=== PATIENT | female | born 1960 | race Caucasian/White ===

== ENCOUNTER 2020-11-09 06:54 | Outpatient (NON) | payer BC, SELFPAY ==
[2020-11-10 01:18] LABS: SARS-CoV-2 RNA PCR Negative
== END 2020-11-09 06:55 ==
LOC: ANHCOVIDDT 06:55
PROVIDERS: PCP Physician Assistant; Visit Provider Physician Assistant
DX: Z20.828 Contact with and (suspected) exposure to other viral communicable diseases (principal); R51.9 Headache, unspecified
CPT/HCPCS: 87635; C9803; U0003

== ENCOUNTER → 2021-06-11 06:35 | Outpatient (CLI) | payer SELFPAY ==
[2021-06-11 17:52] LABS: SARS-CoV-2 RNA PCR Negative
== END ==
PROVIDERS: PCP Physician Assistant
DX: R06.9 Unspecified abnormalities of breathing (principal); Z20.822 Contact with and (suspected) exposure to COVID-19
CPT/HCPCS: C9803; U0003; U0005

== ENCOUNTER → 2022-03-05 16:29 | Outpatient (CLI) | payer OTHER, SELFPAY ==
--- NOTE | ~2022-03-05 | XR_ITS ---
EXAMINATION: XR chest 2V DATE: 03/05/2022 16:39 INDICATION: Chronic cough. TECHNIQUE: Frontal and lateral views of the chest were obtained. COMPARISON: CT abdomen and pelvis 10/30/2019 FINDINGS: The chest demonstrates clear lungs without pneumonia, pleural effusion, or pneumothorax. Th e heart size is normal. IMPRESSION: 1. No acute cardiopulmonary disease. Reviewed, dictated and finalized at location A.
== END ==
PROVIDERS: PCP Physician Assistant; Visit Provider Family Medicine
DX: R05.3 Chronic cough (principal)
CPT/HCPCS: 71046

== ENCOUNTER → 2022-06-25 13:57 | Outpatient (CLI) | payer OTHER, SELFPAY ==
--- NOTE | ~2022-06-25 | CT_ITS ---
EXAMINATION:CT diagnostic chest w con DATE: 06/25/2022 14:26 INDICATION: Chronic cough. TECHNIQUE: Computed tomography (CT) of the chest was performed with 75 mL Omnipaque 350 intravenous c ontrast. Automated exposure control and iterative reconstruction technique were employed. The dose-le ngth product (DLP) was 506.48 mGy-cm. COMPARISON: CT abdomen and pelvis 10/30/2019 FINDINGS: The lungs demonstrate minimal atelectasis. A calcified left lung nodule is consistent with old granulomatous disease. No pleural effusion. The heart size is normal. There are coronary artery c alcifications. No pericardial effusion. There is an 8 mm nodule in left thyroid lobe, likely not clin ically significant. There is a small sliding hiatal hernia. There are changes of cholecystectomy. The re is mild thoracic spondylosis. IMPRESSION: 1. Small sliding hiatal hernia. Reviewed, dictated and finalized at location A.
[2022-06-25 14:19] LABS: Estimated Glomerular Filt Rate > 60
== END ==
PROVIDERS: PCP Physician Assistant; Visit Provider Physician Assistant
DX: R05.3 Chronic cough (principal); K44.9 Diaphragmatic hernia without obstruction or gangrene
CPT/HCPCS: 71260; Q9967

== ENCOUNTER → 2022-07-30 10:52 | Outpatient (CLI) | payer OTHER, SELFPAY ==
--- NOTE | ~2022-07-30 | XR_ITS ---
EXAMINATION: XR barium swallow DATE: 07/30/2022 11:33 INDICATION: Chronic cough and dysphagia TECHNIQUE: The patient drank thick barium, gas-producing crystals, and thin barium. Fluoroscopy of th e hypopharynx and esophagus was performed. Fluoroscopy exposure time was 2.7 minutes. The DAP for thi s procedure was 18.882 Gycm2. COMPARISON: None. FINDINGS: There is no mass or stricture of the esophagus. Esophageal motility is normal. There is a s mall sliding hiatal hernia. There is a large volume of asymptomatic spontaneous gastroesophageal refl ux. The stomach shows a normal folding pattern. IMPRESSION: 1. Large volume of asymptomatic spontaneous gastroesophageal reflux. 2. Small sliding hiatal hernia. Reviewed, dictated and finalized at location B.
== END ==
PROVIDERS: PCP Physician Assistant; Visit Provider Physician Assistant
DX: R05.3 Chronic cough (principal); K44.9 Diaphragmatic hernia without obstruction or gangrene; K21.9 Gastro-esophageal reflux disease without esophagitis
CPT/HCPCS: 74220

== ENCOUNTER → 2022-08-04 15:39 | Outpatient (CLI) | payer OTHER, SELFPAY ==
--- NOTE | ~2022-08-04 | XR_ITS ---
EXAMINATION: XR cervical spine min 6V DATE: 08/04/2022 16:40 INDICATION: Neck pain. Headache. TECHNIQUE: 7 views of cervical spine including flexion and extension views were obtained. COMPARISON: None. FINDINGS: There is 6 degrees levocurvature of cervicothoracic spine. Vertebral body heights are ricardo l. There is mildly decreased disc height at C3-C4 and moderately decreased disc height at C5-C6 and C 6-C7. There is multilevel uncovertebral joint osteoarthritis, moderate to severe bilaterally at C5-C6 and C6-C7. There is multilevel mild facet joint osteoarthritis. On the right, there is moderate neur al foraminal stenosis at C5-C6 and C6-C7. The cervical spine is hypomobile inferiorly with flexion an d extension. There is mild central canal stenosis at C5-C6 and C6-C7. No prevertebral soft tissue swe lling. IMPRESSION: 1. Moderate cervical spondylosis. Reviewed, dictated and finalized at location A.
== END ==
PROVIDERS: PCP Physician Assistant; Visit Provider Chiropractor
DX: R51.9 Headache, unspecified (principal); M47.892 Other spondylosis, cervical region
CPT/HCPCS: 72052

== ENCOUNTER → 2022-08-07 16:25 | Outpatient (CLI) | payer OTHER, SELFPAY ==
--- NOTE | ~2022-08-07 | XR_ITS ---
EXAMINATION: XR sacrum coccyx min 2V INDICATION: SC1-70 antibody positive, arthralgia TECHNIQUE: Three views of the sacrum and coccyx are obtained. COMPARISON: None available FINDINGS: Bone alignment is normal. There is no fracture. No abnormal sclerosis or erosion are identi fied. There is mild osteoarthritis of the hips. Phleboliths are noted in the pelvis. There is moderat e lumbar spondylosis at L5-S1. IMPRESSION: 1. No acute osseous abnormality. Reviewed, dictated and finalized at location B.
--- NOTE | ~2022-08-07 | XR_ITS ---
EXAMINATION: XR lumbar spine 2-3V DATE: 08/07/2022 17:53 INDICATION: SCL-70 antibody positive, arthralgia TECHNIQUE: Anteroposterior and lateral views of the lumbar spine, and cone-down lateral view of the l umbosacral junction were obtained. COMPARISON: 10/10/2011 FINDINGS: Bone alignment is normal. There is no fracture. The vertebral heights are normal. There is moderate loss of intervertebral disc space height at L5-S1 and mild loss of intervertebral disc space height throughout the remaining lumbar spine. Small degenerative osteophytes project from the anteri or endplates of multiple vertebral bodies. There is moderate facet joint osteoarthritis of the lower lumbar spine. IMPRESSION: 1. Moderate lumbar spondylosis without acute findings. Reviewed, dictated and finalized at location B.
== END ==
DX: R76.8 Other specified abnormal immunological findings in serum (principal); M25.541 Pain in joints of right hand; M25.542 Pain in joints of left hand; M25.571 Pain in right ankle and joints of right foot; M25.572 Pain in left ankle and joints of left foot; M47.816 Spondylosis without myelopathy or radiculopathy, lumbar region
CPT/HCPCS: 72100; 72220

== ENCOUNTER 2022-08-22 11:21 | Emergency (ER) | payer OTHER, SELFPAY ==
--- NOTE | ~2022-08-22 | XR_ITS ---
XR foot LT min 3V 08/22/2022 11:38 Indication: Trauma to the left first and second toes. Procedure: 4 views left foot Comparison: No prior studies for comparison. Findings: No fracture, subluxation or dislocation. No significant soft tissue abnormality. No foreign bodies. Lisfranc joint intact. Impression: 1: No acute fracture. Reviewed, dictated and finalized at location B. Impression: 1: No acute fracture.
--- NOTE | 2022-08-22 11:27 | ED.LOWEXIN ---
HPI - Extremity Injury (Lower) General Stated Complaint: INJURED TOE Time Seen by Provider: 08/22/22 11:30 Source: patient Mode of arrival: ambulatory Limitations: no limitations History of Present Illness HPI Narrative: Ms. Mendez is a 62-year-old female patient presenting to the clinic today with complaints of right great toe and second toe pain after dropping a 2 x 4 on it this morning. She reports pain is towards the end of the toe. No open wounds to the second or great toe. Related Data Home Medications Medication Instructions Recorded Confirmed alprazolam 0.25 mg tablet 0.25 mg PO 08/22/22 hydrochlorothiazide 12.5 mg capsule 12.5 mg PO DAILY 08/22/22 08/22/22 meloxicam 7.5 mg tablet 7.5 mg PO BID 08/22/22 08/22/22 potassium chloride 10 mEq 10 meq PO DAILY 08/22/22 08/22/22 tablet,extended release tizanidine 4 mg tablet 4 mg PO Q8H 08/22/22 08/22/22 Allergies Allergy/AdvReac Type Severity Reaction Status Date / Time amoxicillin Allergy Unknown Rash Verified 08/22/22 11:30 Penicillins Allergy Rash Verified 08/22/22 11:30 Review of Systems Review of Systems: Pertinent positives per HPI. Patient denies any fever, chills, rash, headache, visual changes, dizziness, cough, runny nose, sore throat, shortness of breath, chest pain, palpitations, nausea, vomiting, diarrhea, constipation, abdominal pain, or any urinary issues. [facility] Past Medical History Medical History (Updated 08/22/22 @ 11:50 by Darien Cunningham APRN) Anemia Basal cell carcinoma (BCC) forehead Common bile duct dilatation Elevated liver enzymes GERD (gastroesophageal reflux disease) Jaundice Uterine fibroid Surgical History Surgical History Hx of local excision of skin lesion removal of basal cell carcinoma on forehead Family History Family History Father Cerebrovascular accident Grandparent Family history of arthritis Mother Family history of mental disorder Social History Social History Smoking status: Never smoker Alcohol intake: never Substance use: never Gender identity (if verbalized by the patient): Female Spiritual care concerns: No Agree to blood products: Yes Comments At the time of my signature, I reviewed and agree with the nursing past medical, surgical, social, and family history. There is no relevant family history pertinent to the patient complaint. Exam Narrative: General: Well-developed, well nourished, in no apparent distress Head: Normocephalic, atraumatic. Cardio: Regular rate and rhythm, s1 and s2 normal, no murmur appreciated. Resp: Clear to auscultation bilaterally, no rhonchi, rales, wheezing or rubs. Musculoskeletal: No deformity, mild redness to the distal great toe, tender to palpation over the distal great and second toe, grossly normal range of motion, muscle strength strong and equal, peripheral pulse strong, no edema, no cyanosis, normal gait and station Course Course Emergency Course: Portions of this record may have been created with voice recognition software. Level of Care: Express Care Visit Vital Signs Vital signs: Vital signs reviewed MDM - Extremity Injury (Lower) MDM Narrative Medical decision making narrative: At the time of visit patient is resting comfortably on the exam table. X-ray was completed and was negative for any fracture or malalignment of the right foot. Supportive measures were discussed with the patient she voiced understanding of discharge instructions and agrees to the treatment plan. Differential Diagnosis Differential diagnosis: Likely fracture of toe and other (Toe contusion, soft tissue injury) Imaging Data Radiologist's impression: Close Foot X-Ray (Signed) Heath Dugan - 08/22/22 Launch?[facility] [place] [id number]
[2022-08-22 11:38] VITALS: BP 184/95; PULSE 98; RESP 16; TEMP 36.8; O2SAT 97
== END 2022-08-22 11:54 | disposition home or self-care (01) ==
PROVIDERS: Emergency Provider Nurse Practitioner Family; PCP Physician Assistant
DX: S90.111A Contusion of right great toe without damage to nail, initial encounter (principal); S90.122A Contusion of left lesser toe(s) without damage to nail, initial encounter; W20.8XXA Other cause of strike by thrown, projected or falling object, initial encounter; K21.9 Gastro-esophageal reflux disease without esophagitis; Z85.828 Personal history of other malignant neoplasm of skin
CPT/HCPCS: 73630; 99213; G0463

== ENCOUNTER → 2022-10-20 13:28 | Outpatient (CLI) | payer OTHER, SELFPAY ==
--- NOTE | ~2022-10-20 | MM_ITS ---
EXAMINATION: MM screening lisset BI w indira HISTORY: Screening mammogram TECHNIQUE: Craniocaudal and mediolateral oblique 3-D tomosynthesis images were obtained and synthetic 2-D images were generated. CAD analysis was submitted and interpreted. COMPARISON: No prior mammogram is available for comparison at this institution. BREAST PARENCHYMAL COMPOSITION: There are scattered areas of fibroglandular density. FINDINGS: No suspicious mass, calcification, or architectural distortion are identified in either nan ast to suggest malignancy. IMPRESSION: 1. No mammographic evidence of malignancy. 2. Recommend routine screening mammography in one year. BI-RADS Category 1: Negative Reviewed, dictated and finalized at location A. 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
== END ==
PROVIDERS: PCP Physician Assistant; Visit Provider Obstetrics & Gynecology Gynecology
DX: Z12.31 Encounter for screening mammogram for malignant neoplasm of breast (principal)
CPT/HCPCS: 77063; 77067

== ENCOUNTER → 2022-11-10 12:16 | Outpatient (CLI) | payer OTHER, SELFPAY ==
--- NOTE | ~2022-11-10 | DEXA_ITS ---
Bone Density Report Name: JESUS WILKINS Age: 62 Sex: Female Ethnicity: White Date of : 1960 Indication: postmenopausal; screening for osteoporosis; Referring Provider: DOUG RUIZ Study: Bone densitometry was performed. Exam Date: November 10, 2022 Accession number: [id number] Bone Density: Region BMD T-score Z-score Classification AP Spine (L1-L4) 1.101 0.5 1.9 Normal Femoral Neck (Left) 0.992 1.3 2.6 Normal Total Hip (Left) 1.003 0.5 1.5 Normal Femoral Neck (Right) 0.914 0.6 1.9 Normal Total Hip (Right) 1.016 0.6 1.6 Normal Total Hip Mean 1.010 0.6 1.6 Normal World Health Organization criteria for BMD impression classify patients as: Normal (T-score at or above -1.0), Osteopenia (T-score between -1.0 and -2.5), or Osteoporosis (T-score at or below -2.5). 10-year Fracture Risk: FRAX not reported because: All T-scores for Spine Total, Hip Total, Femoral Neck at or above -1.0 Clinical Information Provided by Patient: Has used the following medications: Vitamin D, MTV Patient maximum height was 64 Menopause Age: 60 No regular weight bearing exercise Does not regularly consume dairy products Onset of menses at age 14 Number of children 2 Impression: The patient has normal bone mass. Discussion: BONE DENSITY IS ABOVE THE MINIMUM DESIRABLE LEVEL AT ALL SKELETAL SITES TESTED. This patient?s bone mineral density is above the minimum desirable level (T-score -1.0 or better) at all sites measured. The patient should follow a healthful lifestyle (good nutrition with adequate calcium and vitamin D, and appropriate weight-bearing exercise). Follow-Up: Consider repeating this study in 5 years or sooner if there is some new clinical indication. Reported by: KARLI on 11/10/2022 1:16:00 PM. Reviewed, dictated and finalized at location AAmos BOONE
== END ==
PROVIDERS: PCP Obstetrics & Gynecology Gynecology; Visit Provider Obstetrics & Gynecology Gynecology
DX: Z78.0 Asymptomatic menopausal state (principal)
CPT/HCPCS: 77080

== ENCOUNTER → 2024-01-21 12:40 | Outpatient (CLI) | payer OTHER, SELFPAY ==
--- NOTE | ~2024-01-21 | US_ITS ---
EXAMINATION: US transvaginal DATE: 01/21/2024 13:09 INDICATION: Postmenopausal bleeding TECHNIQUE: Multiple endovaginal sonographic images of the pelvis were obtained. COMPARISON: None. FINDINGS: The uterus measures 7.4 x 3.0 x 6.0 cm. The endometrial complex measures 6 mm. Intramural f ibroids of the uterus measure up to 2.2 cm. The left ovary is not visualized however no left adnexal abnormality is seen. The right ovary measures 1.9 x 1.1 x 1.2 cm. There is normal vascular flow in th e right ovary. There is no free fluid in the pelvis. IMPRESSION: 1. Uterine fibroids. Reviewed, dictated and finalized at location F. AGE SCREENER IMPRESSION: 1. Uterine fibroids.
== END ==
PROVIDERS: PCP Obstetrics & Gynecology Gynecology; Visit Provider Obstetrics & Gynecology Gynecology
DX: N95.0 Postmenopausal bleeding (principal); D25.9 Leiomyoma of uterus, unspecified
CPT/HCPCS: 76830

== ENCOUNTER 2024-02-02 15:30 | Outpatient (CLI) | payer OTHER, SELFPAY ==
[2024-02-02 16:13] LABS: Anion Gap 5 mmol/L (8-16); Blood Urea Nitrogen 11 mg/dL (7-17); Carbon Dioxide 31 mmol/L (22-30); Chloride 95 mmol/L (98-107); Estimated Glomerular Filt Rate > 60; Glucose 96 mg/dL (65-110); Potassium 3.2 mmol/L (3.4-5.0); Sodium 131 mmol/L (137-145)
== END 2024-02-02 15:31 | disposition home or self-care (01) ==
LOC: ANHSURGERY 15:36
PROVIDERS: Anesthesiology; PCP Physician Assistant; Visit Provider Obstetrics & Gynecology Gynecology
DX: Z79.899 Other long term (current) drug therapy (principal); Z01.818 Encounter for other preprocedural examination
CPT/HCPCS: 36415; 80048

== ENCOUNTER 2024-02-08 01:58 | Day surgery (SDC) | payer OTHER, SELFPAY ==
[2024-02-02 08:45] VITALS: BMI 36.9
--- NOTE | 2024-02-02 08:50 | PC.NURSE ---
Report to the Outpatient Waiting Room, entrance under the green pavilion located off [facility], at time 7:00 on date 02/08/24. Planned Procedure Time: 9:00. Time changes happen often and if your time is changed the preop area will call you the afternoon before. - You and your visitor will be asked to self-screen and do not enter if you have any COVID symptoms. - A mask is optional within the hospital at this time. Patients may have clear liquids (water, carbonated beverages, clear teas, apple juice) until 3 hours prior to surgery (6:00) with a maximum of 20 ounces. - No food from midnight until time of surgery Take the following medications with a SIP of water the morning of surgery: EYE DROPS, ALPRAZOLAM IF NEEDED DO NOT STOP ANY OF YOUR OTHER PRESCRIPTION MEDICATIONS PRIOR TO SURGERY ?EXCEPT THE FOLLOWING Medications to discontinue per physician: VITAMINS Date to take last dose: 02/04/24 Please no make-up, nail faroese, hairspray, perfume, deodorant, or body powder the day of surgery. No jewelry (including any body piercings) or valuables the day of surgery, leave them at home. Please take a shower or bath the night before, or the morning of, surgery with an antibacterial soap. Wear comfortable, loose fitting clothing. - Jewelry must be removed prior to entering the operating room. Rings and piercings that are not removed may be cut off. - The hospital will not accept responsibility for valuables. - Please leave all valuables, including medications, at home the day of surgery. If you are going home after surgery, a licensed pizza delivery driver must drive you home. - NO public transportation without another adult if you receive anesthesia. - We recommend that an adult stay with you for 24 hours following discharge. - We also recommend that you do not drive, make important decision, drink alcoholic beverages, or take any drugs that were not prescribed by your health care provider for at least 24 hours after your discharge time. Follow any additional instructions given to you from your surgeon. If you or anyone in your household have experienced Covid symptoms in the past week, please notify your surgeon or the nurse liaison at the phone number below for possible testing. Telephone instructions given to GARETT LEE and asked if any additional questions and then verbalized understanding. Patient advised to call surgeon office or pre surgery nurse liaison [phone] if any additional questions.
[2024-02-08] MEDS: ACETAMINOPHEN 500 MG TABLET 1000 MG PO (07:09)
[2024-02-08 07:14] VITALS: BP 168/96; PULSE 87; RESP 16; TEMP 36.6; O2SAT 99
--- NOTE | 2024-02-08 07:22 | WPDHPUPDATE1 ---
History and Physical Update Update Date/Time: 02/08/24 07:22 History and Physical has been reviewed, including an updated exam of the patient. There are NO changes in the patient's condition. Risks, benefits, and alternatives have been discussed and questions answered. Patient agrees to proceed with procedure.
--- NOTE | 2024-02-08 07:23 | PM.HPGS ---
History of Present Illness History of Present Illness Consent: Risks, benefits, and alternatives have been discussed and questions answered. Patient agrees to proceed with procedure. Chief complaint: Post Menopausal Bleeding Narrative: Perla Mendez is a 63 year old female with an episode of postmenopausal bleeding. The patient underwent pelvic ultrasound which showed a thickened endometrium at 6mm. It was recommended to undergo D&C hysteroscopy. Risks of infection, bleeding, perforation, and possible pathology were reviewed. Patient voices understanding and agrees to proceed. 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, as well as basal cell Uterine fibroid Surgical History Surgical History (Updated 02/08/24 @ 07:25 by Amanda Farooq MD) History of hysteroscopy with myomectomy Hx of local excision of skin lesion removal of basal cell carcinoma on forehead Family History Family History Father Cerebrovascular accident Hypertension Heart disease Grandparent Family history of arthritis Hypertension Heart disease Cerebrovascular accident Mother Family history of mental disorder Depression Grandparent Heart disease Social History Social History Smoking status: Never smoker Alcohol intake: never Substance use: never Substance use type: does not use Lack of Transportation: No Lack of Food: Never True Current Housing: I Have Housing Concerned About Future Housing: No Difficulty Paying Gas/Electric Bills: No Difficulty Paying for Meds: No Currently Unemployed: No Education: Master's Degree or Higher Difficulty w/ Childcare or Family Care: No Living arrangements: alone Gender identity (if verbalized by the patient): Female Spiritual care concerns: No Agree to blood products: Yes Meds Home Medications and Allergies Home Medications Medication Instructions Recorded Confirmed Type alprazolam 0.25 mg tablet 0.25 mg PO PRN PRN Anxiety 08/22/22 02/02/24 History hydrochlorothiazide 12.5 mg capsule 12.5 mg PO DAILY 08/22/22 02/02/24 History meloxicam 7.5 mg tablet 7.5 mg PO BID PRN Pain 08/22/22 02/02/24 History potassium chloride 10 mEq 10 meq PO DAILY 08/22/22 02/02/24 History tablet,extended release acetaminophen 325 mg capsule 325 mg PO Q6H PRN Pain 07/30/23 02/02/24 History (Tylenol) cholecalciferol (vitamin D3) 50 50 mcg PO DAILY 07/30/23 02/02/24 History mcg (2,000 unit) capsule mometasone 0.1 % topical cream 1 applic topical DAILY #15 grams 07/30/23 02/02/24 Rx fluticasone propionate 50 2 - 3 spray intranasal BID #16 mL 10/26/23 02/02/24 Rx mcg/actuation nasal spray,suspension (Flonase Allergy Relief) latanoprost 0.005 % eye drops 1 drp EACH EYE DAILY 02/02/24 02/02/24 History Allergies Allergy/AdvReac Type Severity Reaction Status Date / Time amoxicillin Allergy Unknown Rash Verified 02/08/24 07:07 Penicillins Allergy Rash Verified 02/08/24 07:07 Vital Signs Vital Signs - 24 hr 02/08/24 07:14 Temperature 98 F Pulse Rate 87 Respiratory Rate 16 Blood Pressure 168/96 H Pulse Oximetry 99 Oxygen Delivery Room Air Exam Const: General: healthy appearing and alert Orientation/consciousness: patient oriented x3 Resp: Effort & Inspection: normal respiratory effort Auscultation: clear to auscultation bilaterally GI: GI Palp: Yes Soft to palpation, No Tenderness to palpation present (GI) and No Palpable mass present : External Female Exam: normal external ap
[2024-02-08] MEDS: LACTATED RINGERS 1,000 ML 30 ML IV CONT (07:53)
[2024-02-08 08:00] LABS: Sodium 137 mmol/L (137-145)
--- NOTE | 2024-02-08 08:01 | WPDANESEPPF ---
Anes - Initial Pre Proc Eval Procedure: Operation Date: 02/08/24 09:00 Proposed Procedures p Hysteroscopy Dilation and Curettage - Amanda Farooq MD Date/Time: 02/08/24 08:01 Surgeon: Amanda Farooq MD Pre Op Diagnosis: Post Menopausal Bleeding Patient Data Age: 63 Gender: F Height: 1.63 m Weight: 97.55 kg Last Vital Signs Temp 36.6 C 02/08/24 07:14 Pulse 87 02/08/24 07:14 Resp 16 02/08/24 07:14 BP 168/96 H 02/08/24 07:14 Pulse Ox 99 02/08/24 07:14 O2 Del Method Room Air 02/08/24 07:14 Allergies Allergy/AdvReac Type Severity Reaction Status Date / Time amoxicillin Allergy Unknown Rash Verified 02/08/24 07:07 Penicillins Allergy Rash Verified 02/08/24 07:07 Home Medications Medication Instructions Recorded Confirmed Type alprazolam 0.25 mg tablet 0.25 mg PO PRN PRN Anxiety 08/22/22 02/02/24 History hydrochlorothiazide 12.5 mg capsule 12.5 mg PO DAILY 08/22/22 02/02/24 History meloxicam 7.5 mg tablet 7.5 mg PO BID PRN Pain 08/22/22 02/02/24 History potassium chloride 10 mEq 10 meq PO DAILY 08/22/22 02/02/24 History tablet,extended release acetaminophen 325 mg capsule 325 mg PO Q6H PRN Pain 07/30/23 02/02/24 History (Tylenol) cholecalciferol (vitamin D3) 50 50 mcg PO DAILY 07/30/23 02/02/24 History mcg (2,000 unit) capsule mometasone 0.1 % topical cream 1 applic topical DAILY #15 grams 07/30/23 02/02/24 Rx fluticasone propionate 50 2 - 3 spray intranasal BID #16 mL 10/26/23 02/02/24 Rx mcg/actuation nasal spray,suspension (Flonase Allergy Relief) latanoprost 0.005 % eye drops 1 drp EACH EYE DAILY 02/02/24 02/02/24 History Laboratory Tests 02/08/24 07:49 Sodium 137 mmol/L (137-145) Patient hx anesthesia problems: none Family hx anesthesia problems: none Results Review: All pre-operative results and documents have been reviewed as part of the pre-operative evaluation. 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, as well as basal cell Uterine fibroid Surgical History Surgical History History of hysteroscopy with myomectomy Hx of local excision of skin lesion removal of basal cell carcinoma on forehead Family History Family History Father Cerebrovascular accident Hypertension Heart disease Grandparent Family history of arthritis Hypertension Heart disease Cerebrovascular accident Mother Family history of mental disorder Depression Grandparent Heart disease Social History Social History Smoking status: Never smoker Alcohol intake: never Substance use: never Substance use type: does not use Lack of Transportation: No Lack of Food: Never True Current Housing: I Have Housing Concerned About Future Housing: No Difficulty Paying Gas/Electric Bills: No Difficulty Paying for Meds: No Currently Unemployed: No Education: Master's Degree or Higher Difficulty w/ Childcare or Family Care: No Living arrangements: alone Gender identity (if verbalized by the patient): Female Spiritual care concerns: No Agree to blood products: Yes Anes - Eval Final PreProcedure Day of Procedure 02/08/24 08:01 Patient weight: normal Heart: regular rate and rhythm Lungs: clear to auscultation Airway: Mallampati scale class II Neurological: alert and oriented Last oral intake: >/= 8 hours ASA classification: III Emergent: no Anesthetic plan: proceed Anesthesia type and monitoring: general GIVS and standard monitoring Results Review: All pre-operative results and documents have been reviewed as pa
[2024-02-08 09:01] VITALS: BP 134/84; PULSE 71; RESP 16
--- NOTE | 2024-02-08 09:22 | P.OP_ITS ---
Procedure Note - Detailed Date of Procedure 02/08/24 Pre-op Diagnosis Post Menopausal Bleeding Post-op Diagnosis Same Procedure Performed D&C hysteroscopy with partial myomectomy Surgeon Amanda Farooq MD Anesthesia MAC Findings uterus sounds to 8cm; there is a large posterior fibroid; the endometrium a ppears atrophic Description of Procedure The patient is taken to the operating room and placed under anesthesia in the dorsal lithotomy position. She was prepped and draped in the usual sterile fashion. [place] speculum was placed in the vagina and the cervix grasped on the anterior lip with a tenaculum. The uterus is sounded to 8cm. The hyster oscope was placed and the endometrium appears grossly atrophic with a large fibroid filling the lower half of the cavity. I was unable to see around the fibroid posteriorly. The top half of the fibroid is removed using the Aveeta resection device. Once I was able to see around the fibroid posteriorly and no masses or lesions were noted, the myomectomy was stopped as the patient is postmenopausal and the fibroid is unlikely to be causing bleeding. The hysteroscope was removed. The sharp curette was used to curette the endometrium until a good uterine cry was noted in all areas. All instruments are removed. Sponge, needle, and instrument counts are correct per the OR staff. The patient was awakened from anesthesia and taken to recovery in stable condition. Estimated Blood Loss 5 Drains No Packing No Pathology Yes ( Endometrial shavings and curettings) Complications No immediate complications Condition Stable Disposition PACU
[2024-02-08] MEDS: oxyCODONE HCL (*CRX) 5 MG TAB IR PO (09:23)
[2024-02-08 09:30] VITALS: BP 150/71; PULSE 68; RESP 16
[2024-02-08 09:55] VITALS: BP 147/87; PULSE 67; RESP 16
== END 2024-02-08 09:59 | disposition home or self-care (01) ==
PROVIDERS: Anesthesiology; PCP Physician Assistant; Visit Provider Obstetrics & Gynecology Gynecology
PROC: 0U5B8ZZ Destruction of Endometrium, Via Natural or Artificial Opening Endoscopic (ICD-10-PCS; CPT 58563; principal; 2024-02-08 09:00)
DX: N95.0 Postmenopausal bleeding (principal); N85.8 Other specified noninflammatory disorders of uterus; D64.9 Anemia, unspecified; K21.9 Gastro-esophageal reflux disease without esophagitis; Z98.890 Other specified postprocedural states; Z85.820 Personal history of malignant melanoma of skin; Z85.828 Personal history of other malignant neoplasm of skin; Z82.49 Family history of ischemic heart disease and other diseases of the circulatory system
CPT/HCPCS: 58561; 36415; 80048; 84295; 88305; A9270; J2704; J3010; J7120

== ENCOUNTER 2024-07-01 12:24 | Outpatient (CLI) | payer OTHER, SELFPAY ==
--- NOTE | ~2024-07-01 | MM_ITS ---
EXAMINATION: MM screening lisset BI w indira HISTORY: Screening TECHNIQUE: Craniocaudal and mediolateral oblique 3-D tomosynthesis images were obtained and synthetic 2-D images were generated. CAD analysis was submitted and interpreted. COMPARISON: 10/20/2022 BREAST PARENCHYMAL COMPOSITION: Not dense: There are scattered areas of fibroglandular density. FINDINGS: There is no evidence of suspicious mass, calcification, or architectural distortion to sugg est malignancy in either breast. There has been no suspicious interval change. IMPRESSION: 1. No mammographic evidence of malignancy. 2. Recommend routine screening mammography in one year. BI-RADS Category 1: Negative Reviewed, dictated and finalized at location B.
== END 2024-07-01 12:25 ==
LOC: MICIMG 12:25
PROVIDERS: PCP Physician Assistant; Visit Provider Nurse Practitioner
DX: Z12.31 Encounter for screening mammogram for malignant neoplasm of breast (principal)
CPT/HCPCS: 77063; 77067

== ENCOUNTER 2024-08-22 12:48 | Outpatient (CLI) | payer OTHER, SELFPAY ==
--- NOTE | ~2024-08-22 | CT_ITS ---
CT of the Abdomen and Pelvis: Indication: Abdominal pain Technique: 2.5 mm axial scans were obtained through the abdomen and pelvis following intravenous adm inistration of 100 cc of Omnipaque 350. Dose reduction technique was used on this scan by utilizing a utomated exposure control and iterative reconstruction technique. The dose-length product (DLP) was 1 118.23 mGy-cm. Findings: Scans through the lung bases are unremarkable. Probable diffuse hepatic steatosis. Cholecystectomy clips are present. The spleen, pancreas, adrenals and kidneys are within normal limits. No evidence of aortic aneurysm. No lymphadenopathy. No bowel obstruction or bowel wall thickening. There is minimal haziness in the central mesentery wit h small shotty lymph nodes. Images through the pelvis were performed. Urinary bladder unremarkable. Probable uterine fibroids. No other adnexal mass seen. No ascites. Impression: Mild central mesenteric panniculitis. Diffuse hepatic steatosis. Uterine fibroids. Reviewed, dictated and finalized at [facility]. Impression: Mild central mesenteric panniculitis. Diffuse hepatic steatosis. Uterine fibroids.
[2024-08-22 14:04] LABS: Estimated Glomerular Filt Rate > 60
== END 2024-08-22 12:49 | disposition home or self-care (01) ==
LOC: ANHIMG 12:50
PROVIDERS: Visit Provider Physician Assistant
DX: K65.4 Sclerosing mesenteritis (principal); K76.0 Fatty (change of) liver, not elsewhere classified; D25.9 Leiomyoma of uterus, unspecified
CPT/HCPCS: 74177; Q9967

== ENCOUNTER 2025-01-13 07:18 | Outpatient (CLI) | payer OTHER, SELFPAY ==
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
--- OUTSIDE RECORDS SUMMARY | 2025-01-13 07:29 | XMS_ITS | Referral Summary ---
Author Organization [facility] Address [address] [place] [address] Care Team Providers Care Lens And Frames Prescription Clerk Name Role Phone Kathy Saeed Primary Care Pr ovider Source Comments [facility],non-[facility] Affiliates and Associated Physician Practices is amultiple site organization consisting of ambulatory clinics and hospital sitesin [place], [place], [place] and [place]. This disclosure is being madepursuant to the Care Everywhere program and may not contain all information available regarding this patient. Last updated 18.[facility] Vinted Allergies Active Allergy Reactions Criticality Noted Date Comments Amoxicillin Rash Medium 03/03/2017 Lisinopril Cough High 01/05/2020 Sulfa Drugs Unknown 01/05/2020 Medications * Be aware that medications may not be up to date on this document. Alwaysverify current medications with the patient. Medication Sig Dispensed Refills Start Date End Date Status Cetirizine HCl (ZYRTEC PO) Active potassium chloride ER (Klor-Con) 10 MEQ tablet Take 1 (one) tablet by mouth once daily 06/05/2022 Active hydroCHLOROthiazide (Microzide) 12.5 MG capsule Take 1 (one) capsule by mouth once daily 06/10/2022 Active dicyclomine (Bentyl) 10 MG capsule Take 1 (one) capsule by mouth once daily as needed Active calcium carbonate - vitamin D (Caltrate + D) 600-800 MG-UNIT tablet Take 1 (one) tablet by mouth once daily Active Biotin 1 MG Take 1 capsule by mouth once daily Active ALPRAZolam (Xanax) 0.25 MG tablet Take 1 (one) tablet by mouth 3 times daily as needed 06/05/2022 Active meloxicam (Mobic) 7.5 MG tablet Take 1 (one) tablet by mouth once daily 90 tablet 3 12/15/2022 Active tiZANidine (Zanaflex) 4 MG tablet Take 1 (one) tablet by mouth every 8 hours as needed 08/07/2022 Active omeprazole (PriLOSEC) 40 MG capsule Take 1 (one) capsule by mouth once daily 08/14/2022 Active meloxicam (Mobic) 7.5 MG tablet Take 1 (one) tablet by mouth 2 times daily Active latanoprost (Xalatan) 0.005 % ophthalmic solution Instill 1 (one) drop into left eye at bedtime 12/15/2022 Active Cholecalciferol 50 MCG (2000 UT) Take 1 (one) tablet by mouth once daily Active B Complex Vitamins CAPS Take 1 tablet by mouth once daily Active Social History Tobacco Use Types Packs/Day Years Used Date Smoking Tobacco: Never Smokeless Tobacco: Never Alcohol Use Standard Drinks/Week Comments Yes 0 (1 standard drink = 0.6 oz pur e alcohol) OCASSIONLY PHQ-2 Answer Date Recorded PHQ2 TOTAL SCORE 0 09/08/2022 Sex and Gender Information Value Date Recorded Sex Assigned at Not on file Gender Identity Not on file Sexual Orientation Not on file Last Filed Vital Signs Vital Sign Reading Time Taken Comments Blood Pressure 150/69 09/08/2022 12:45 PM CDT Pulse 88 03/03/2017 4:16 PM CDT Temperature 36.2 C (97.1 F) 09/08/2022 12:45 PM CDT Respiratory Rate 16 03/03/2017 4:16 PM CDT Oxygen Saturation 97% 03/03/2017 4:16 PM CDT Inhaled Oxygen Concentration - - Weight 98.9 kg (218 lb) 12/15/2022 1:13 PM RAILROAD SIGNAL AND SWITCH OPERATOR Height 162.6 cm (5' 4 ) 12/15/2022 1:13 PM RAILROAD SIGNAL AND SWITCH OPERATOR Body Mass Index 37.42 12/15/2022 1:13 PM RAILROAD SIGNAL AND SWITCH OPERATOR Plan of Treatment Not on file Procedures Procedure Name Priority Date/Time Associated Diagnosis Comments COMPREHENSIVE METABOLIC PANEL Routine 01/01/2023 10:15 AM RAILROAD SIGNAL AND SWITCH OPERATOR Scl-70 antibody positive Arthralgia of both hands from Last 3 Months or Most Recently Relevant to Health Maintenance Results * (ABNORMAL) COMPREHENSIVE METABOLIC PANEL (01/01/2023 10:15 AM RAILROAD SIGNAL AND SWITCH OPERATOR) Glucose 89 70 - 99 mg/dL [facility] INSURANCE BILL BUN 12 8 - 27 mg/dL [facility] INSURANCE BILL Creatinine 0.79 0.57 - 1.00 mg/dL [facility] INSURANCE BILL eGFR by CKD-EPI 86 >59 mL/min/1.7 3 [facility] INSURANCE BILL BUN/Creatinine Ratio 15 12 - 28 [facility] INSURANCE BILL Sodium 135 134 - 144 mmol/L [facility] INSURANCE BILL Potassium 4.0 3.5 - 5.2 mmol/L [facility] INSURANCE BILL Chloride 94(L) 96 - 106 mmol/L [facility] INSURANCE BILL CO2 27 20 - 29 mmol/L [facility] INSURANCE BILL Calcium 9.5 8.7 - 10.3 mg/dL [facility] INSURANCE BILL Protein Total 7.1 6.0 - 8.5 g/dL [facility] INSURANCE BILL Albumin 4.7 3.8 - 4.9 g/dL [facility] INSURANCE BILL Globulin Total 2.4 1.5 - 4.5 g/dL [facility] INSURANCE BILL Albumin/Globulin Ratio 2.0 1.2 - 2.2 [facility] INSURANCE BILL Bilirubin Total 0.6 0.0 - 1.2 mg/dL [facility] INSURANCE BILL Alkaline Phosphatase 90 44 - 121 IU/L [facility] INSURANCE BILL AST 22 0 - 40 IU/L [facility] INSURANCE BILL ALT 21 0 - 32 IU/L [facility] INSURANCE BILL Blood BLOOD SPECIMEN / Unknown 01/01/2023 10:15 AM RAILROAD SIGNAL AND SWITCH OPERATOR 01/01/2023 Narrative Resulting Agency Comment Lab Testing performed at: [facility] [address] [facility] [id number] Heath Pimentel MD LAB - CHEMISTRY [place] [facility] INSURANCE BILL [address] [place] [address] from Last 3 Months or Most Recently Relevant to Health Maintenance Care Teams Lens And Frames Prescription Clerk Relationship Specialty Start Date End Date Kathy Saeed PA [address] [place] [address] [place] [address] PCP - General 03/28/22
--- OUTSIDE RECORDS SUMMARY | 2025-01-13 07:29 | XMS_ITS | Patient Health Summary ---
Author Organization [facility] Address [address] [facility] [place] [address] Care Team Providers Care Clinical Safety Specialist Name Role Phone Kathy Saeed Primary Care Pr ovider Note from [facility] [place] [facility] [place]non-owned Affiliates and Associated Physician Practices is amultiple site organization consisting of ambulatory clinics and hospital sitesin [place], [place], [place] and [place]. This disclosure is being madepursuant to the Care Everywhere program and may not contain all information available regarding this patient. Last updated 18.[facility] Allergies * Amoxicillin(Rash) -Medium Criticality * Lisinopril(Cough) -High Criticality * Sulfa Drugs(Unknown) Medications * Be aware that medications may not be up to date on this document. Alwaysverify current medications with the patient. * Cetirizine HCl (ZYRTEC PO) * potassium chloride ER (Klor-Con) 10 MEQ tablet(Started 06/05/2022) Take 1 (one) tablet by mouth once daily * hydroCHLOROthiazide (Microzide) 12.5 MG capsule(Started 06/10/2022) Take 1 (one) capsule by mouth once daily * dicyclomine (Bentyl) 10 MG capsule Take 1 (one) capsule by mouth once daily as needed * calcium carbonate - vitamin D (Caltrate + D) 600-800 MG-UNIT tablet Take 1 (one) tablet by mouth once daily * Biotin 1 MG Take 1 capsule by mouth once daily * ALPRAZolam (Xanax) 0.25 MG tablet(Started 06/05/2022) Take 1 (one) tablet by mouth 3 times daily as needed * meloxicam (Mobic) 7.5 MG tablet(Started 12/15/2022) Take 1 (one) tablet by mouth once daily 3 refills by 12/15/2023 * tiZANidine (Zanaflex) 4 MG tablet(Started 08/07/2022) Take 1 (one) tablet by mouth every 8 hours as needed * omeprazole (PriLOSEC) 40 MG capsule(Started 08/14/2022) Take 1 (one) capsule by mouth once daily * meloxicam (Mobic) 7.5 MG tablet Take 1 (one) tablet by mouth 2 times daily * latanoprost (Xalatan) 0.005 % ophthalmic solution(Started 12/15/2022) Instill 1 (one) drop into left eye at bedtime * Cholecalciferol 50 MCG (2000 UT) Take 1 (one) tablet by mouth once daily * B Complex Vitamins CAPS Take 1 tablet by mouth once daily Social History Tobacco Use Types Packs/Day Years [...] 98.9 kg (218 lb) 12/15/2022 1:13 PM CERTIFIED JUVENILE PROBATION OFFICER Height 162.6 cm (5' 4 ) 12/15/2022 1:13 PM CERTIFIED JUVENILE PROBATION OFFICER Body Mass Index 37.42 12/15/2022 1:13 PM CERTIFIED JUVENILE PROBATION OFFICER Procedures * URINALYSIS MICROSCOPIC ONLY REFLEXED(Performed 01/01/2023) Performed for Scl-70 antibody positive, Arthralgia of both hands * URINALYSIS W/MICROSCOPIC REFLEX TO CULTURE(Performed 01/01/2023) Performed for Scl-70 antibody positive, Arthralgia of both hands * ERYTHROCYTE SEDIMENTATION RATE(Performed 01/01/2023) Performed for Scl-70 antibody positive, Arthralgia of both hands * C-REACTIVE PROTEIN(Performed 01/01/2023) Performed for Scl-70 antibody positive, Arthralgia of both hands * COMPREHENSIVE METABOLIC PANEL(Performed 01/01/2023) Performed for Scl-70 antibody positive, Arthralgia of both hands * CBC W AUTO DIFFERENTIAL(Performed 01/01/2023) Performed for Scl-70 antibody positive, Arthralgia of both hands * CULTURE URINE COMPREHENSIVE(Performed 01/01/2023) Performed for Scl-70 antibody positive, Arthralgia of both hands * PFT-LAB(Performed 10/30/2022) Performed for Scl-70 antibody positive * ECHO COMPLETE(Performed 10/30/2022) Performed for Scl-70 antibody positive * JIMENEZ (SM)+TUBING OILER ANTIBODY PANEL(Performed 09/11/2022) Performed for Scl-70 antibody positive, Arthralgia of both hands * SCLERODERMA 70 (SCL) ANTIBODY(Performed 09/11/2022) Performed for Scl-70 antibody positive, Arthralgia of both hands * RNA POLYMERASE III ANTIBODY IGG(Performed 09/11/2022) Performed for Scl-70 antibody positive, Arthralgia of both hands * CENTROMERE B ANTIBODIES(Performed 09/11/2022) Performed for Scl-70 antibody positive, Arthralgia of both hands * URINALYSIS W/MICROSCOPIC NO CULTURE(Performed 08/07/2022) Performed for Scl-70 antibody positive, Arthralgia of both hands, Pain in joints of both feet * VITAMIN D 25-HYDROXY(Performed 08/07/2022) Performed for Scl-70 antibody positive, Arthralgia of both hands, Pain in joints of both feet * ERYTHROCYTE SEDIMENTATION RATE(Performed 08/07/2022) Performed for Scl-70 antibody positive, Arthralgia of both hands, Pain in joints of both feet * C-REACTIVE PROTEIN(Performed 08/07/2022) Performed for Scl-70 antibody positive, Arthralgia of both hands, Pain in joints of both feet * LDH BLOOD(Performed 08/07/2022) Performed for Scl-70 antibody positive, Arthralgia of both hands, Pain in joints of both feet * COMPREHENSIVE METABOLIC PANEL(Performed 08/07/2022) Performed for Scl-70 antibody positive, Arthralgia of both hands, Pain in joints of both feet * ALDOLASE(Performed 08/07/2022) Performed for Scl-70 antibody positive, Arthralgia of both hands, Pain in joints of both feet * CK BLOOD(Performed 08/07/2022) Performed for Scl-70 antibody positive, Arthralgia of both hands, Pain in joints of both feet * CBC W AUTO DIFFERENTIAL(Performed 08/07/2022) Performed for Scl-70 antibody positive, Arthralgia of both hands, Pain in joints of both feet * RNA POLYMERASE III ANTIBODY IGG(Performed 08/07/2022) Performed for Scl-70 antibody positive, Arthralgia of both hands, Pain in joints of both feet * CENTROMERE B ANTIBODIES(Performed 08/07/2022) Performed for Scl-70 antibody positive, Arthralgia of both hands, Pain in joints of both feet * GUS PANEL COMPREHENSIVE(Performed 08/07/2022) Performed for Scl-70 antibody positive, Arthralgia of both hands, Pain in joints of both feet * IMAGING/RADIOLOGY/XRAY RESULTS ORDER(Performed 08/07/2022) * XR FOOT RIGHT 3VW OR MORE(Performed 07/31/2022) Performed for Scl-70 antibody positive, Arthralgia of both hands, Pain in joints of both feet * XR FOOT LEFT 3VW OR MORE(Performed 07/31/2022) Performed for Scl-70 antibody positive, Arthralgia of both hands, Pain in joints of both feet * XR HAND RIGHT 3VW OR MORE(Performed 07/31/2022) Performed for Scl-70 antibody positive, Arthralgia of both hands, Pain in joints of both feet * XR HAND LEFT 3VW OR MORE(Performed 07/31/2022) Performed for Scl-70 antibody positive, Arthralgia of both hands, Pain in joints of both feet * XR LUMBAR SPINE 1VW(Performed 07/31/2022) Performed for Scl-70 antibody positive, Arthralgia of both hands, Pain in joints of both feet Results * URINALYSIS MICROSCOPIC ONLY REFLEXED (01/01/2023 10:15 AM CERTIFIED JUVENILE PROBATION OFFICER) WBC UA 0-5 0 - 5 /hpf [facility] INSURANCE BILL RBC UA None seen 0 - 2 /hpf [facility] INSURANCE BILL Epithelial Cells (non renal) 0-10 0 - 10 /hpf [facility] INSURANCE BILL Epithelial Cells (renal) NOT AVAILABLE [facility] INSURANCE BILL Comment:Result cannot be obt ained for this observation. Casts ua None seen None seen /lpf [facility] INSURANCE BILL Casts UA NOT AVAILABLE [facility] INSURANCE BILL Comment:Result cannot be obt ained for this observation. Crystals UA NOT AVAILABLE [facility]ANCE B[facility] Comment:Result cannot be obt ained for this observation. Crystals UA NOT AVAILABLE [facility] B[facility] Comment:Result cannot be obt ained for this observation. Mucus UA NOT AVAILABLE [facility] INSURANCE BILL Comment:Result cannot be obt ained for this observation. Bacteria UA None seen None seen/Few [facility] INSURANCE BILL Yeast UA NOT AVAILABLE [facility] INSURANCE BILL Comment:Result cannot be obt ained for this observation. Trichomonas UA NOT AVAILABLE [facility] B[facility] Comment:Result cannot be obt ained for this observation. Comment Urine NOT AVAILABLE [facility]ANCE B[facility] Comment:Result cannot be obt ained for this observation. 01/01/2023 10:1 5 AM CERTIFIED JUVENILE PROBATION OFFICER 01/01/2023 Narrative Resulting Agency Comment [facility]: [facility] [address] [facility] [id number] Heath Pimentel MD LAB - URINALYSIS ORD ERABLES [facility] INSURANCE BILL [address] [place] [address] * (ABNORMAL) URINALYSIS W/MICROSCOPIC REFLEX TO CULTURE (01/01/2023 10:15 AM CERTIFIED JUVENILE PROBATION OFFICER) Specific [place] UA <=1.005(A) 1.005 - 1.030 [facility] INSURANCE BILL pH UA 7.5 5.0 - 7.5 [facility] INSURANCE BILL Color UA Yellow Yellow [facility] INSURANCE BILL Appearance Clear Clear [facility] INSURANCE BILL Leukocyte UA Trace(A) Negative [facility] INSURANCE BILL Protein UA Negative Negative/Tr jona [facility] INSURANCE BILL Glucose UA Negative Negative [facility] INSURANCE BILL Ketone UA Negative Negative [facility] INSURANCE BILL Occult Blood Urine Negative Negative [facility] INSURANCE BILL Bilirubin UA Negative Negative [facility] INSURANCE BILL Urobilinogen 0.2 0.2 - 1.0 mg/dL [facility] INSURANCE BILL Nitrite UA Negative Negative [facility] INSURANCE BILL Microscopic Examination Urine See below: [facility] INSURANCE BILL Comment:Microscopic was gema cated and was performed. Microscopic Examination Urine NOT AVAILABLE [facility] INSURANCE BILL Comment:Result cannot be obt ained for this observation. Urinalysis Reflex [facility] INSURANCE BILL Comment:This specimen has re flexed to a Urine Culture. Urine URINE SPECIMEN OBTAINED BY CLEAN CATCH PROCEDURE / Unknown 01/01/2023 10:15 AM CERTIFIED JUVENILE PROBATION OFFICER 01/01/2023 Narrative Resulting Agency Comment Lab Testing performed at: [facility] [address] [facility] [phone] Heath Pimentel MD LAB - URINALYSIS ORD ERABLES Performing Organization Address [facility] Co de Phone Number [facility] INSURANCE BILL [address] [place] [address] * CULTURE URINE COMPREHENSIVE (01/01/2023 10:15 AM CERTIFIED JUVENILE PROBATION OFFICER) Pathologist [facility] Urine Culture Comprehensive Final report [facility] INSURANCE BILL Result 1 [facility] INSURANCE BILL Comment: Mixed urogenital leobardo 1,000 Colonies/mL 01/01/2023 10:1 5 AM CERTIFIED JUVENILE PROBATION OFFICER 01/01/2023 Narrative Resulting Agency Comment Lab Testing performed at: [facility] [address] [place] [phone] Heath Pimentel MD LAB - MICROBIOLOGY O RDERABLES [facility] INSURANCE BILL [address] [place] [address] * (ABNORMAL) C-REACTIVE PROTEIN (01/01/2023 10:15 AM CERTIFIED JUVENILE PROBATION OFFICER) Only the most recent of2 resultswithin the time period is included. Pathologist [facility] C-Reactive Protein 12(H) 0 - 10 mg/L [facility] INSURANCE BILL Blood BLOOD SPECIMEN / Unknown 01/01/2023 10:15 AM CERTIFIED JUVENILE PROBATION OFFICER 01/01/2023 Narrative Resulting Agency Comment Lab Testing performed at: [employer] [place] [address] [facility] [phone] Heath Pimentel MD LAB - CHEMISTRY MIKE WEIR [facility] INSURANCE BILL [address] [place] [address] * ERYTHROCYTE SEDIMENTATION RATE (01/01/2023 10:15 AM CERTIFIED JUVENILE PROBATION OFFICER) Only the most recent of2 resultswithin the time period is included. Erythrocyte Sedimentation Rate Westergren 21 0 - 40 mm/hr [facility] INSURANCE BILL Blood BLOOD SPECIMEN / Unknown 01/01/2023 10:15 AM CERTIFIED JUVENILE PROBATION OFFICER 01/01/2023 Narrative Resulting Agency Comment Lab Testing performed at: [facility] [place] [address] [facility] [phone] Heath Pimentel MD LAB - HEMATOLOGY DEANDRA FUENTES Performing Organization Address City/[facility]/ZIP Co de Phone Number [facility] INSURANCE BILL [address] [place] [address] * CBC WITH DIFFERENTIAL (01/01/2023 10:15 AM CERTIFIED JUVENILE PROBATION OFFICER) Only the most recent of2 resultswithin the time period is included. WBC 7.5 3.4 - 10.8 x10E3/uL [facility] INSURANCE BILL RBC 5.02 3.77 - 5.28 x10E6/uL [facility] INSURANCE BILL Hemoglobin 14.0 11.1 - 15.9 g/dL [facility] INSURANCE BILL Hematocrit 41.9 34.0 - 46.6 % [facility] INSURANCE BILL MCV 84 79 - 97 fL [facility] INSURANCE BILL MCH 27.9 26.6 - 33.0 pg [facility] INSURANCE BILL MCHC 33.4 31.5 - 35.7 g/dL [facility] INSURANCE BILL RDW 13.7 11.7 - 15.4 % [facility] INSURANCE BILL Platelet Count 301 150 - 450 x10E3/uL [facility] INSURANCE BILL Granulocytes % 57 Not Estab. % [facility] INSURANCE BILL Lymphocytes % 34 Not Estab. % [facility]URANCE BILL Monocytes % 7 Not Estab. % [facility] INSURANCE BILL Eosinophils % 1 Not Estab. % [facility] INSURANCE BILL Basophils % 1 Not Estab. % [facility] INSURANCE BILL Immature Cells NOT AVAILABLE [facility] INS[facility]ANCE BILL Comment:Result cannot be obt ained for this observation. Granulocytes Absolute 4.3 1.4 - 7.0 x10E3/uL [facility] INSURANCE BILL Lymphocytes Absolute 2.5 0.7 - 3.1 x10E3/uL [facility] INSURANCE BILL Monocytes Absolute 0.5 0.1 - 0.9 x10E3/uL [facility] INSURANCE BILL Eosinophils Absolute 0.1 0.0 - 0.4 x10E3/uL [facility] INSURANCE BILL Basophils Absolute 0.1 0.0 - 0.2 x10E3/uL [facility] INSURANCE BILL Immature Granulocytes 0 Not Estab. % [facility] INSURANCE BILL Immature Granulocytes Absolute 0.0 0.0 - 0.1 x10E3/uL [facility] INSURANCE BILL nRBC NOT AVAILABLE [facility] INSURANCE BILL Comment:Result cannot be obt ained for this observation. Comment Hematology NOT AVAILABLE [facility] INSURANCE BILL Comment:Result cannot be obt ained for this observation. Blood BLOOD SPECIMEN / Unknown 01/01/2023 10:15 AM CERTIFIED JUVENILE PROBATION OFFICER 01/01/2023 Narrative Resulting Agency Comment [facility]: [facility] [address] [facility] [phone] Heath Pimentel MD LAB - HEMATOLOGY ORD ERABLES [facility] INSURANCE BILL [address] [place] [address] * (ABNORMAL) COMPREHENSIVE METABOLIC PANEL (01/01/2023 10:15 AM CERTIFIED JUVENILE PROBATION OFFICER) Only the most recent of2 resultswithin the time period is included. Glucose 89 70 - 99 mg/dL [facility] [...] BLOOD SPECIMEN / Unknown 01/01/2023 10:15 AM CERTIFIED JUVENILE PROBATION OFFICER 01/01/2023 Narrative Resulting Agency Comment Lab Testing performed at: [facility] [place] [id number] [facility] [phone] Heath Pimentel MD LAB - CHEMISTRY MIKE WEIR [facility] INSURANCE BILL [address] [place] [address] * Complete PFT [facility] PFT Lab (10/30/2022 11:41 AM CERTIFIED JUVENILE PROBATION OFFICER) Impressions Dionisio Rios MD - 10/30/2022 11:41 AM CERTIFIED JUVENILE PROBATION OFFICER [facility] DEPARTMENT OF PULMONARY, CRITICAL CARE, AND SLEEP MEDICINE PULMONARY FUNCTION TEST Please see technologist's comments mentioned in the report. INTERPRETATION: SPIROMETRY: FVC: normal FEV1: normal FEV1/FVC ratio is normal. BRONCHODILATOR RESPONSE: There is no significant response to bronchodilator therapy however does not mean the patient wont benefit from bronchodilator therapy FLOW-VOLUME LOOPS: Normal flow-volume loops LUNG VOLUMES: Lung volumes by body plethysmography demonstrated mildly increased residual volume DLCO: Unadjusted for Hb and COHb is normal DLCO: Corrected for Hb and COHb is: not able to perform AIRWAY RESISTANCE: The airway resistance is normal and the specific conductance is normal ARTERIAL BLOOD GAS ANALYSIS: Not performed IMPRESSION: 1. Normal spirometry 2. Mild air trapping 3. No significant bronchodilator response, however this does not preclude the use of bronchodilators 4. Normal uncorrected diffusion capacity 5. There is no previous study available for comparison Dino Villarreal D.O. Pulmonary Disease & Critical Care Fellow [facility] Pager: [phone] I have personally reviewed the fellow's interpretation of the test and made any necessary changes when needed. Dionisio Rios MD Special Effects Technician of Internal Medicine Division of Pulmonary, Critical Care and Sleep Medicine [facility] Pager: [phone] Narrative Dionisio Rios MD - 10/30/2022 11:41 AM CERTIFIED JUVENILE PROBATION OFFICER Dino Villarreal DO 10/30/2022 2:32 PM Heath Pimentel MD RESPIRATORY THERAPY ORDERABLES * ECHO COMPLETE (10/30/2022 10:18 AM CERTIFIED JUVENILE PROBATION OFFICER) Anatomical Region Laterality Modality Chest Echo 10/30/2022 9:52 AM CERTIFIED JUVENILE PROBATION OFFICER Narrative Procedure Note Rehana Feliciano MD - 10/31/2022 Heath Pimentel MD ECHOCARDIOGRAPHY RAD IANT * JIMENEZ (SM)+TUBING OILER ANTIBODY PANEL (09/11/2022 10:08 AM CDT) SM Antibody <1.0 NEG <1.0 NEG AI [facility] SM/TUBING OILER Antibody <1.0 NEG <1.0 NEG AI [facility] Comment: Test Performed at: [facility] [employer] [address] [address] [place] [address] CLAUDE RAGLAND DO,MPH Blood BLOOD SPECIMEN / Unknown 09/11/2022 10:08 AM CDT 09/11/2022 10:09 AM CDT Heath Pimentel MD LAB - SEROLOGY ORDER KWADWO [facility] [address] [place] [address] * CENTROMERE B ANTIBODIES (09/11/2022 10:08 AM CDT) Only the most recent of2 resultswithin the time period is included. Centromere B Antibody <1.0 NEG <1.0 NEG AI [facility] Comment: Test Performed at: [employer] [place] [address] [place] [address] CLAUDE RAGLAND DO,MPH Blood BLOOD SPECIMEN / Unknown 09/11/2022 10:08 AM CDT 09/11/2022 10:09 AM CDT Heath Pimentel MD LAB - SEROLOGY ORDER KWADWO Performing Organization Address [facility] Co de Phone Number [facility] [address] [place] [address] * RNA POLYMERASE III ANTIBODY IGG (09/11/2022 10:08 AM CDT) Only the most recent of2 resultswithin the time period is included. RNA Polymerase 3 Antibody <20 <20 Units [facility] Comment: REPORT COMMENT: FASTING:NO Test Performed at: [facility] [employer]/[facility] [address] [place] [address] KALIN CARRION MD,PHD,JENNIFFER Blood BLOOD SPECIMEN / Unknown 09/11/2022 10:08 AM CDT 09/11/2022 10:09 AM CDT Heath Pimentel MD LAB - SEROLOGY ORDER KWADWO Performing Organization Address [facility] Co de Phone Number [facility] [address] [place] [address] * (ABNORMAL) SCLERODERMA 70 (SCL) ANTIBODY (09/11/2022 10:08 AM CDT) SCL-70 Antibody 3.3 POS(A) <1.0 NEG AI [facility] Comment: Test Performed at: [employer] [place] [address] [employer] [place], [place] [address] CLAUDE RAGLAND DO,MPH Blood BLOOD SPECIMEN / Unknown 09/11/2022 10:08 AM CDT 09/11/2022 10:09 AM CDT Heath Pimentel MD LAB - CHEMISTRY MIKE WEIR Performing Organization Address [facility] Co de Phone Number [facility] [address] [place] [address] * (ABNORMAL) URINALYSIS W/MICROSCOPIC NO CULTURE (08/07/2022 6:59 AM CDT) Color UA YELLOW YELLOW [facility] Appearance CLEAR CLEAR [facility] Specific [place] UA 1.005 1.001 - 1.035 [facility] pH UA 8.0 5.0 - 8.0 [facility] Glucose UA NEGATIVE NEGATIVE [facility] Bilirubin UA NEGATIVE NEGATIVE [facility] Ketone UA NEGATIVE NEGATIVE [facility] Blood UA NEGATIVE NEGATIVE [facility] Protein UA NEGATIVE NEGATIVE [facility] Nitrite UA NEGATIVE NEGATIVE [facility] Leukocyte UA 1+(A) NEGATIVE [facility] WBC UA NONE SEEN < OR = 5 /HPF [facility] RBC UA NONE SEEN < OR = 2 /HPF [facility] Epithelial Cell UA 0-5 < OR = 5 /HPF [facility] Transitional Epithelial Cells [facility] Renal Epithelial Cells [facility] Bacteria UA NONE SEEN NONE SEEN /HPF [facility] Calcium Oxalate Crystals [facility] Triple Phosphate Crystals [facility] Uric Acid Crystals [facility] Amorphous UA [facility] Crystals UA [facility] Hyaline Casts NONE SEEN NONE SEEN /LPF [facility] Comment: Test Performed at: [employer] [facility] [place] [address] CLAUDE RAGLAND DO,MPH Granular Casts [facility] Casts UA [facility] Yeast [facility] Comments [facility] Note [facility] Comment: Test Performed at: [place] [address] CLAUDE RAGLAND DO,MPH Urine URINE SPECIMEN OBTAINED BY CLEAN CATCH PROCEDURE / Unknown 08/07/2022 6:59 AM CDT 08/07/2022 7:03 AM CDT Heath Pimentel MD LAB - URINALYSIS ORD ERABLES [facility] [address] [place] [address] * (ABNORMAL) GUS PANEL COMPREHENSIVE (08/07/2022 6:59 AM CDT) GUS Screen NEGATIVE NEGATIVE [facility] Comment: GUS IFA is a first line screen for detecting the presence of up to approximately 150 autoantibodies in various autoimmune diseases. A negative UGS IFA result suggests an GUS-associated autoimmune disease is not present at this time, but is not definitive. If there is high clinical suspicion for Sjogren's syndrome, testing for anti-SS-A/Ro antibody should be considered. Anti-Anna-1 antibody should be considered for clinically suspected inflammatory myopathies. AC-0: Negative International Consensus on GUS Patterns (https://doi.org/10.1515/gujp-8288-0438) For additional information, please refer to http://Azubu.REPUBLIC RESOURCES/faq/THC830 (This link is being provided for informational/ educational purposes only.) REPORT COMMENT: FASTING:YES Test Performed at: [employer] [address] [facility] [place] [address] CLAUDE RAGLAND DO,MPH dsDNA Antibody 1 IU/mL [facility] Comment: IU/mL Interpretation < or = 4 Negative 5-9 Indeterminate > or = 10 Positive SCL-70 Antibody 3.2 POS(A) <1.0 NEG AI [facility] SM Antibody <1.0 NEG <1.0 NEG AI [facility] SM/TUBING OILER Antibody <1.0 NEG <1.0 NEG AI [facility] Sjogren's Antibodies (SSA) <1.0 NEG <1.0 NEG AI [facility] Sjogren's Antibodies (SSB) <1.0 NEG <1.0 NEG AI [facility] Comment: Test Performed at: [employer] [facility] [place] [address] CLAUDE RAGLAND DO,MPH Blood BLOOD SPECIMEN / Unknown 08/07/2022 6:59 AM CDT 08/07/2022 7:03 AM CDT Heath Pimentel MD LAB - SEROLOGY ORDER KWADWO [facility] [address] [place] [address] * VITAMIN D 25-HYDROXY (08/07/2022 6:59 AM CDT) Vitamin D, 25 Hydroxy 46 30 - 100 ng/mL [facility] Comment: Vitamin D Status 25-OH Vitamin D: Deficiency: <20 ng/mL Insufficiency: 20 - 29 ng/mL Optimal: > or = 30 ng/mL For 25-OH Vitamin D testing on patients on D2-supplementation and patients for whom quantitation of D2 and D3 fractions is required, the QuestAssureD(TM) 25-OH VIT D, (D2,D3), LC/MS/MS is recommended: order code 30319 (patients >2yrs). See Note 1 Note 1 For additional information, please refer to http://education.REPUBLIC RESOURCES/faq/JPD799 (This link is being provided for informational/ educational purposes only.) Test Performed at: [place] [address] CLAUDE RAGLAND DO,MPH Blood BLOOD SPECIMEN / Unknown 08/07/2022 6:59 AM CDT 08/07/2022 7:03 AM CDT Heath Pimentel MD LAB - CHEMISTRY MIKE WEIR Performing Organization Address [facility] [place] [address] * ALDOLASE (08/07/2022 6:59 AM CDT) [facility] Aldolase 4.6 < OR = 8.1 U/L [facility] Comment: REPORT COMMENT: FASTING:YES Test Performed at: [place] [address] CLAUDE RAGLAND DO,MPH Blood BLOOD SPECIMEN / Unknown 08/07/2022 6:59 AM CDT 08/07/2022 7:03 AM CDT Heath Pimentel MD LAB - CHEMISTRY MIKE WEIR Performing Organization Address [facility] Co de Phone Number [facility] [phone] [place] [address] * LDH BLOOD (08/07/2022 6:59 AM CDT) Pathologist [facility] LD-Total 163 120 - 250 U/L [facility] Comment: Test Performed at: [place] [address] CLAUDE RAGLAND DO,MPH Blood BLOOD SPECIMEN / Unknown 08/07/2022 6:59 AM CDT 08/07/2022 7:03 AM CDT Heath Pimentel MD LAB - CHEMISTRY MIKE WEIR Performing Organization Address [facility] Co de Phone Number [facility] [phone] [place] [address] * CK BLOOD (08/07/2022 6:59 AM CDT) CK 56 29 - 143 U/L [facility] Comment: Test Performed at: [employer] [facility] [address] [place] [address] CLAUDE RAGLAND DO,MPH Blood BLOOD SPECIMEN / Unknown 08/07/2022 6:59 AM CDT 08/07/2022 7:03 AM CDT Heath Pimentel MD LAB - CHEMISTRY MIKE WEIR [facility] Organization Address City/State/ZIP Co de Phone Number [facility] [address] [place] [address] * IMAGING RADIOLOGY XRAY RESULTS ORDER (08/07/2022) Anatomical Region Laterality Modality Other 08/07/2022 Narrative 08/07/2022 Ordered by an unspecified provider. Scanned Document IMAGING * XR LUMBAR SPINE 1VW (07/31/2022 12:40 PM CDT) Anatomical Region Laterality Modality Spine Radiographic Esha ging 07/31/2022 2:10 PM CDT Impressions 07/31/2022 2:42 PM CDT IMPRESSION: No acute fracture or malalignment identified. Mild lumbar spondylosis with disc space narrowing at L5-S1. Report dictated by Eliecer Lawson MD, MD (radiology tech). I, Addison Acevedo MD have personally reviewed and interpreted this examination/study. > Interpreting Provider: Addison Acevedo MD on 07/31/2022 2:42 PM Narrative 07/31/2022 2:42 PM CDT PROCEDURE: XR LUMBAR SPINE 1VW, DATE/TIME OF EXAM: 07/31/2022 12:42 PM, LOCATION [facility] INDICATION: R76.8: Scl-70 antibody positive M25.541: Arthralgia of both hands M25.542: Arthralgia of both hands M25.571: Pain in joints of both feet M25.572: Pain in joints of both feet ADDITIONAL CLINICAL INFORMATION: Ordering Provider Reason For Exam: Please evaluate for signs of inflammatory arthropathy. Technologist Note: pt. Had barium study 07/30. Contrast still present. Only sending lateral and changed order to 1 vw. COMPARISON: None. FINDINGS: The vertebral bodies are normally aligned. There is no fracture or compression deformity. There is intervertebral disc space narrowing present at L5-S1. There are marginal vertebral body osteophytes present at the superior endplates of L3 and L4. There is mild facet joint arthropathy at all lumbar spine levels. Bone density and texture are normal. Enteric contrast is visualized within the abdomen and pelvis. Procedure Note Addison Acevedo MD - 07/31/2022 PROCEDURE: XR LUMBAR SPINE 1VW, DATE/TIME OF EXAM: 07/31/2022 12:42 PM, LOCATION [facility] INDICATION: R76.8: Scl-70 antibody positive M25.541: Arthralgia of both hands M25.542: Arthralgia of both hands M25.571: Pain in joints of both feet M25.572: Pain in joints of both feet ADDITIONAL CLINICAL INFORMATION: Ordering Provider Reason For Exam: Please evaluate for signs of inflammatory arthropathy. Technologist Note: pt. Had barium study 07/30. Contrast still present. Only sending lateral and changed order to 1 vw. COMPARISON: None. FINDINGS: The vertebral bodies are normally aligned. There is no fracture or compression deformity. There is intervertebral disc space narrowingpresent at L5-S1. There are marginal vertebral body osteophytes present at the superior endplates of L3 and L4. There is mild facet joint arthropathyat all lumbar spine levels. Bone density and texture are normal. Enteric contrast is visualized within the abdomen and pelvis. IMPRESSION: No acute fracture or malalignment identified. Mild lumbar spondylosiswith disc space narrowing at L5-S1. Report dictated by Eliecer Lawson MD, MD (radiology tech). I, Addison Acevedo MD have personally reviewed and interpreted this examination/study. 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 2.Suggestion of small erosions of the right scaphoid distal pole. 3.No substantial degenerative changes in the bilateral feet. > Interpreting Provider: FREEDOM POTTER MD on 07/31/2022 1:18 PM Narrative 07/31/2022 1:18 PM CDT EXAMINATION: XR HAND RIGHT 3VW OR MORE, XR FOOT LEFT 3VW OR MORE, XR HAND LEFT 3VW OR MORE, XR FOOT RIGHT 3VW OR MORE HISTORY: R76.8: Scl-70 antibody positive M25.541: Arthralgia of both hands M25.542: Arthralgia of both hands M25.571: Pain in joints of both feet M25.572: Pain in joints of both feet COMPARISON: No prior study is available for comparison. FINDINGS: Right hand: No acute fracture or dislocation is identified. Mild asymmetric joint space narrowing is noted at the DIPs, most significant at the second distal interphalangeal joint with small osteophyte formation. Similar, to lesser degree, joint space narrowing is seen at the MIPs. Small erosions are noted at the distal lateral pole of the scaphoid. The soft tissues are normal Left hand: No acute fracture or dislocation is identified. There is severe asymmetric joint space narrowing at the second digit distal phalanx with osteophyte formation. Joint space narrowing at the remaining DIPs to a lesser extent is noted. No osseous production is noted. No substantial erosions are identified. The soft tissues are normal. Right foot: No acute fracture or dislocation is identified. No substantial degenerative changes are noted. No erosions are noted. No osseous production is seen. The soft tissues are normal Left foot: No acute fracture or dislocation is identified. No substantial degenerative changes are noted. No erosions are noted. No osseous production is seen. The soft tissues are normal Procedure Note Freedom Potter MD - 07/31/2022 EXAMINATION: XR HAND RIGHT 3VW OR MORE, XR FOOT LEFT 3VW OR MORE, XRHAND LEFT 3VW OR MORE, XR FOOT RIGHT 3VW OR MORE HISTORY: R76.8: Scl-70 antibody positive M25.541: Arthralgia of both hands M25.542: Arthralgia of both hands M25.571: Pain in joints of both feet M25.572: Pain in joints of both feet COMPARISON: No prior study is available for comparison. FINDINGS: Right hand: No acute fracture or dislocation is identified. Mild asymmetric jointspace narrowing is noted at the DIPs, most significant at the second distal interphalangeal joint with small osteophyte formation. Similar, tolesser degree, joint space narrowing is seen at the MIPs. Small erosions arenoted at the distal lateral pole of the scaphoid. The soft tissues are normal Left hand: No acute fracture or dislocation is identified. There is severeasymmetric joint space narrowing at the second digit distal phalanx with osteophyte formation. Joint space narrowing at the remaining DIPs to a lesserextent is noted. No osseous production is noted. No substantial erosions are identified. The soft tissues are normal. Right foot: No acute fracture or dislocation is identified. No substantialdegenerative changes are noted. No erosions are noted. No osseous production is seen. The soft tissues are normal Left foot: No acute fracture or dislocation is identified. No substantialdegenerative changes are noted. No erosions are noted. No osseous production is seen. 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 2.Suggestion of small erosions of the right scaphoid distal pole. 3.No substantial degenerative changes in the bilateral feet. 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 2.Suggestion of small erosions of the right scaphoid distal pole. 3.No substantial degenerative changes in the bilateral feet. > Interpreting Provider: FREEDOM POTTER MD on 07/31/2022 1:18 PM Narrative 07/31/2022 1:18 PM CDT EXAMINATION: XR HAND RIGHT 3VW OR MORE, XR FOOT LEFT 3VW OR MORE, XR HAND LEFT 3VW OR MORE, XR FOOT RIGHT 3VW OR MORE HISTORY: R76.8: Scl-70 antibody positive M25.541: Arthralgia of both hands M25.542: Arthralgia of both hands M25.571: Pain in joints of both feet M25.572: Pain in joints of both feet COMPARISON: No prior study is available for comparison. FINDINGS: Right hand: No acute fracture or dislocation is identified. Mild asymmetric joint space narrowing is noted at the DIPs, most significant at the second distal interphalangeal joint with small osteophyte formation. Similar, to lesser degree, joint space narrowing is seen at the MIPs. Small erosions are noted at the distal lateral pole of the scaphoid. The soft tissues are normal Left hand: No acute fracture or dislocation is identified. There is severe asymmetric joint space narrowing at the second digit distal phalanx with osteophyte formation. Joint space narrowing at the remaining DIPs to a lesser extent is noted. No osseous production is noted. No substantial erosions are identified. The soft tissues are normal. Right foot: No acute fracture or dislocation is identified. No substantial degenerative changes are noted. No erosions are noted. No osseous production is seen. The soft tissues are normal Left foot: No acute fracture or dislocation is identified. No substantial degenerative changes are noted. No erosions are noted. No osseous production is seen. The soft tissues are normal Procedure Note Freedom Potter MD - 07/31/2022 EXAMINATION: XR HAND RIGHT 3VW OR MORE, XR FOOT LEFT 3VW OR MORE, XRHAND LEFT 3VW OR MORE, XR FOOT RIGHT 3VW OR MORE HISTORY: R76.8: Scl-70 antibody positive M25.541: Arthralgia of both hands M25.542: Arthralgia of both hands M25.571: Pain in joints of both feet M25.572: Pain in joints of both feet COMPARISON: No prior study is available for comparison. FINDINGS: Right hand: No acute fracture or dislocation is identified. Mild asymmetric jointspace narrowing is noted at the DIPs, most significant at the second distal interphalangeal joint with small osteophyte formation. Similar, tolesser degree, joint space narrowing is seen at the MIPs. Small erosions arenoted at the distal lateral pole of the scaphoid. The soft tissues are normal Left hand: No acute fracture or dislocation is identified. There is severeasymmetric joint space narrowing at the second digit distal phalanx with osteophyte formation. Joint space narrowing at the remaining DIPs to a lesserextent is noted. No osseous production is noted. No substantial erosions are identified. The soft tissues are normal. Right foot: No acute fracture or dislocation is identified. No substantialdegenerative changes are noted. No erosions are noted. No osseous production is seen. The soft tissues are normal Left foot: No acute fracture or dislocation is identified. No substantialdegenerative changes are noted. No erosions are noted. No osseous production is seen. 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 2.Suggestion of small erosions of the right scaphoid distal pole. 3.No substantial degenerative changes in the bilateral feet. 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 2.Suggestion of small erosions of the right scaphoid distal pole. 3.No substantial degenerative changes in the bilateral feet. > Interpreting Provider: FREEDOM POTTER MD on 07/31/2022 1:18 PM Narrative 07/31/2022 1:18 PM CDT EXAMINATION: XR HAND RIGHT 3VW OR MORE, XR FOOT LEFT 3VW OR MORE, XR HAND LEFT 3VW OR MORE, XR FOOT RIGHT 3VW OR MORE HISTORY: R76.8: Scl-70 antibody positive M25.541: Arthralgia of both hands M25.542: Arthralgia of both hands M25.571: Pain in joints of both feet M25.572: Pain in joints of both feet COMPARISON: No prior study is available for comparison. FINDINGS: Right hand: No acute fracture or dislocation is identified. Mild asymmetric joint space narrowing is noted at the DIPs, most significant at the second distal interphalangeal joint with small osteophyte formation. Similar, to lesser degree, joint space narrowing is seen at the MIPs. Small erosions are noted at the distal lateral pole of the scaphoid. The soft tissues are normal Left hand: No acute fracture or dislocation is identified. There is severe asymmetric joint space narrowing at the second digit distal phalanx with osteophyte formation. Joint space narrowing at the remaining DIPs to a lesser extent is noted. No osseous production is noted. No substantial erosions are identified. The soft tissues are normal. Right foot: No acute fracture or dislocation is identified. No substantial degenerative changes are noted. No erosions are noted. No osseous production is seen. The soft tissues are normal Left foot: No acute fracture or dislocation is identified. No substantial degenerative changes are noted. No erosions are noted. No osseous production is seen. The soft tissues are normal Procedure Note Freedom Potter MD - 07/31/2022 EXAMINATION: XR HAND RIGHT 3VW OR MORE, XR FOOT LEFT 3VW OR MORE, XRHAND LEFT 3VW OR MORE, XR FOOT RIGHT 3VW OR MORE HISTORY: R76.8: Scl-70 antibody positive M25.541: Arthralgia of both hands M25.542: Arthralgia of both hands M25.571: Pain in joints of both feet M25.572: Pain in joints of both feet COMPARISON: No prior study is available for comparison. FINDINGS: Right hand: No acute fracture or dislocation is identified. Mild asymmetric jointspace narrowing is noted at the DIPs, most significant at the second distal interphalangeal joint with small osteophyte formation. Similar, tolesser degree, joint space narrowing is seen at the MIPs. Small erosions arenoted at the distal lateral pole of the scaphoid. The soft tissues are normal Left hand: No acute fracture or dislocation is identified. There is severeasymmetric joint space narrowing at the second digit distal phalanx with osteophyte formation. Joint space narrowing at the remaining DIPs to a lesserextent is noted. No osseous production is noted. No substantial erosions are identified. The soft tissues are normal. Right foot: No acute fracture or dislocation is identified. No substantialdegenerative changes are noted. No erosions are noted. No osseous production is seen. The soft tissues are normal Left foot: No acute fracture or dislocation is identified. No substantialdegenerative changes are noted. No erosions are noted. No osseous production is seen. 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 2.Suggestion of small erosions of the right scaphoid distal pole. 3.No substantial degenerative changes in the bilateral feet. 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 2.Suggestion of small erosions of the right scaphoid distal pole. 3.No substantial degenerative changes in the bilateral feet. > Interpreting Provider: FREEDOM POTTER MD on 07/31/2022 1:18 PM Narrative 07/31/2022 1:18 PM CDT EXAMINATION: XR HAND RIGHT 3VW OR MORE, XR FOOT LEFT 3VW OR MORE, XR HAND LEFT 3VW OR MORE, XR FOOT RIGHT 3VW OR MORE HISTORY: R76.8: Scl-70 antibody positive M25.541: Arthralgia of both hands M25.542: Arthralgia of both hands M25.571: Pain in joints of both feet M25.572: Pain in joints of both feet COMPARISON: No prior study is available for comparison. FINDINGS: Right hand: No acute fracture or dislocation is identified. Mild asymmetric joint space narrowing is noted at the DIPs, most significant at the second distal interphalangeal joint with small osteophyte formation. Similar, to lesser degree, joint space narrowing is seen at the MIPs. Small erosions are noted at the distal lateral pole of the scaphoid. The soft tissues are normal Left hand: No acute fracture or dislocation is identified. There is severe asymmetric joint space narrowing at the second digit distal phalanx with osteophyte formation. Joint space narrowing at the remaining DIPs to a lesser extent is noted. No osseous production is noted. No substantial erosions are identified. The soft tissues are normal. Right foot: No acute fracture or dislocation is identified. No substantial degenerative changes are noted. No erosions are noted. No osseous production is seen. The soft tissues are normal Left foot: No acute fracture or dislocation is identified. No substantial degenerative changes are noted. No erosions are noted. No osseous production is seen. The soft tissues are normal Procedure Note Freedom Potter MD - 07/31/2022 EXAMINATION: XR HAND RIGHT 3VW OR MORE, XR FOOT LEFT 3VW OR MORE, XRHAND LEFT 3VW OR MORE, XR FOOT RIGHT 3VW OR MORE HISTORY: R76.8: Scl-70 antibody positive M25.541: Arthralgia of both hands M25.542: Arthralgia of both hands M25.571: Pain in joints of both feet M25.572: Pain in joints of both feet COMPARISON: No prior study is available for comparison. FINDINGS: Right hand: No acute fracture or dislocation is identified. Mild asymmetric jointspace narrowing is noted at the DIPs, most significant at the second distal interphalangeal joint with small osteophyte formation. Similar, tolesser degree, joint space narrowing is seen at the MIPs. Small erosions arenoted at the distal lateral pole of the scaphoid. The soft tissues are normal Left hand: No acute fracture or dislocation is identified. There is severeasymmetric joint space narrowing at the second digit distal phalanx with osteophyte formation. Joint space narrowing at the remaining DIPs to a lesserextent is noted. No osseous production is noted. No substantial erosions are identified. The soft tissues are normal. Right foot: No acute fracture or dislocation is identified. No substantialdegenerative changes are noted. No erosions are noted. No osseous production is seen. The soft tissues are normal Left foot: No acute fracture or dislocation is identified. No substantialdegenerative changes are noted. No erosions are noted. No osseous production is seen. 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 2.Suggestion of small erosions of the right scaphoid distal pole. 3.No substantial degenerative changes in the bilateral feet. > Interpreting Provider: FREEDOM POTTER MD on 07/31/2022 1:18 PM Heath Pimentel MD DIAGNOSTIC IMAGING [facility] Care Teams Clinical Safety Specialist Relationship Specialty Start Date End Date Kathy Saeed PA [address] [place] [id number] PCP - General 03/28/22
--- OUTSIDE RECORDS SUMMARY | 2025-01-13 07:29 | XMS_ITS | Clinical Summary ---
Author Organization [facility] Address [address] [place] [address] Care Team Providers Care Field Crop Farmworker Name Role Phone Kathy Saeed Primary Care Pr ovider Source Comments [facility],non-owned Affiliates and Associated Physician Practices is amultiple site organization consisting of ambulatory clinics and hospital sitesin [place], [place], [place] and [place]. This disclosure is being madepursuant to the Care Everywhere program and may not contain all information available regarding this patient. Last updated 18.[facility] [employer] Allergies Active Allergy Reactions Criticality Noted Date [...] at bedtime 12/15/2022 Active Cholecalciferol 50 MCG (1999 [place]) Take 1 (one) tablet by mouth [...] 98.9 kg (218 lb) 12/15/2022 1:13 PM SOCIAL INSURANCE SPECIALIST Height 162.6 cm (5' 4 ) 12/15/2022 1:13 PM SOCIAL INSURANCE SPECIALIST Body Mass Index 37.42 12/15/2022 1:13 PM SOCIAL INSURANCE SPECIALIST Plan of Treatment Health Maintenance Due Date Last Done Comments COLOGUARD (AGES 45-75) - COL ON CA SCREENING 1962 COLON MONITORING 1962 COLONOSCOPY - COLON CA SCREENING 1962 CT COLONOGRAPHY - COLON CA SCREENING 1962 Colorectal Cancer Screening 1962 FIT - COLON CA SCREENING 1962 FLEX SIG - COLON CA SCREENING 1962 LIPID TESTING 1962 MAMMOGRAM 1962 PAP SMEAR 1962 HIV SCREENING 1977 HEPATITIS C SCREENING 04/11/1980 DTAP/TDAP/TD VACCINES (1 - Tdap) 1981 PNEUMOCOCCAL VACCINE 50+ (1 of 1 - PCV) 2012 ZOSTER VACCINE (1 of 2) 2012 COVID-19 VACCINE (4 - 2023-2 5 season) 2024 09/18/2021, 01/25/2021, 01/04/2021 INFLUENZA VACCINE (#1) 2024 2, 11/23/2016, 08/18/2016 DEPRESSION SCREENING 11/23/2024 07/31/2022 SCREENING FOR DIABETES 01/01/2026 3, 08/07/2022 Respiratory Syncytial Virus (RSV) Vaccine Pt: or over 60 yrs (1 - 1-dose 75+ series) 2037 HEPATITIS B VACCINE Aged Out No longe r eligible based on patient's age to complete this topic HIB VACCINE Aged Out No longer eligi ble based on patient's age to complete this topic HPV VACCINE Aged Out No longer eligi ble based on patient's age to complete this topic MENINGOCOCCAL (Group B) VACCINE Aged Out No longer eligible b ased on patient's age to complete this topic MENINGOCOCCAL VACCINE Aged Out No bridget pineda eligible based on patient's age to complete this topic PNEUMOCOCCAL VACCINE Aged Out No long er eligible based on patient's age to complete this topic Procedures Procedure Name Priority Date/Time Associated Diagnosis Comments COMPREHENSIVE METABOLIC PANEL Routine 01/01/2023 10:15 AM SOCIAL INSURANCE SPECIALIST Scl-70 antibody positive Arthralgia of both hands from Last 3 Months or Most Recently Relevant to Health Maintenance Results * (ABNORMAL) COMPREHENSIVE METABOLIC PANEL (01/01/2023 10:15 AM SOCIAL INSURANCE SPECIALIST) Glucose 89 70 - 99 mg/dL [facility] [...] BLOOD SPECIMEN / Unknown 01/01/2023 10:15 AM SOCIAL INSURANCE SPECIALIST 01/01/2023 Narrative Resulting Agency Comment Lab Testing performed at: [facility] [place] [address] [facility] [id number] Heath Pimentel MD LAB - CHEMISTRY MIKE [place]IR [facility] INSURANCE BILL [address] [place] [address] from Last 3 Months or Most Recently Relevant to Health Maintenance Care Teams Field Crop Farmworker Relationship Specialty Start Date End Date Kathy Saeed PA [address] [place] [address] PCP - General 03/28/22
--- OUTSIDE RECORDS SUMMARY | 2025-01-13 07:29 | XMS_ITS | Encounter Summary ---
Author Organization [facility] [facility] Address [address] [place] [address] Phone Care Team Providers Care General Maintenance Technician Name Role Phone David Nicholson MD Primary Care Provid er Encounter Details Date Type Department Care Team (Latest Contact Info) Description 08/22/2024 Orders Only [facility] Scanning, Provider Social History Tobacco Use Types Packs/Day Years [...] on file Legal Sex Female 1:36 AM SEXER Gender Identity Not on file Sexual Orientation Not on file documented as of this encounter Plan of Treatment Upcoming Encounters Date Type Department Care Team (Latest Contact Info) Description 03/09/2025 7:30 AM CDT Hospital Encounter [facility] Operating Room [address] [facility] [place] [address] Martha Akins MD [address] DEPT OPHTHALMOLOGY, [facility] [address] [place] [address] 03/09/2025 7:30 AM CDT - 03/09/2025 8:20 AM CDT Surgery [facility] Operating Room [address] [facility] [place] [address] Martha Akins MD [address] DEPT OPHTHALMOLOGY, [facility] [address] [place] [address] EXTRACTION CATARACT - PHACOEMULSIFICATION AND LENS IMPLANT Scheduled Procedures Name Priority Associated Diagnoses Date/Ti me EXTRACTION CATARACT - PHACOEMULSIFICATION AND LENS IMPLANT 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 03/09/2025 7:30 AM CDT GONIOTOMY 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 03/09/2025 7:30 AM CDT documented as of this encounter Procedures Procedure Name Priority Date/Time Associated Diagnosis Comments SCAN - RADIOLOGY/IMAGING 08/22/2024 documented in this encounter Results * SCAN - RADIOLOGY/IMAGING (08/22/2024) Anatomical Region Laterality Modality Other us Provider Scanning Final Result documented in this encounter Visit Diagnoses Not on filedocumented in this encounter Care Teams General Maintenance Technician Relationship Specialty Start Date End Date David Nicholson MD [address] [place] [address] PCP - General Internal Medicine 07/19/24 documented as of this encounter
--- OUTSIDE RECORDS SUMMARY | 2025-01-13 07:29 | XMS_ITS | Referral Summary ---
Author Organization [facility] Address [address] [place] [address] Care Team Providers Care Yard Hostler Name Role Phone David Nicholson MD Primary Care Provid er Encounters Date Type Department Care Team Description 12/14/[address] [facility] Ophthalmology [address] [facility] [address] Sherri Villareal COA from Last 3 Months Allergies Active Allergy Reactions Criticality Noted Date [...] pt Assessment & Plan (12/15/2022 10:05 PM EMAIL DEVELOPER): Hx of Tmax low to mid-20s per [...] pt Assessment & Plan (10/13/2022 3:10 PM EMAIL DEVELOPER): Educated and reassured patient of findings Borderline, [...] Anatomical narrow angle glaucoma, bilateral 10/13/2022 10/13/2022 Immunizations Immunization Administration Dates Next Due Influenza, Quadrivalent, Jennyfer l Culture-based MDCK, Preservative Free, Antibiotic Free, Intramuscular 07/30/2023,08/23/2021 Influenza, Quadrivalent, Spl it, Preservative Free, Intramuscular 08/24/2022,08/03/2020,08/17/2016 Influenza, Trivalent, Cell C ulture-based MDCK, Preservative Free, Antibiotic Free, Intramuscular 10/03/2024 Influenza, Unspecified 08/23/2023 Tdap 06/30/2024 Social History Tobacco Use Types Packs/Day Years [...] on file Legal Sex Female 1:36 AM EMAIL DEVELOPER Gender Identity Not on file Sexual Orientation Not on file Last Filed Vital Signs Vital Sign Reading Time Taken Comments Blood Pressure 160/98 10/03/2024 11:49 AM EMAIL DEVELOPER Pulse 89 10/03/2024 11:12 AM EMAIL DEVELOPER Temperature 36.6 C (97.8 F) 10/03/2024 11:12 AM EMAIL DEVELOPER Respiratory Rate 16 01/23/2023 8:55 AM EMAIL DEVELOPER Oxygen Saturation 97% 10/03/2024 11:12 AM EMAIL DEVELOPER Inhaled Oxygen Concentration - - Weight 92.3 kg (203 lb 6.4 oz) 10/03/2024 11:12 AM EMAIL DEVELOPER Height 162.6 cm (5' 4 ) 10/03/2024 11:12 AM EMAIL DEVELOPER Body Mass Index 34.91 10/03/2024 11:12 AM EMAIL DEVELOPER Plan of Treatment Upcoming Encounters Date Type Department Care Team (Latest Contact Info) Description 03/09/2025 7:30 AM CDT Hospital Encounter [facility] Operating Room [address] [place] [facility] [place] [address] Martha Akins MD [address] [facility] DEPT OPHTHALMOLOGY, [address] [address] (work) 03/09/2025 7:30 AM CDT - 03/09/2025 8:20 AM CDT Surgery [facility] Operating Room [address] [place] [facility] [place] [address] Martha Akins MD [address] DEPT OPHTHALMOLOGY, [facility] [address] [place] [address] EXTRACTION CATARACT - PHACOEMULSIFICATION AND LENS IMPLANT Scheduled Procedures Name Priority Associated Diagnoses Date/Ti me EXTRACTION CATARACT - PHACOEMULSIFICATION AND LENS IMPLANT 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 03/09/2025 7:30 AM CDT GONIOTOMY 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 03/09/2025 7:30 AM CDT Procedures Procedure Name Priority Date/Time Associated Diagnosis Comments MAMMOGRAPHY Routine 06/09/2017 from Last 3 Months or Most Recently Relevant to Health Maintenance Results * MAMMOGRAPHY (06/09/2017) Mammogram Unknown Historical Provider HEALTH MAINTENANCE Final Result from Last 3 Months or Most Recently Relevant to Health Maintenance Insurance [employer]os OPEN ACCESS [employer] OPEN ACCESS [employer] OPEN ACCESS Care Teams Yard Hostler Relationship Specialty Start Date End Date David Nicholson MD [address] [address] PCP - General Internal Medicine 07/19/24
--- OUTSIDE RECORDS SUMMARY | 2025-01-13 07:29 | XMS_ITS | Encounter Summary ---
Author Organization [facility] [employer] [facility] Address [address] [place] [address] Phone Care Team Providers Care Ruffling Machine Operator Name Role Phone David Nicholson MD Primary Care Provid er Encounter Details Date Type Department Care Team (Late st Contact Info) Description 12/14/2024 Telephone [facility] Ophthalmology [address] [facility] [place] [address] Sherri Villareal COA Social History Tobacco Use Types Packs/Day Years [...] on file Legal Sex Female 1:[address]TER Gender Identity Not on file Sexual Orientation Not on file documented as of this encounter Miscellaneous Notes * Telephone Encounter - Sherri Villareal COA - 12/14/2024 11:36 AM CST Phoned patient to schedule surgery: My Chart messages Location: [place] SX plan: CE/IOL/KDB OS Discussed surgery date: 03/09 Ascan:[] yes [] no Target plan: ??? Cataract Event Planning: IOL Ordered: Second eye (order added) Blood thinners (yes) or (no) special instruction: Discuss Target and document, myopic or [place] Postop appointment [x] 12/14 Prep for case[x] 12/14 Letter mailed[x] 12/14 My Chart Prior auth[] [employer] Drops sent[] Will send 02/09 Line up (arrival time) 05:30 AM SX Time: 07:[address] T OF WAY CUTTER * Telephone Encounter - Sherri Villareal COA - 12/14/2024 11:36 AM CST Cataract extraction (CE)/intraocular lens (IOL)/KDB left eye (OS) Pt to decide on refractive target no cylinder (cyl) for toric Please document discussion T OF WAY CUTTER documented in this encounter Plan of Treatment Upcoming Encounters Date Type Department Care Team (Latest Contact Info) Description 03/09/2025 7:30 AM CDT Hospital Encounter [facility] Operating Room [address] [place] [address] Martha Akins MD [address] [facility] DEPT OPHTHALMOLOGY, [address] [address] 03/09/2025 7:30 AM CDT - 03/09/2025 8:20 AM CDT Surgery [facility] [place] Operating Room [address] [place] [address] Martha Akins MD [address] [facility], [address] [id number] EXTRACTION CATARACT - PHACOEMULSIFICATION AND LENS IMPLANT Scheduled Procedures Name Priority Associated Diagnoses Date/Ti me EXTRACTION CATARACT - PHACOEMULSIFICATION AND LENS IMPLANT 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 03/09/2025 7:30 AM CDT GONIOTOMY 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 03/09/2025 7:30 AM CDT documented as of this encounter Visit Diagnoses Not on filedocumented in this encounter Care Teams Ruffling Machine Operator Relationship Specialty Start Date End Date David Nicholson MD [address] [address] PCP - General Internal Medicine 07/19/24 documented as of this encounter
--- OUTSIDE RECORDS SUMMARY | 2025-01-13 07:30 | XMS_ITS | Encounter Summary ---
Author Organization [employer] [facility] Address [address] [place] [address] Care Team Providers Care Schedule Announcer Name Role Phone Tho Escobar MD Primary Care Provider +1- [phone] Encounter Details Date Type Department Care Team (Latest Contact Info) Description 03/21/2002 Outpatient Historical [facility] Tavarez, Tori Valerio MD NO ADDRESS ON FILE SCREENING MAMM-MAILG NEOPL-OTHER (Primary Dx) Social History Tobacco Use Types Packs/Day Years Used Date Smoking Tobacco: Never Assessed Comments Unknown Sex and Gender Information Value Date Recorded Sex Assigned at Not on file Legal Sex Female 2:43 AM COLON AND RECTAL SURGEON Gender Identity Not on file Sexual Orientation Not on file documented as of this encounter Plan of Treatment Not on file documented as of this encounter Visit Diagnoses Diagnosis Other screening mammogram- Primary documented in this encounter Care Teams Schedule Announcer Relationship Specialty Start Date End Date Tho Escobar MD [address] [place] [address] PCP - General 10/02/15 documented as of this encounter
--- OUTSIDE RECORDS SUMMARY | 2025-01-13 07:30 | XMS_ITS | Encounter Summary ---
Author Organization [facility] [employer] [facility] Address [address] [place] [address] Care Team Providers Care Insulation Mechanic Name Role Phone Tho Escobar MD Primary Care Provider +1- [phone] Encounter Details Date Type Department Care Team (Latest Contact Info) Description 03/27/[address] [facility] Tavarez, Tori Valerio MD NO ADDRESS ON FILE SCREENING MAMM-MAILG NEOPL-OTHER (Primary Dx) Social History Tobacco Use Types Packs/Day Years Used Date Smoking Tobacco: Never Assessed Comments Unknown Sex and Gender Information Value Date Recorded Sex Assigned at Not on file Legal Sex Female 2:43 AM NURSE COMPANION Gender Identity Not on file Sexual Orientation Not on file documented as of this encounter Plan of Treatment Not on file documented as of this encounter Visit Diagnoses Diagnosis Other screening mammogram- Primary documented in this encounter Care Teams Insulation Mechanic Relationship Specialty Start Date End Date Tho Escobar MD [address] [place] [address] PCP - General 10/02/15 documented as of this encounter
--- OUTSIDE RECORDS SUMMARY | 2025-01-13 07:30 | XMS_ITS | Encounter Summary ---
Author Organization [employer] Address [address] [place] [address] Care Team Providers Care Licensed Therapist Name Role Phone Tho Escobar MD Primary Care Provider +1- [phone] Encounter Details Date Type Department Care Team (Late st Contact Info) Description 12/16/2004 Outpatient Historical [facility] Benita Velasco MD NO ADDRESS ON FILE CERVICITIS (Primary Dx) Social History Tobacco Use Types Packs/Day Years Used Date Smoking Tobacco: Never Assessed Comments Unknown Sex and Gender Information Value Date Recorded Sex Assigned at Not on file Legal Sex Female 2:43 AM LEAD MINER Gender Identity Not on file Sexual Orientation Not on file documented as of this encounter Plan of Treatment Not on file documented as of this encounter Visit Diagnoses Diagnosis Cervicitis and endocervicitis- Primary documented in this encounter Care Teams Licensed Therapist Relationship Specialty Start Date End Date Tho Escobar MD [address] [place] [address] PCP - General 10/02/15 documented as of this encounter
--- OUTSIDE RECORDS SUMMARY | 2025-01-13 07:30 | XMS_ITS | Encounter Summary ---
Author Organization [employer] [facility] Address [address] [place] [address] Care Team Providers Care Geriatric Nurse Assistant Name Role Phone Tho Escobar MD Primary Care Provider +1- [phone] Encounter Details Date Type Department Care Team (Latest Contact Info) Description 06/27/2005 Outpatient Historical [facility] Tavarez, Tori Valerio MD NO ADDRESS ON FILE SCREENING MAMM-MAILG NEOPL-OTHER (Primary Dx) Social History Tobacco Use Types Packs/Day Years Used Date Smoking Tobacco: Never Assessed Comments Unknown Sex and Gender Information Value Date Recorded Sex Assigned at Not on file Legal Sex Female 2:43 AM GLORY HOLE TENDER Gender Identity Not on file Sexual Orientation Not on file documented as of this encounter Plan of Treatment Not on file documented as of this encounter Visit Diagnoses Diagnosis Other screening mammogram- Primary documented in this encounter Care Teams Geriatric Nurse Assistant Relationship Specialty Start Date End Date Tho Escobar MD [address] [place] [address] PCP - General 10/02/15 documented as of this encounter
--- OUTSIDE RECORDS SUMMARY | 2025-01-13 07:30 | XMS_ITS | Encounter Summary ---
Author Organization [facility] Address [address] [place] [address] Care Team Providers Care Arabic Professor Name Role Phone Tho Escobar MD Primary Care Provider +1- [phone] Encounter Details Date Type Department Care Team (Late st Contact Info) Description 03/16/2001 Outpatient Historical [facility] Denny Zafar MD [address] [facility] [address] [place] [address] Other screening mammogram (Primary Dx) Social History Tobacco Use Types Packs/Day Years Used Date Smoking Tobacco: Never Assessed Comments Unknown Sex and Gender Information Value Date Recorded Sex Assigned at Not on file Legal Sex Female 2:43 AM RETAIL MARKETING COORDINATOR Gender Identity Not on file Sexual Orientation Not on file documented as of this encounter Plan of Treatment Not on file documented as of this encounter Visit Diagnoses Diagnosis Other screening mammogram- Primary documented in this encounter Care Teams Arabic Professor Relationship Specialty Start Date End Date Tho Escobar MD [address] [place] [address] PCP - General 10/02/15 documented as of this encounter
--- OUTSIDE RECORDS SUMMARY | 2025-01-13 07:30 | XMS_ITS | Encounter Summary ---
Author Organization [employer] Address [address] [place] [address] Care Team Providers Care Aircraft Electrician Name Role Phone Tho Escobar MD Primary Care Provider +1- [phone] Encounter Details Date Type Department Care Team (Latest Contact Info) Description 05/04/2003 Outpatient Historical [facility] Tori Tavarez MD NO ADDRESS ON FILE UTERINE ENDOMETRIOSIS (Primary Dx) Social History Tobacco Use Types Packs/Day Years Used Date Smoking Tobacco: Never Assessed Comments Unknown Sex and Gender Information Value Date Recorded Sex Assigned at Not on file Legal Sex Female 2:43 AM RN SHIFT MGR Gender Identity Not on file Sexual Orientation Not on file documented as of this encounter Plan of Treatment Not on file documented as of this encounter Visit Diagnoses Diagnosis Endometriosis of uterus- Primary documented in this encounter Care Teams Aircraft Electrician Relationship Specialty Start Date End Date Tho Escobar MD [address] [place] [address] PCP - General 10/02/15 documented as of this encounter
--- OUTSIDE RECORDS SUMMARY | 2025-01-13 07:30 | XMS_ITS | Encounter Summary ---
Author Organization [facility] Address [address] [place] [address] Care Team Providers Care Outside Event Sales Specialist Name Role Phone Tho Escobar MD Primary Care Provider +1- [phone] Encounter Details Date Type Department Care Team (Late st Contact Info) Description 02/04/[address] [facility] Sidney Sims MD [address] [place] [address] Other Screening Mammogram (Primary Dx) Social History Tobacco Use Types Packs/Day Years Used Date Smoking Tobacco: Never Assessed Comments Unknown Sex and Gender Information Value Date Recorded Sex Assigned at Not on file Legal Sex Female 2:43 AM INCLUSION INTERNSHIP Gender Identity Not on file Sexual Orientation Not on file documented as of this encounter Plan of Treatment Not on file documented as of this encounter Visit Diagnoses Diagnosis Other screening mammogram- Primary documented in this encounter Care Teams Outside Event Sales Specialist Relationship Specialty Start Date End Date Tho Escobar MD [address] [place], [place] [id number] PCP - General 10/02/15 documented as of this encounter
--- OUTSIDE RECORDS SUMMARY | 2025-01-13 07:30 | XMS_ITS | Data Portability ---
Author Organization GREGORY - [facility], PAmosCAmos, [facility] Address [address] [place] [address] Assessment No assessment recorded. Plan of Treatment Reminders Order Date Submit Date Provider Last Modified By Organization Details Last Modified Time Details Appointments None recorded. Lab HbA1c (hemoglobin A1c), blood 2021 [facility], [address], [address], [place], [address], 22:43:35 insulin, fasting, serum 2021 [facility], [address], [address], [place], [address], 07:57:09 lipid panel, serum 2021 [employer] [facility], [address], [place] [place], [place], [address], 22:43:32 CRP, high sensitivity , serum or plasma 2021 [facility], [address], [place], [address], 22:43:36 vitamin B12 + folate, serum or blood 2021 [employer] [facility], [address], [address], [place], [address], 22:43:34 CMP, serum or plasma 2021 [facility], [address], [address], [place], [address], 22:43:33 CBC w/ auto diff 2021 [facility], [address], [place], [place], [address], 22:43:33 vitamin D3, 25-hydroxy, serum 2021 [facility], [address], [address] [place], [place], [address], 07:57:08 magnesium, RBC 2021 [facility], [address], [address], [place], [address], 22:43:36 iron + total iron-bindin g capacity (TIBC), serum 2021 [facility], [address], [address], [place], [address], 22:43:33 TSH + free T4, serum 2021 [facility], [address], [place], [place], [address], 22:43:32 zinc, serum or plasma 2021 [facility], [address], [address] [place], [place], [address], 22:43:36 food allergen panel, serum - IGG Food Allergy Panel 2021 [facility], [address], [place], [place], [address], 22:43:35 Referral None recorded. Procedures None recorded. Surgeries None recorded. Imaging XR, chest, 2 view 2021 [facility], [address], [address] [address], [place], [address], 09:50:49 Medication Orders hydrochloro thiazide 12.5 mg capsule 2021 [facility][id number], [address], [place], [id number], 18:52:11 hydrochloro thiazide 12.5 mg capsule 2021 [facility] #65689, [address], [place], [id number], 12:45:03 compounded medication 2021 [facility], [address] [place], [address], 13:41:05 alprazolam 0.25 mg tablet 2021 [facility] #13962, [address], [place], [id number], 12:45:33 compounded medication 2020 [facility]62574, [address], [place], [id number], 11:08:57 [facility]ica (Silicea) 2019 020 [facility], [address] [place] [address], [place], [address], 0 12:40:21 compounded medication 2019 020 [facility], [address] [place] [address], [address], 0 12:40:26 [facility]iotic 2019 020 [facility], [facility] [place], [address], 0 12:40:24 Patient TargetsNo targets recorded. Patient Instructions Encounter Date Encounter Id Patient Instructions Last Modified By Organization Details Last Modified Time 02/08/2020 [id number] Increase fish oil to 2 twice daily Buckeye 200c 1M 2 doses, then 12c 3 pellets twice daily If not improving with this, then we will switch to Natrum Mur Topical compress - Nancy or plaintain for the eyes to calm inflammation Before bed - Milk Thistle - 250mg - 400mg one at night Lemon water before bed cwillbrand Not available 02/08/2020 13:07:00 04/04/2021 [id number] pinkeye: care instructions cwessling Not available 04/04/2021 11:47:31 01/30/2022 [id number] When You Want to Lose Weight: Care Instructions cwessling Not available 01/30/2022 12:44:57 Urogynecologists : Jesus Oliveros. Rheumatologists: Megan Mcrae provide record recent blood work To send records, you can 1. scan and email to [email or web address] 2. fax to [phone] 3. mail to: [facility] [address], [place] [address] 4. hand carry and bring by. 5. upload to portal message. cwessling Not available 01/30/2022 12:41:16 03/04/2022 [id number] When You Want to Lose Weight: Care Instructions cwessling Not available 03/04/2022 18:52:04 chronic cough: care instructions cwessling Not available 03/04/2022 18:52:04 Reason for Referral None Reported. Results Created Date Observation Date Name Description Value Unit Range Abnormal Flag Note LastModifiedBy Organization Detail LastModifiedTime 03/06/20 22 03/10/2022 LIPID PANEL (REFL ) cholesterol, total 237 mg/dL <200 high Not Available [address] [address] [place], [address], 03/10/2022 22:43:32 03/06/20 22 03/10/2022 LIPID PANEL (REFL ) HDL cholesterol 68 mg/dL > or = 50 normal Not Available [facility] [address] [address] [place], [address], 03/10/2022 22:43:32 03/06/20 22 03/10/2022 LIPID PANEL (REFL ) triglyceride s 85 mg/dL <150 normal Not Available [facility] [address], [address], 03/10/2022 22:43:32 03/06/20 22 03/10/2022 LIPID PANEL (REFL ) LDL-choleste rol 150 mg/dL _(ez c) high Refer ence range : <100 Reagan able range <100 mg/dL for prima ry preve ntion ; <70 mg/dL for patie nts with CHD or diabe tic patie nts with > or = 2 CHD risk facto rs. LDL-C is now calcu lated using the Geni n-Hop kins calcu kobi n, which is a valid ated novel nikkieo d jerad shaferte r accur acy than the Fried chelsey equat ion in the estim ation of LDL-C . Geni cuellar SS et al. JAYCE. 2013; 310(1 9): 2061- 2068 (http ://ed ucati on.Qu Kailyn Coltos. com/f aq/FA Q164) Not Available [facility] [address] [place], [address], 03/10/2022 22:43:32 03/06/20 22 03/10/2022 LIPID PANEL (REFL ) chol/HDLC ratio 3.5 (calc ) <5.0 normal Not Available [facility] [address] [place], [address], 03/10/2022 22:43:32 03/06/20 22 03/10/2022 LIPID PANEL (REFL ) non HDL cholesterol 169 mg/dL _(ez c) <130 high For patie nts with diabe casandra plus 1 major ASCVD risk facto r, treat ing to a non-H DL-C goal of <100 mg/dL (LDL- C of <70 mg/dL ) is consi breanne prasada peyamilex saldaña optio n. Not Available [address], [address], 03/10/2022 22:43:32 03/06/20 22 03/10/2022 TSH+F REE T4 TSH 1.45 mIU/L 0.40-4 .50 normal Not Available [address], [address], 03/10/2022 22:43:32 03/06/20 22 03/10/2022 TSH+F REE T4 T4, free 1.1 NG/dL 0.8-1. 8 normal Not Available [address], [address], 03/10/2022 22:43:32 03/06/20 22 03/10/2022 IRON AND TOTAL IRON SHEMAR NG CAPAC ITY iron, total 81 mcg/d L 45-160 normal Not Available [address], [address], 03/10/2022 22:43:33 03/06/20 22 03/10/2022 IRON AND TOTAL IRON SHEMAR NG CAPAC ITY iron binding capacity 334 mcg/d L_(ca lc) 250-45 0 normal Not Available [address], [address], 03/10/2022 22:43:33 03/06/20 22 03/10/2022 IRON AND TOTAL IRON SHEMAR NG CAPAC ITY % saturation 24 %_(ca lc) 16-45 normal Not Available [address] [place], [address], 03/10/2022 22:43:33 03/06/20 22 03/10/2022 COMP METAB OLIC PANEL W/ADJ CALCI UM, PLASM A glucose 89 mg/dL 65-99 normal Fasti ng refer ence inter rocky Not Available [address], [address], 03/10/2022 22:43:33 03/06/20 22 03/10/2022 COMP METAB OLIC PANEL W/ADJ CALCI UM, PLASM A urea nitrogen (BUN) 12 mg/dL 7-25 normal Not Available [address], [address], 03/10/2022 22:43:33 03/06/20 22 03/10/2022 COMP METAB OLIC PANEL W/ADJ CALCI UM, PLASM A creatinine 0.72 mg/dL 0.50-1 .05 normal For patie nts >49 years of age, the refer ence limit for Creat inine is appro ximat raghavendra 13% highe r for peopl e ident ified as Afric an-Am virgilio n. Not Available [address], [address], 03/10/2022 22:43:33 03/06/20 22 03/10/2022 COMP METAB OLIC PANEL W/ADJ CALCI UM, PLASM A eGFR non-afr. monegasque 92 mL/mi n/1.7 3m2 > or = 60 normal Not Available [facility] [address] [address] [place], [address], 03/10/2022 22:43:33 03/06/20 22 03/10/2022 COMP METAB OLIC PANEL W/ADJ CALCI UM, PLASM A eGFR 106 mL/mi n/1.7 3m2 > or = 60 normal Not Available [facility] [address], [address], 03/10/2022 22:43:33 03/06/20 22 03/10/2022 COMP METAB OLIC PANEL W/ADJ CALCI UM, PLASM A BUN/creatini ne ratio NOT APPLIC ABLE (calc ) 6-22 Not Available [address], [address], 03/10/2022 22:43:33 03/06/20 22 03/10/2022 COMP METAB OLIC PANEL W/ADJ CALCI UM, PLASM A sodium 136 mmol/ L 135-14 6 normal Not Available [address], [address], 03/10/2022 22:43:33 03/06/20 22 03/10/2022 COMP METAB OLIC PANEL W/ADJ CALCI UM, PLASM A potassium 3.1 mmol/ L 3.4-4. 8 low Not Available [address], [address], 03/10/2022 22:43:33 03/06/20 22 03/10/2022 COMP METAB OLIC PANEL W/ADJ CALCI UM, PLASM A chloride 97 mmol/ L 98-110 low Not Available [address], [address], 03/10/2022 22:43:33 03/06/20 22 03/10/2022 COMP METAB OLIC PANEL W/ADJ CALCI UM, PLASM A carbon dioxide 28 mmol/ L 20-32 normal Not Available [address], [address], 03/10/2022 22:43:33 03/06/20 22 03/10/2022 COMP METAB OLIC PANEL W/ADJ CALCI UM, PLASM A calcium 9.2 mg/dL 8.6-10 .4 normal Not Available [address], [address], 03/10/2022 22:43:33 03/06/20 22 03/10/2022 COMP METAB OLIC PANEL W/ADJ CALCI UM, PLASM A calcium (adjusted for albumin) 9.4 mg/dL _(ez c) 8.6-10 .2 normal Not Available [address], [address], 03/10/2022 22:43:33 03/06/20 22 03/10/2022 COMP METAB OLIC PANEL W/ADJ CALCI UM, PLASM A protein, total 7.0 g/dL 6.4-8. 4 normal Not Available [address], [address], 03/10/2022 22:43:33 03/06/20 22 03/10/2022 COMP METAB OLIC PANEL W/ADJ CALCI UM, PLASM A albumin 4.1 g/dL 3.6-5. 1 normal Not Available [address], [address], 03/10/2022 22:43:33 03/06/20 22 03/10/2022 COMP METAB OLIC PANEL W/ADJ CALCI UM, PLASM A globulin 2.9 g/dL_ (calc ) 2.2-4. 0 normal Not Available [address], [address], 03/10/2022 22:43:33 03/06/20 22 03/10/2022 COMP METAB OLIC PANEL W/ADJ CALCI UM, PLASM A albumin/glob ulin ratio 1.4 (calc ) 0.9-2. 3 normal Not Available [address], [address], 03/10/2022 22:43:33 03/06/20 22 03/10/2022 COMP METAB OLIC PANEL W/ADJ CALCI UM, PLASM A bilirubin, total 0.7 mg/dL 0.2-1. 2 normal Not Available [address], [address], 03/10/2022 22:43:33 03/06/20 22 03/10/2022 COMP METAB OLIC PANEL W/ADJ CALCI UM, PLASM A alkaline phosphatase 73 U/L 37-153 normal Not Available [facility] [address], [address], 03/10/2022 22:43:33 03/06/20 22 03/10/2022 COMP METAB OLIC PANEL W/ADJ CALCI UM, PLASM A AST 19 U/L 10-35 normal Not Available [address], [address], 03/10/2022 22:43:33 03/06/20 22 03/10/2022 COMP METAB OLIC PANEL W/ADJ CALCI UM, PLASM A ALT 17 U/L 6-29 normal Not Available [address], [address], 03/10/2022 22:43:33 03/06/20 22 03/10/2022 CBC (INCL UDES DIFF/ PLT) white blood cell count 6.3 thous and/u L 3.8-10 .8 normal Not Available [address], [address], 03/10/2022 22:43:33 03/06/20 22 03/10/2022 CBC (INCL UDES DIFF/ PLT) red blood cell count 5.10 jorge on/uL 3.80-5 .10 normal Not Available [address], [address], 03/10/2022 22:43:33 03/06/20 22 03/10/2022 CBC (INCL UDES DIFF/ PLT) hemoglobin 14.1 g/dL 11.7-1 5.5 normal Not Available [address], [address], 03/10/2022 22:43:33 03/06/20 22 03/10/2022 CBC (INCL UDES DIFF/ PLT) hematocrit 43.0 % 35.0-4 5.0 normal Not Available [address], [address], 03/10/2022 22:43:33 03/06/20 22 03/10/2022 CBC (INCL UDES DIFF/ PLT) MCV 84.3 fL 80.0-1 00.0 normal Not Available [address], [address], 03/10/2022 22:43:33 03/06/20 22 03/10/2022 CBC (INCL UDES DIFF/ PLT) MCH 27.6 pg 27.0-3 3.0 normal Not Available [address], [address], 03/10/2022 22:43:33 03/06/20 22 03/10/2022 CBC (INCL UDES DIFF/ PLT) MCHC 32.8 g/dL 32.0-3 6.0 normal Not Available [address], [address], 03/10/2022 22:43:33 03/06/20 22 03/10/2022 CBC (INCL UDES DIFF/ PLT) RDW 13.4 % 11.0-1 5.0 normal Not Available [address], [address], 03/10/2022 22:43:33 03/06/20 22 03/10/2022 CBC (INCL UDES DIFF/ PLT) platelet count 290 thous and/u L 140-40 0 normal Not Available [address], [address], 03/10/2022 22:43:33 03/06/20 22 03/10/2022 CBC (INCL UDES DIFF/ PLT) MPV 9.8 fL 7.5-12 .5 normal Not Available [address] [place], [address], 03/10/2022 22:43:33 03/06/20 22 03/10/2022 CBC (INCL UDES DIFF/ PLT) absolute neutrophils 3610 cells /uL 1500-7 800 normal Not Available [address], [address], 03/10/2022 22:43:33 03/06/20 22 03/10/2022 CBC (INCL UDES DIFF/ PLT) absolute lymphocytes 2148 cells /uL 850-39 00 normal Not Available [facility] [address], [address], 03/10/2022 22:43:33 03/06/20 22 03/10/2022 CBC (INCL UDES DIFF/ PLT) absolute monocytes 391 cells /uL 200-95 0 normal Not Available [address], [address], 03/10/2022 22:43:33 03/06/20 22 03/10/2022 CBC (INCL UDES DIFF/ PLT) absolute eosinophils 113 cells /uL 15-500 normal Not Available [address], [address], 03/10/2022 22:43:33 03/06/20 22 03/10/2022 CBC (INCL UDES DIFF/ PLT) absolute basophils 38 cells /uL 0-200 normal Not Available [address], [address], 03/10/2022 22:43:33 03/06/20 22 03/10/2022 CBC (INCL UDES DIFF/ PLT) neutrophils 57.3 % normal Not Available [address], [address], 03/10/2022 22:43:33 03/06/20 22 03/10/2022 CBC (INCL UDES DIFF/ PLT) lymphocytes 34.1 % normal Not Available [facility] [id number] [place], [address], 03/10/2022 22:43:33 03/06/20 22 03/10/2022 CBC (INCL UDES DIFF/ PLT) monocytes 6.2 % normal Not Available [facility] [address] [address] [place], [address], 03/10/2022 22:43:33 03/06/20 22 03/10/2022 CBC (INCL UDES DIFF/ PLT) eosinophils 1.8 % normal Not Available [facility] [address] [address] [place], [address], 03/10/2022 22:43:33 03/06/20 22 03/10/2022 CBC (INCL UDES DIFF/ PLT) basophils 0.6 % normal Not Available [facility] [address], [address], 03/10/2022 22:43:33 03/06/20 22 03/10/2022 INSUL IN insulin 14.2 uIU/m L normal Refer ence Range < or = 19.6 Risk: Optim al < or = 19.6 Moder ate NA High >19.6 Adult cardi ovasc ular event risk categ ory cut point s (opti mal, moder ate, high) are based on [facility] popul ation data from 11/11 11. This insul in assay shows stron g cross -reac tivit y for some insul in analo gs (lisp ro, aspar t, and glarg ine) and much lower cross -reac tivit y with other s (dete kirsty, gluli sine) . Not Available [facility] [address] [address] [place], [address], 03/10/2022 22:43:34 03/06/20 22 03/10/2022 VITAM IN B12/F OLATE , SERUM PANEL vitamin B12 314 pg/mL 200-11 00 normal Pleas e Note: Altho ugh the refer ence range for vitam in B12 is 200-1 100 pg/mL , it has been repor marialuisa that betwe en 5 and 10% of patie nts with value s betwe en 200 and 400 pg/mL may exper ience neuro psych iatri c and hemat ologi c abnor malit ies due to occul t B12 defic iency ; less than 1% of patie nts with value s above 400 pg/mL will have sympt oms. Not Available [address], [address], 03/10/2022 22:43:34 03/06/20 22 03/10/2022 VITAM IN B12/F OLATE , SERUM PANEL folate, serum 8.5 NG/mL normal Refer ence Range Low: <3.4 Borde rline : 3.4-5 .4 Freya l: >5.4 Not Available [address], [address], 03/10/2022 22:43:34 03/06/20 22 03/10/2022 FOOD SPECI FIC IGG ALLER GY (ADUL T) PANEL wheat (F4) IgG <2.0 mcg/m L <2.0 Not Available [address], [address], 03/10/2022 22:43:34 03/06/20 22 03/10/2022 FOOD SPECI FIC IGG ALLER GY (ADUL T) PANEL tomato (F25) IgG <2.0 mcg/m L <2.0 Not Available [address], [address], 03/10/2022 22:43:34 03/06/20 22 03/10/2022 FOOD SPECI FIC IGG ALLER GY (ADUL T) PANEL egg white (F1) IgG <2.0 mcg/m L <2.0 Not Available [address], [address], 03/10/2022 22:43:34 03/06/20 22 03/10/2022 FOOD SPECI FIC IGG ALLER GY (ADUL T) PANEL casein (F78) IgG 3.4 mcg/m L <2.0 high Not Available [address], [address], 03/10/2022 22:43:34 03/06/20 22 03/10/2022 FOOD SPECI FIC IGG ALLER GY (ADUL T) PANEL maize/corn (F8) IgG <2.0 mcg/m L <2.0 Not Available [address] [address] [place], [address], 03/10/2022 22:43:34 03/06/20 22 03/10/2022 FOOD SPECI FIC IGG ALLER GY (ADUL T) PANEL yeast (F45) IgG 2.1 mcg/m L <2.0 high Not Available [address], [address], 03/10/2022 22:43:34 03/06/20 22 03/10/2022 FOOD SPECI FIC IGG ALLER GY (ADUL T) PANEL peanut (F13) IgG <2.0 mcg/m L <2.0 Not Available [address] [address] [place], [address], 03/10/2022 22:43:34 03/06/20 22 03/10/2022 FOOD SPECI FIC IGG ALLER GY (ADUL T) PANEL soybean (F14) IgG <2.0 mcg/m L <2.0 Not Available [address] [address] [place], [address], 03/10/2022 22:43:34 03/06/20 22 03/10/2022 FOOD SPECI FIC IGG ALLER GY (ADUL T) PANEL codfish (F3) IgG <2.0 mcg/m L <2.0 Not Available [address] [address] [place], [address], 03/10/2022 22:43:34 03/06/20 22 03/10/2022 FOOD SPECI FIC IGG ALLER GY (ADUL T) PANEL cacao (chocolate) (F93) IgG 2.3 mcg/m L <2.0 high Not Available [facility] [address] [place], [address], 03/10/2022 22:43:34 03/06/20 22 03/10/2022 FOOD SPECI FIC IGG ALLER GY (ADUL T) PANEL coffee (F221) IgG <2.0 mcg/m L <2.0 This test was perfo rmed using a kit that has not been clear ed or appro casie by the FDA. The devendra tical perfo rmanc e krsitian cteri stics of this test have been deter mined by [facility]. This test, and any food speci fic aller gen IgG resul t, shoul d not be used for the diagn osis of aller gic or atopi c disea se state s (exce pt for sensi tivit y to milk in neona casandra and glute n sensi tivit y). The use of food speci fic aller gen IgG resul ts shoul d be restr icted to the asses sment of respo nse to thera peuti c inter venti ons. Not Available [facility] [address] [place], [address], 03/10/2022 22:43:34 03/06/20 22 03/10/2022 VITAM IN D,25- OH,TO RAMAN,I A vitamin D,25-oh,tota l,ia 18 NG/mL 30-100 low Vitam in D Statu s 25-OH Vitam in D: Defic iency : <20 ng/mL Insuf ficie ncy: 20 - 29 ng/mL Optim al: > or = 30 ng/mL For 25-OH Vitam in D testi ng on patie nts on D2-wyatt pplem entat ion and patie nts for whom quant itati on of D2 and D3 fract ions is requi red, the [facility] e[facility](TM ) 25-OH VIT D, (D2,D 3), LC/MS /MS is recom jalil d: order code 53003 (pilar ents >2yrs ). See Note 1 Note 1 For addit ional infor frances bashir e refer to http: //[facility] juaquin steve ics.c om/fa q/FAQ 199 (This link is being provi ded for infor leo mcneill/ educa roxane l purpo ses only. ) Not Available [facility] [address] [place], [address], 03/10/2022 22:43:35 03/06/20 22 03/10/2022 HEMOG LOBIN A1C hemoglobin A1C 5.5 %_of_ total _HGB <5.7 normal For the purpo se of scree noa for the prese nce of diabe casandra: <5.7% Consi stent with the absen ce of diabe casandra 5.7-6 .4% Consi stent with incre ased risk for diabe casandra (pred iabet es) > or =6.5% Consi stent with diabe casandra This assay resul t is consi stent with a decre ased risk of diabe casandra. Curre ntly, no conse nsus exist svetlana fischer use of hemog lobin A1c for diagn osis of diabe casandra in child charlene. Accor ding to Ameri can Diabe casandra Assoc iatio n (ADA) guide lines , hemog lobin A1c <7.0% repre sents optim al contr ol in non-p regna nt diabe tic patie nts. Diffe rent metri cs may apply to speci fic patie nt popul ation s. Stand ards of Medic al Care in Diabe casandra(A DA). Not Available [facility] [address], [place], [address], 03/10/2022 22:43:35 03/06/20 22 03/10/2022 MAGNE SIUM, RBC magnesium, RBC 6.1 mg/dL 4.0-6. 4 This test was devel oped and its devendra tical perfo rmanc e kristian cteri stics have been deter mined by [facility]. It has not been clear ed or appro casie by the FDA. This assay has been valid ated pursu ant to the CLIA regul ation s and is used for clini ez purpo ses. Not Available [facility] [address] [place], [address], 03/10/2022 22:43:36 03/06/20 22 03/10/2022 ZINC zinc 69 mcg/d L 60-130 normal This test was devel oped and its devendra tical perfo rmanc e kristian cteri stics have been deter mined by [facility]. It has not been clear ed or appro casie by the FDA. This assay has been valid ated pursu ant to the CLIA regul ation s and is used for clini ez purpo ses. Not Available [facility] [address] [place], [address], 03/10/2022 22:43:36 03/06/20 22 03/10/2022 CARDI O IQ(R) HS CRP hs CRP >10.0 mg/L <1.0 high The AHA/C DC Guide lines recom mend hs-CR P range s for ident ifyin g Relat orsalinda Cardi ovasc ular Risk in patie nts ages >17 years : <1.0 mg/L Lower Relat rosalinda Cardi ovasc ular Risk; 1.0-3 .0 mg/L [place] Relat rosalinda Cardi ovasc ular Risk; 3.1-1 0.0 mg/L Highe r Relat rosalinda Cardi ovasc ular Risk. For patie nts with highe r cardi ovasc ular risk, consi sampson retes ting in 1-2 weeks to exclu de a benig n trans ient eleva tion secon elvis to infec tion or infla mmati on from the basel ine CRP value . Persi stent eleva tions of >10.0 mg/L upon retes ting may be assoc iated with infec tion and infla mmati on. The AHA/C DC recom menda tions are based on Sarbjit on TA et al. Circu latio n. 2003; 107:4 99-51 1. For ages >17 Years : hs-CR P mg/L Risk Accor ding to AHA/C DC Guide lines <1.0 Lower relat rosalinda cardi ovasc ular risk. 1.0-3 .0 [place] relat rosalinda cardi ovasc ular risk. 3.1-1 0.0 Highe r relat rosalinda cardi ovasc ular risk. Consi sampson retes ting in 1 to 2 weeks to exclu de a benig n trans ient eleva tion in the basel ine CRP value secon elvis to infec tion or infla mmati on. >10.0 Persi stent eleva tion, upon retes ting, may be assoc iated with infec tion and infla mmati on. Not Available [facility] [address], [place], [address], 03/10/2022 22:43:36 12/21/19 20 12/20/2019 MAMMO , scree noa, bilat eral No observ ation record ed. [facility] [address] [place], [address], 12/21/2019 20:20:08 09/19/20 21 09/18/2021 MAMMO , scree noa, bilat eral No observ ation record ed. [facility] [address] [place], [address], 10/02/2021 13:12:51 03/06/20 22 03/05/2022 XR, chest , 2 view No observ ation record ed. [facility] [address], [place], [address], 03/08/2022 11:48:48 Result Notes None recorded. Problems Name Problem SNOMED Code Status Onset Date Resolution Date Notes Provider Name and Address Organization Details Recorded Time Fibrocystic disease of breast 06343187 Active Not Available [facility] 06:42:19 Uterine leiomyoma 43578055 Active Not Available [facility] 2 06:42:19 Insect bite - wound 887140732 Active Not Available [facility] 2 06:42:19 Osteoarthriti s of knee 385562320 Active Not Available [facility] 2 06:42:19 Herpes zoster 5494058 Active Not Available [facility] 2 06:42:19 Superficial thrombophlebi tis 7200620 Active Not Available [facility] 2 06:42:19 Hypertensive disorder 16335569 Active Not Available [facility] 2 06:42:19 Basal cell carcinoma of skin 602155120 Active Not Available [facility] 2 06:42:19 Perimenopausa l disorder 673245374 Active Not Available [facility] 2 06:42:19 Telogen effluvium 06721392 Active Not Available [facility] 2 06:42:19 Hyperlipidemi a 30759810 Active Not Available [facility] 2 06:42:19 Anxiety 81061712 Active Not Available [facility] 2 06:42:19 Tinnitus 52485213 Active Not Available [facility] 2 06:42:19 Acute gastritis 93355992 Active Not Available [facility] 2 06:42:19 Abdominal pain 96691271 Active Not Available [facility] 2 06:42:19 Insomnia 613008500 Active Not Available [facility] 2 06:42:19 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 Not Available [facility] 2 06:42:19 Stress 22115546 Active Not Available [facility] 2 06:42:19 Labile essential hypertension 485024403 Active 2018 Not Available [facility] 2 06:42:19 Osteoarthriti s of finger joint 228648065 Active 2018 Not Available [facility] 2 06:42:19 Cholelithiasi s without obstruction 39426291 Active 2018 Not Available [facility] 2 06:42:19 Uterine prolapse 81318386 Active 04/12/ 2022 Not Available [facility] 2 06:42:19 Hyponatremia 57922168 Active 2021 Not Available [facility] 2 06:42:19 Problem Notes None recorded. Procedures Surgical History Date Name Laterality Status Provider Name and Address Organization Details Recorded Time 11/04/20 19 Cholecystectomy completed Tho Escobar MD [address] [place], [address], [facility] 01/30/2022 12:23:38 Imaging Results Imaging Date Name Status LastModified by Organiz ation Details LastModified Time 12/20/2019 MAMMO, screening, bilateral completed [facility] [address] [place], [address], 12/21/2019 20:20:08 09/18/2021 MAMMO, screening, bilateral completed [facility] (Imaging[facility] [address] [place], [address], 10/02/2021 13:12:51 03/05/2022 XR, chest, 2 view completed [facility] [address] [address], [place], [address], 03/08/2022 11:48:48 Procedure Notes None recorded. Medical Equipment None Reported. Allergies Allergen ID Allergen Name Allergen Category Reaction Reaction Severity Criticality Documentation Date Start Date Code Code System Note Provider Name and Address Organization Details Recorded Time 31728 lisinopri l medicatio n cough severe Not available 11/17/2014 61417 RxNorm Tho Escobar MD [address] [place], [address], [facility] 4 10:33:02 1843 Substance with sulfonami de structure and antibacte rial mechanism of action (substanc e) medicatio n Not available Not available Not available 01/05/2014 71912 8003 SNOMED Viviana Guzman david, [facility] Gerald [facility] 4 16:15:15 Medications Name Sig Start Date Stop Date Status Note LastModified by Organization Details LastModified Time Masood 1-2 qhs 06/12 completed Not Available Not Available Not Available OrthoBiot ic 1 qd 02/07 completed Not Available Not Available Not Available Belladonn a 200 1m 2d; 30x 3 tid prn 2014 active Not Available Not Available Not Avai lable compounde d medicatio n apply bid to fingers 2021 active Not Available Not Available Not Avai lable Silica (Silicea) 12x 3 bid 02/07 completed Not Available Not Available Not Available Silica (Silicea) 12x 3 bid 06/23 completed Not Available Not Available Not Available compounde d medicatio n 10 drops qd 02/07 completed Not Available Not Available Not Available Magnesium Citrate 300 mg 1 bid 06/12 completed Not Available Not Available Not Available Calcarea Carbonica 200 1m 2d; 12x 3 bid 2015 active Not Available Not Available Not Avai lable compounde d medicatio n 10 drops everyday 2021 active Not Available Not Available Not Avai lable Sepia 30x q4hrs as needed for nausea 2013 active Not Available Not Available Not Avai lable Lycopodiu m 30x tid 12/20 completed Not Available Not Available Not Available Probiotic 225 1 qd 06/30 completed Not Available Not Available Not Available Calcarea Carbonica 200 1m 2d; 12x 3 bid 2014 active Not Available Not Available Not Avai lable Calcarea Carbonica 1m 10m 2d; 12c 2 bid 2015 active Not Available Not Available Not Avai lable Silica (Silicea) 200 1m 2d; 12x 3 bid 2017 active Not Available Not Available Not Avai lable Calcarea Carbonica 1m 10m 2d; 12c 2 bid 09/23 completed Not Available Not Available Not Available Calcarea Carbonica 200 1m 2d; 12x 3 bid 03/10 completed Not Available Not Available Not Available compounde d medicatio n 1 q pm 09/23 completed called into Anushka patrick 6 Not Available Not Available Not Available Lycopodiu m 200 1m 2d; 30x tid 2014 active Not Available Not Available Not Avai lable compounde d medicatio n 10 drops BID 12/20 completed Not Available Not Available Not Available Stannum 0.4% peasized portion on sore knee at bedtime 2013 active Not Available Not Available Not Avai lable compounde d medicatio n 1 ML DAILY 09/23 completed Not Available Not Available Not Available compounde d medicatio n 3 tid 01/30 completed Not Available Not Available Not Available Silica (Silicea) 200 2d; 12x 3 bid 2018 active Not Available Not Available Not Avai lable OrthoBiot ic 1 qd 12/20 completed Not Available Not Available Not Available Calcarea Carbonica 200 1m 2d; 9c 2 bid 2015 active Not Available Not Available Not Avai lable Silica (Silicea) 200 1m 2d; 12x 3 bid 03/03 completed Not Available Not Available Not Available Natrum Muriaticu m 200 2d; 12x 3 bd 06/12 completed Not Available Not Available Not Available Natrum Muriaticu m 200 1m 2d; 12x 3 bid 09/23 completed Not Available Not Available Not Available Calcarea Carbonica 200 1m 2d 2013 active Not Available Not Available Not Avai lable azelastin e 0.05 % eye drops 02/07 completed Not Available Not Available Not Available doxycycli ne hyclate 100 mg capsule 06/23 completed Not Available Not Available Not Available azithromy jyoti 250 mg tablet TAKE 2 TABLETS (500 MG) BY ORAL ROUTE ONCE DAILY FOR 1 DAY THEN 1 TABLET (250 MG) BY ORAL ROUTE ONCE DAILY FOR 4 DAYS 04/04 completed Not Available Not Available Not Available hydrocodo ne 5 mg-acetam inophen 325 mg tablet 06/12 completed Not Available Not Available Not Available fluoroura cil 5 % topical cream 06/12 completed Not Available Not Available Not Available potassium chloride ER 10 mEq tablet,ex tended release TAKE 1 TABLET BY MOUTH EVERY DAY active Not Available Not Available No t Available metronida zole 500 mg tablet 06/30 completed Not Available Not Available Not Available betametha sone valerate 0.1 % lotion 01/13 completed Not Available Not Available Not Available ciproflox acin 500 mg tablet 03/10 completed Not Available Not Available Not Available Bisac-Jennifer c 10 mg rectal supposito ry UNW AND I 1 SUP REC UTD 03/10 completed Not Available Not Available Not Available peg-elect rolyte solution 420 gram oral solution 03/10 completed Not Available Not Available Not Available doxycycli ne monohydra te 100 mg tablet 12/20 completed Not Available Not Available Not Available tramadol 50 mg tablet 06/12 completed Not Available Not Available Not Available ketorolac 10 mg tablet 12/20 completed Not Available Not Available Not Available oxycodone -acetamin ophen 5 mg-325 mg tablet 12/20 completed Not Available Not Available Not Available alprazola m 0.25 mg tablet TAKE 1 TABLET BY MOUTH EVERY DAY NEEDED active Not Available Not Available No t Available prednisol one acetate 1 % eye drops,charlene pension INSTILL 1 DROP INTO OU QID FOR 4 DAYS THEN TAPER UTD 04/04 completed Not Available Not Available Not Available benzonata te 100 mg capsule 06/23 completed Not Available Not Available Not Available neomycin- polymyxin -dexameth 3.5 mg/mL-10, 000 unit/mL-0 .1% eye drops 12/20 completed Not Available Not Available Not Available brimonidi ne 0.2 % eye drops INSTILL 1 DROP IN BOTH EYES AT BEDTIME 04/04 completed Not Available Not Available Not Available hydrochlo rothiazid e 12.5 mg capsule TAKE 1 CAPSULE BY MOUTH EVERY DAY active Not Available Not Available No t Available diclofena c sodium 75 mg tablet,de layed release 06/30 completed Not Available Not Available Not Available Valtrex 500 mg tablet Take 2 tablets 3 times a day by oral route for 7 days. 09/07 completed Not Available Not Available Not Available hydrochlo rothiazid e 25 mg tablet TAKE 1 TABLET DAILY 01/13 completed Not Available Not Available Not Available hydrocort isone butyrate 0.1 % topical solution active Not Available Not Available Not Available methylpre dnisolone 4 mg tablets in a dose pack 01/13 completed Not Available Not Available Not Available timolol maleate 0.5 % eye drops INSTILL 1 DROP IN BOTH EYES AT BEDTIME 04/04 completed Not Available Not Available Not Available hydrocort isone 2.5 % topical ointment APPLY AA OF TRUNK AND EXTREMET IES FOR BITES BID 04/04 completed Not Available Not Available Not Available cefdinir 300 mg capsule 01/13 completed Not Available Not Available Not Available dicyclomi ne 10 mg capsule TK 1 C PO Q DAY PRN 12/20 completed Not Available Not Available Not Available Lotemax 0.5 % eye drops,charlene pension active Not Available Not Available Not Available clindamyc in phosphate 1 % topical solution SARA EXT TO THE SCALP QD 01/30 completed Not Available Not Available Not Available tobramyci n 0.3 %-dexamet hasone 0.1 % eye drops,charlene pension 12/20 completed Not Available Not Available Not Available epinastin e 0.05 % eye drops 03/10 completed Not Available Not Available Not Available Methocel E 4 M granules active Not Available Not Available Not Available PCCA Lipoderm Base cream active Not Available Not Available Not Available progester one micronize d (bulk) 100 % powder TAKE 1 CAPSULE BY MOUTH AT BEDTIME 06/12 completed Not Available Not Available Not Available estradiol micronize d (bulk) 100 % powder NEW RX [id number] CREATED 05/29/20 15 AT 10:33. APPLY 1 ML AT BEDTIME 06/12 completed Not Available Not Available Not Available Combigan 0.2 %-0.5 % eye drops APPLY ONE DROP INTO BOTH EYES EVERY NIGHT AT BEDTIME 01/30 completed Not Available Not Available Not Available Bepreve 1.5 % eye drops 1 DROP INTO BOTH EYES TWICE A DAY 03/10 completed Not Available Not Available Not Available Fluvirin [id number] (PF) 45 mcg (15 mcg x3)/0.5 mL intramusc ular syringe TO BE ADMINIST ERED BY PHARMACI ST FOR IMMUNIZA TION active Not Available Not Available No t Available Afluria [id number] (PF) 45 mcg (15 mcg x 3)/0.5 mL intramusc ular syringe TO BE ADMINIST ERED BY PHARMACI ST FOR IMMUNIZA TION active Not Available Not Available No t Available Fluarix Quad [id number] (PF) 60 mcg (15 mcg x 4)/0.5 mL IM syringe TO BE ADMINIST ERED BY PHARMACI ST FOR IMMUNIZA TION 09/23 completed Not Available Not Available Not Available Vitals Date Recorded Body height Body mass index (BMI) Body weight Heart rate Systolic blood pressure Diastolic blood pressure Provider Name and Address Organization Details Last Updated DateTime 0 162.56 cm 25.2 kg/m2 23470.0 8 g 69 /min 174 mm[Hg] 93 mm[Hg] Maria Del Rosario [facility] 0 17:43:24 Date Recorded Systolic blood pressure Diastolic blood pressure Provider Name and Address Organization Details Last Updated DateTime 12/20/2019 140 mm[Hg] 80 mm[Hg] Tho Escobar MD [address] [place], [address], [facility] 12/20/2019 18:30:46 Date Recorded Body height Body mass index (BMI) Body weight Heart rate Systolic blood pressure Diastolic blood pressure Provider Name and Address Organization Details Last Updated DateTime 0 162.56 cm 26.1 kg/m2 97114.0 4 g 76 /min 153 mm[Hg] 89 mm[Hg] Maria Del Rosario [facility] 0 12:41:45 Date Recorded Body temperature Body height Body mass index (BMI) Body weight Heart rate Systolic blood pressure Diastolic blood pressure Provider Name and Address Organization Details Last Updated DateTime 1 97.5 [degF] 162.56 cm 27.4 kg/m2 10625.3 4 g 62 /min 138 mm[Hg] 85 mm[Hg] Maria Del Rosario [facility] 1 10:25:46 Date Recorded Body height Body temperature Heart rate Systolic blood pressure Diastolic blood pressure Provider Name and Address Organization Details Last Updated DateTime 01/30/2022 162.56 cm 97.7 [degF] 76 /min 161 mm[Hg] 94 mm[Hg] Maria Del Rosario Pugh [facility] 2 11:10:21 Date Recorded Body mass index (BMI) Body weight Systolic blood pressure Diastolic blood pressure Provider Name and Address Organization Details Last Updated DateTime 01/30/2022 33.5 kg/m2 31937.51 g 120 mm[Hg] 70 mm[Hg] Tho Escobar MD [address] [place], [address], [facility] 01/30/2022 12:38:49 Date Recorded Body height Body mass index (BMI) Body weight Systolic blood pressure Diastolic blood pressure Provider Name and Address Organization Details Last Updated DateTime 03/04/2022 162.56 cm 34.8 kg/m2 21928.25 g 145 mm[Hg] 83 mm[Hg] Chandrika Guajardo [facility] 2 17:18:48 Social History Question Answer Notes LastModified by Organizat ion Details LastModified Time Tobacco Smoking Status Never Smoker Not Available [facility] 09/25/2020 03:29:38 What Is Your Level Of Alcohol Consumption? Occasional [id number] Information not available 09/25/2020 Sex: Unknown Functional Status None recorded. Mental Status None recorded. Family History Relationship Description Onset Age of this Age Resolved Age Notes LastModified by Organization Details LastModified Time Mother Bipolar II disorder [email or web address] Not available 2015 13:57:55 Father Coronary arterioscler osis [email or web address] Not available 2015 13:57:55 Father Cerebrovascu lar accident [email or web address] Not available 11/2015 13:57:55 Medical History Condition Response Coronary Artery Disease N Gout N Kidney Stones N Blood Diseases N Hyperthyroidism N Hypothyroidism N COPD N Depression N Developmental or Behavioral Disorders N Anxiety Disorder N Muscle, Joint, or Bone Problems N Vision or Eye Problems N Arthritis N Head Injury/Concussion N Congenital Anomalies N Cancer Y Stroke N ADHD N Bladder or Kidney Problems N Hospital Admission other than N High Cholesterol N Liver Disease N Fibromyalgia N Headaches N Kidney Disease N Ear or Hearing Problems N Thyroid Problems N Skin Problems N Anemia N Constipation N Mental Illness N Diabetes N Bedwetting N Heart Problems/Murmur N Seizures/Epilepsy N Tuberculosis N Diverticulitis N Asthma N Allergies N Reflux/GERD N Heart Disease N Pulmonary Embolism N Hypertension Y Chicken Pox N Autism Spectrum Disorder (ASD) N Osteoporosis N Gynecological HistoryNo gynecological history recorded. Obstetrics History GPAL:G 0 P 0 0 0 0 Immunizations Vaccine Type Date Status Note Provider Nam e and Address Organization Details Recorded Time COVID-19, mRNA, LNP-S, PF, 30 mcg/0.3 mL dose 01/04/2021 completed Not Available [facility] 2 06:42:19 COVID-19, mRNA, LNP-S, PF, 30 mcg/0.3 mL dose 01/25/2021 completed Not Available [facility] 2 06:42:19 COVID-19, mRNA, LNP-S, PF, 30 mcg/0.3 mL dose 09/18/2021 completed Not Available [facility] 2 06:42:19 Influenza, split virus, quadrivalent, PF 08/18/2016 completed Not Available [facility] 2 06:42:19 Past Encounters Encounter ID Performer Location Encounter Start Date Encounter Closed Date Diagnosis/Indication Diagnosis SNOMED-CT Code Diagnosis ICD10 Code Diagnosis Note [id number] Ana Stovall[address]ty Main [facility] [address] [place] [address] 01/05/2014 15:24:11 01/05/2014 17:21:48 Superficial thrombophlebitis 1356140 Hypertensive disorder 94124335 Basal cell carcinoma of skin 084938346 Adverse re action to drug 05386524 [id number] Viviana Guzman Main Office [address] [place] [address] 04/19/2014 13:09:06 04/19/2014 14:40:37 Superficial thrombophlebitis 0064040 Hypertensive disorder 30200736 Basal cell carcinoma of skin 142289547 Adverse re action to drug 69616159 Fibrocysti c disease of breast 48719237 Uterine leiomyoma 81007511 [id number] Main Office [address] [place] [address] 06/14/2014 09:31:50 06/14/2014 10:38:45 Hypertensive disorder 98270382 Superficia l thrombophlebitis 0295153 Uterine leiomyoma 67537124 Fibrocysti c disease of breast 25851868 Insect bite - wound 985684033 History of anemia - iron deficient 510319363 [id number] Viviana Guzman Main Office [address] [place] [address] 08/09/2014 10:07:32 08/09/2014 12:10:04 Osteoarthritis of knee 835885712 Hypertensive disorder 01786408 Superficia l thrombophlebitis 8710020 Uterine leiomyoma 30160237 Fibrocysti c disease of breast 29235649 Insect bite - wound 490284043 History of anemia - iron deficient 197858404 [id number] Viviana Guzman Main Office [address] [place] [address] 10/20/2014 09:20:02 10/20/2014 11:00:00 Osteoarthritis of knee 796158670 Hypertensive disorder 87707011 Superficia l thrombophlebitis 2932748 Uterine leiomyoma 75428954 Fibrocysti c disease of breast 77605391 History of anemia - iron deficient 618408986 Perimenopa usal disorder 389113194 Telogen effluvium 32506662 [id number] [employer] Main Office [address] [place] [address] 11/17/2014 09:26:13 11/17/2014 10:39:04 Osteoarthritis of knee 179933998 Hypertensive disorder 72944876 Superficia l thrombophlebitis 3552760 Uterine leiomyoma 07189057 Fibrocysti c disease of breast 80092819 History of anemia - iron deficient 383045256 Perimenopa usal disorder 832072627 Telogen effluvium 00619357 Hyperlipidemia 32690533 Anxiety 88669242 [id number] Main Office [address] [place] [address] 02/08/2015 09:55:57 02/08/2015 11:00:55 Tinnitus 07140267 Hyperlipidemia 73362969 Hypertensive disorder 43918764 Basal cell carcinoma of skin 455235078 [id number] Main Office [address] [place] [address] 06/27/2015 12:15:23 06/27/2015 13:58:08 Hyperlipidemia 96808180 Hypertensive disorder 31391910 Basal cell carcinoma of skin 470764697 Acute gastritis 51743994 [id number] Main Office [address] [place] [address] 08/14/2015 12:16:31 08/14/2015 14:09:06 Hyperlipidemia 82578975 Hypertensive disorder 80203950 Basal cell carcinoma of skin 619352176 Abdominal pain 65950850 Anxiety 60380704 [id number] Smiley Pickett Main Office [address] [place] [address] 12/24/2015 13:27:06 12/24/2015 14:37:49 Hyperlipidemia 95988264 E78.5 Hypertensive disorder 38 516385 I10 Basal cell carcinoma of skin 845913475 C44.91 Anxiety 39483722 F41.9 Insomnia 620132104 G47.0 0 [id number] Smileytristan Pickett Main Office [address] [place] [address] 01/23/2016 17:35:49 01/23/2016 19:59:00 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 Hyperlipidemia 70294704 E78.5 Hypertensive disorder 38 300950 I10 Insomnia 713402906 G47.0 0 Anxiety 12361157 F41.9 Stress 06117076 Z73.3 [id number] Tho Escobar MD Main Office [address] [place] [address] 05/02/2016 12:35:17 05/02/2016 14:25:45 Perimenopausal disorder 142182195 N95.9 Fibrocysti c disease of breast 35986202 N60.19 Basal cell carcinoma of skin 993233120 C44.91 Lentigo ma ligna melanoma 286388518 C43.9 Hypertensive disorder 38 764766 I10 Stasis dermatitis 300642 05 I83.10 Uterine leiomyoma 032214 05 D25.9 Iron defic iency anemia 97200202 D50.9 [id number] Tho Escobar MD Main Office [address] [place] [address] 10/24/2016 12:13:26 10/24/2016 13:53:35 Weight gain 4762179 R63.5 Hypertensive disorder 38 857437 I10 Recurrent basal cell carcinoma 403363722 C44.91 History of Malignant melanoma 005796846 Z85.820 Intolerant of cold 06975 000 R68.89 [id number] Tho Escobar MD Main Office [address] [place] [address] 11/28/2016 14:30:12 11/28/2016 15:50:46 Hypertensive disorder 74615997 I10 Recurrent basal cell carcinoma 407837231 C44.91 History of Malignant melanoma 446314342 Z85.820 Intolerant of cold 47412 000 R68.89 Perimenopa usal disorder 778022746 N95.9 [id number] Tho Escobar MD Main Office [address] [place] [address] 06/12/2017 13:17:17 06/12/2017 15:19:44 Hypertensive disorder 39060024 I10 Recurrent basal cell carcinoma 156792280 C44.91 History of Malignant melanoma 945667336 Z85.820 Intolerant of cold 79691 000 R68.89 Perimenopa usal disorder 193235039 N95.9 [id number] Tho Escobar MD Main Office [address] [place] [address] 09/23/2017 14:59:32 09/23/2017 16:54:26 Acid reflux 385939817 K21.9 Allergic rhinitis 202137 04 J30.9 Diarrhea 39328635 R19.7 [id number] Tho Escobar MD Main Office [address] [place] [address] 03/10/2018 12:58:58 03/10/2018 14:25:44 Right upper quadrant pain 712727174 R10.11 Diarrhea 43539119 R19.7 Basal cell carcinoma of skin 527995946 C44.91 Hypertensive disorder 38 933575 I10 [id number] Tho Escobar MD Main Office [address] [place] [address] 06/30/2018 18:43:42 06/30/2018 20:06:54 Otalgia 41974924 H92.02 Headache 50913823 R51 Tinnitus 72669827 H93.13 [id number] Tho Escobar MD Main Office [address] [place] [address] 01/13/2019 09:48:58 01/13/2019 10:44:37 Headache 19186589 R51 Tinnitus 76807755 H93.13 Osteoarthr itis of finger joint 928259781 M19.049 Menopause present 456836 006 N95.1 Hypertensive disorder 38 256846 I10 [id number] Tho Escobar MD Main Office [address] [place] [address] 03/03/2019 11:54:31 03/03/2019 13:34:31 Cholelithiasis without obstruction 43672972 K80.20 Osteoarthr itis of finger joint 356627493 M19.049 Labile ess ential hypertension 876039782 I10 [id number] Tho Escobar MD Main Office [address] [place] [address] 06/23/2019 16:27:38 06/23/2019 17:39:23 Cholelithiasis without obstruction 39436220 K80.20 [id number] Tho Escobar MD Main Office [address] [place] [address] 09/14/2019 09:33:52 09/14/2019 10:29:15 Anxiety 11521205 F41.9 Osteoarthr itis of finger joint 285511938 M19.049 Ganglion c yst of right hand 3693036609 90883 M67.441 Cholelithi asis without obstruction 06830777 K80.20 [id number] Tho Escobar MD Main Office [address] [place] [address] 12/20/2019 16:59:52 12/20/2019 18:35:51 Cholelithiasis without obstruction 78560807 K80.20 Bacterial overgrowth syndrome 63782473 A04.9 Ganglion of wrist 066469 009 M67.439 [id number] Tho Escobar MD Main Office [address] [place] [address] 02/08/2020 12:39:08 02/08/2020 13:14:05 Conjunctivitis 0361692 H10.9 Headache 23092975 R51 [id number] Tho Escobar MD Main Office [address] [place] [address] 04/04/2021 10:14:15 04/04/2021 11:51:20 Conjunctivitis 1954907 H10.9 Glaucoma 36497515 H40.9 Posterior vitreous detachment of left eye 3745401554 41560 H43.812 [id number] Tho Escobar MD Main Office [address] [place] [address] 01/30/2022 11:02:54 01/30/2022 12:46:55 Hypertensive disorder 49889928 I10 Obesity 735620356 E66.9 Insomnia 302850714 G47.0 0 Anxiety 78517148 F41.9 Uterine prolapse 3039223 5 N81.4 Osteoarthr itis of finger joint 994260732 M19.049 [id number] Tho Escobar MD Main Office [address] [place] [address] 03/04/2022 17:07:39 03/04/2022 18:58:25 Hypertensive disorder 07221268 I10 Obesity 566774849 E66.9 Insomnia 357825801 G47.0 0 Anxiety 12625865 F41.9 Uterine prolapse 9201137 5 N81.4 Osteoarthr itis of finger joint 361225826 M19.049 Fatigue 07915851 R53.83 Chronic cough 49788095 R 05.3 Health Concerns Section Related Observation LastModified by Organization Detai ls LastModified Time None Recorded Concern Status LastModified by Organization Details LastModified Time None Recorded Advance Directives Directive None Recorded Payers Encounter Date Sequence Insurance Name Policy Number Policy Muhammad Covered Member ID Muhammad Member ID Guarantor Name 12/20/2019 1 [place] [id number] Perla Mendez [id number] Perla Mendez 02/08/2020 1 [place] [id number] Perla Mendez [id number] Perla Mendez 04/04/2021 1 [facility] (PPO) [id number] Perla Mendez [id number] Perla Mendez 01/30/2022 1 [facility] ([facility] [id number] Perla Mendez [id number] Perla Mendez 03/04/2022 1 [facility] ([place]O) [id number] Perla Mendez [id number] Perla Mendez Notes Date Note Type Note Provider Name and Address Organization Details Recorded Time 12/20/2019 text/html Cholecystectomy 11-04-2019 - [facility] and felt well taken care of.Had pancreatitis and obstructive Jaundice but passed the stone without ERCP.Was hospitalized a week. Tho Escobar MD [address] [place], [id number], [facility] 12/20/2019 18:33:55 02/08/2020 text/html Eyes - problems for a couple of months. Tried Silicea last time. Didn't seem to help at all. Blood shot. No discharge, no pain. No itchy. Eyelids are a little swollen. Vision is normal.Had eyes checked in November. Eyes had improved. Adjusted the prescription.Last year dealing with gallbladder problems. Wasn't eating hardly any fat. Then had pancreatis from a stone.October - had gallbladder removed. Had gallstones. Has lost 60lbs in the past 1 1/2 years. Added fat back into diet.Just added in fish oil.Just added in eye drops twice daily last week.Waking with headaches. Frontal. Will go away.Eyes are a little better as the day goes on. Red eyes gets worse as the day goes on. Tho Escobar MD [address] [place], [id number], [facility] 02/08/2020 17:23:59 04/04/2021 text/html Follow up.Eye inflammation since 09/2019 red blood shot not itch burn pain. Has photophobia and constant tearing. Blinkig lots.L vitreous detachment 01/2020 no treatment and scotoma and floaters are only now resolving. Now L eye narrow visual field. New diagnosis of glaucoma prescribed Combigan one drop at night and pressure is down from 21 to 14. Hard to find correct prescription for L eye.Saw other dr for 2nd opinion who did not necessarily agree with the diagnosis.Drs. 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 Tho Escobar MD [address] [place], [address], [facility] 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 BP 145/80 at home.Heart rate feels higher.Not resumed HCTZ which worked well in past. Sleep hard falls asleep well 900-930 pm but wakes 200-230 am thinking she has slept her fill - brain going in circles - random thoughts. Xanax 0.25 helps uses infrequently - # 90 prescribed 08/2019 still has #12 would like RF. Cholecystectomy 2019 cystocele rectocele was scheduled for surgery 10/2021 but her doctor abruptly left practice. 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 01/30/2022 12:45:38 03/04/2022 text/html Started HCTZ 12. 5 - BPs 145/88 with highest spikes up to 160/109 Some things not feeling right.Cough since early november - like piece of lint in back of throat then must cough vigorously for a long time to stop the cough the cough is dry. Weird little tickle. It does not wake her at night but can be worse at night when she first lies down.Bone deep tired.Sleeps really hard at night 9-10 hours - previously would only sleep for ca. 7-8 hours. Still not necessarily refreshed on waking.Heart feels like it is racing. Occurs randomly. Resting HR up from 71 to 83 avg.Appears that legs have swollen.Pillow case smells of ROE in morning.Was not diagnosed with covid but wonders if it might be long haul.Mood is good. feels therapy has been helping with her complex grief.Weight up to 203 - mostly related to fast food, portion sizes, and less physical activity. 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 BP 145/80 at home.Heart rate feels higher.Not resumed HCTZ which worked well in past. Sleep hard falls asleep well 900-930 pm but wakes 200-230 am thinking she has slept her fill - brain going in circles - random thoughts. Xanax 0.25 helps uses infrequently - # 90 prescribed 08/2019 still has #12 would like RF. Cholecystectomy 2019 cystocele rectocele was scheduled for surgery 10/2021 but her doctor abruptly left practice. 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 03/04/2022 22:22:54 OBGyn Episode No OBEpisode recorded.
--- OUTSIDE RECORDS SUMMARY | 2025-01-13 07:30 | XMS_ITS | Data Portability ---
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 Generic HPI TemplateReported bypatient.Location:R knee Quality:ache Severity:improvement Duration:comes and goes Onset/Timin months Context:arthritis Aggravating factors:activity/stairs Alleviating factors:tylenol, ice, rest Kathy Bangura, BRAYAN [address], [facility] [address], [place], [address], [facility] 11/19/2023 12:54:22 OBGyn Episode No OBEpisode recorded.
--- OUTSIDE RECORDS SUMMARY | 2025-01-13 07:30 | XMS_ITS | Data Portability ---
Author Organization [facility] CRISTIANEWei Anthony Address [address] [facility] [place] [address] Care Team Providers Care Frozen Yogurt Maker Name Role Phone JIAN BAEZ Primary Care Provider Unavailab le Assessment Encounter Date Assessment Date Assessment LastModified by Organization Details LastModified Time 02/12/2024 02/12/2024 Mammogram UTD had recent D&C [email or web address] Not available 02/12/2024 15:22:20 Plan of Treatment Reminders Order Date Submit Date Provider Last Modified By Organization Details Last Modified Time Details Appointments None recorded. Lab HbA1c (hemoglob in A1c), blood 2023 024 [email or web address] [facility], [address], [place], [address], 5 15:40:32 CBC w/ auto diff 2023 024 [email or web address] [facility], [address], [place], [address], 5 15:40:32 CMP, serum or plasma 2023 024 [email or web address] [facility], [address], [place], [address], 5 15:40:32 culture, urine 2023 024 [email or web address] [facility], [address], [place], [address], 5 15:40:32 urinalysi s, complete 2023 024 [facility], [address], [place], [address], 5 15:40:32 lipid panel, serum 2023 024 [facility], [address], [place], [address], 5 15:40:32 TSH + free T4, serum 2023 024 [facility], [address], [place], [address], 4 07:12:48 lipid panel, serum 2023 024 [facility], [address], [place], [address], 4 07:12:48 HbA1c (hemoglob in A1c), blood 2023 024 [facility], [address], [place], [address], 4 07:12:49 SARS CoV 2 Ab, QL, IA, serum or plasma 2023 024 [facility], [address], [place], [address], 4 12:11:43 measles + mumps + rubella virus IgG panel, QN, serum or plasma 2023 024 [facility], [address], [place], [address], 4 07:12:49 Referral None recorded. Procedures None recorded. Surgeries None recorded. Imaging CT, abdomen + pelvis, w/ contrast 2023 024 [facility] (Imaging), [address] [place] [address] [address], [place], [address], 09:02:09 Medication Orders None recorded. Patient TargetsNo targets recorded. Patient InstructionsNo instructions recorded. Reason for Referral None Reported. Results Created Date Observation Date Name Description Value Unit Range Abnormal Flag Note LastModifiedBy Organization Detail LastModifiedTime 02/29/20 24 03/01/2024 LIPID PANEL W/ CHOL/ HDL RATIO cholesterol, total 231 mg/dL 100-19 9 above high normal Not Available [facility] ([facility]) [address] [place], [address], 03/01/2024 07:12:48 02/29/20 24 03/01/2024 LIPID PANEL W/ CHOL/ HDL RATIO triglyceride s 113 mg/dL 0-149 Not Available [facility] ([facility]) [address] [place], [address], 03/01/2024 07:12:48 02/29/20 24 03/01/2024 LIPID PANEL W/ CHOL/ HDL RATIO HDL cholesterol 58 mg/dL >39 Not Available [facility] ([facility]) [address] [place], [address], 03/01/2024 07:12:48 02/29/20 24 03/01/2024 LIPID PANEL W/ CHOL/ HDL RATIO VLDL cholesterol ez 20 mg/dL 5-40 Not Available [facility] ([facility]) [address] [place], [address], 03/01/2024 07:12:48 02/29/20 24 03/01/2024 LIPID PANEL W/ CHOL/ HDL RATIO LDL chol calc ([facility]) 153 mg/dL 0-99 above high normal Not Available [facility] ([facility]) [address] [place], [address], 03/01/2024 07:12:48 02/29/20 24 03/01/2024 LIPID PANEL W/ CHOL/ HDL RATIO T. chol/HDL ratio 4.0 ratio 0.0-4. 4 T. Chol/ HDL Ratio Men Women 1/2 Avg.R isk 3.4 3.3 Avg.R isk 5.0 4.4 2X Avg.R isk 9.6 7.1 3X Avg.R isk 23.4 11.0 Not Available [facility] ([facility]) [address] [place], [address], 03/01/2024 07:12:48 02/29/20 24 03/01/2024 TSH+F REE T4 TSH 1.210 uIU/m L 0.450- 4.500 Not Available [facility] ([facility]) [address] [place], [address], 03/01/2024 07:12:48 02/29/20 24 03/01/2024 TSH+F REE T4 T4,free(dire ct) 1.22 NG/dL 0.82-1 .77 Not Available [facility] ([facility]) [address] [place], [address], 03/01/2024 07:12:48 02/29/2003/01/2024 HEMOG LOBIN A1C hemoglobin A1C 5.8 % 4.8-5. 6 above high normal Predi abete s: 5.7 - 6.4 Diabe casandra: >6.4 Glyce bess contr ol for adult s with diabe casandra: <7.0 Not Available [facility] ([facility]) [address] [place], [address], 03/01/2024 07:12:49 02/29/20 24 03/01/2024 MEASL ES/MU MPS/R UBELL A IMMUN ITY rubella antibodies, IgG 3.27 index immune >0.99 Non-i mmune <0.90 Equiv ocal 0.90 - 0.99 Immun e >0.99 Not Available [facility] ([facility]) [address] [place], [address], 03/01/2024 07:12:49 02/29/20 24 03/01/2024 MEASL ES/MU MPS/R UBELL A IMMUN ITY measles antibodies, IgG 280.0 AU/mL immune >16.4 Negat rosalinda <13.5 Equiv ocal 13.5 - 16.4 Posit rosalinda >16.4 Prese nce of antib odies to Rubeo la is presu mptiv e evide nce of immun ity excep t when acute infec tion is suspe cted. Not Available [facility] ([facility]) [address] [facility], [place], [address], 03/01/2024 07:12:49 02/29/20 24 03/01/2024 MEASL ES/MU MPS/R UBELL A IMMUN ITY mumps abs, IgG 75.6 AU/mL immune >10.9 Negat rosalinda <9.0 Equiv ocal 9.0 - 10.9 Posit rosalinda >10.9 A posit rosalinda resul t gener ally indic ates past expos ure to Mumps virus or previ ous vacci natio n. Not Available [facility] ([facility]) [address] [facility], [place], [address], 03/01/2024 07:12:49 02/29/2003/01/2024 SARS- COV-2 AB, NUCLE OCAPS ID sars-cov-2 Ab, nucleocapsid Negati ve negati ve This sampl e does not conta in detec table SARS- CoV-2 antib odies . This negat rosalinda resul t does not rule out SARS- CoV-2 infec tion. Corre latio n with epide miolo gic risk facto rs and other clini ez and labor atory findi ngs is recom jalil d. Serol ogjerome hernandez d not be used as the sole basis to diagn ose or exclu de recen t SARS- CoV-2 infec tion. This assay will not detec t antib odies induc ed by the curre ntly avail able SARS- CoV-2 vacci rena. The curre nt vacci rena elici t antib odies speci fic to the viral spike prote in. [facility] offer s two test codes that detec t viral spike -spec ific antib odies : 99616 0 SARS- CoV-2 Semi- Quant itati ve Total Antib angel, Josh and 62578 5 SARS- CoV-2 Antib angel, IgG, Josh (Qual itati ve). Posit rosalinda resul ts with this SARS- CoV-2 Antib odies , Nucle ocaps id assay sugge st recen t or previ ous natur al infec tion with SARS- CoV-2 . Not Available [facility] ([facility]) [address] [facility], [place], [address], 03/01/2024 12:11:42 07/04/2007/01/2024 MAMMO , scree noa, bilat eral No observ ation record ed. [email or web address] [facility] [address], [place], [address], 07/04/2024 13:51:37 08/23/2008/22/2024 CT, abdom en + pelvi s, w/ contr ast No observ ation record ed. [facility] [address], [place], [address], 08/26/2024 09:47:41 Result Notes None recorded. Problems Name Problem SNOMED Code Status Onset Date Resolution Date Notes Provider Name and Address Organization Details Recorded Time Blood glucose outside reference range 899446706 Active 2023 BRAYAN Doan Attn: [address] [place], [address], [place] 4 12:15:23 Hyperlipidemia 89685702 Active 2023 BRAYAN Doan Attn: [address] [place], [address], [place] 4 12:15:24 Long-term drug therapy Active 2023 BRAYAN Doan Attn: [address] [place], [address], [facility] 4 12:15:36 Right lower quadrant pain 200478126 Active 2023 BRAYAN Doan Attn: [place],[address], [place], [address], [facility] 4 12:15:48 Problem Notes None recorded. Procedures Surgical History Date Name Laterality Status Provider Name and Address Organization Details Recorded Time D & c after delivery completed John Mosquera MA [place] 06/30/2024 11:59:52 Imaging Results Imaging Date Name Status LastModified by Organiz ation Details LastModified Time 07/01/2024 MAMMO, screening, bilateral completed [email or web address] [facility] [address], [place], [address], 07/04/2024 13:51:37 08/22/2024 CT, abdomen + pelvis, w/ contrast completed [facility] [address], [place], [address], 08/26/2024 09:47:41 Procedure Notes None recorded. Medical Equipment None Reported. Allergies Allergen ID Allergen Name Allergen Category Reaction Reaction Severity Criticality Documentation Date Start Date Code Code System Note Provider Name and Address Organization Details Recorded Time 529017 amoxicill in medicatio n Not available Not available Not available 02/12/2024 723 RxNorm Not Available Not Available Not Available 281286 oxycodone medicatio n Not available Not available Not available 02/12/2024 7804 RxNorm Not Available Not Available Not Available Medications Name Sig Start Date Stop Date Status Note LastModified by Organization Details LastModified Time latanoprost 0.005 % eye drops INSTILL 1 DROP INTO AFFECTED EYE(S) BY OPHTHALMI C ROUTE ONCE DAILY INTHE EVENING active Not Available Not Available No t Available Tylenol 500 mg capsule Take 2 tablets every 6 hours by oral route. active Not Available Not Available No t Available Flonase 50 mcg/actuati on nasal spray,suspe nsion Macy 1 spray every day by intranasa l route. active Not Available Not Available No t Available potassium chloride ER 10 mEq tablet,exte nded release TAKE 1 TABLET DAILY 2023 active Not Available Not Available Not Avai lable triamcinolo ne acetonide 0.1 % topical cream APPLY A THIN LAYER TO THE AFFECTED AREA OF BUG BITES BY TOPICAL ROUTE 2 TIMES PER DAY active Not Available Not Available No t Available meloxicam 7.5 mg tablet Take 1 tablet every day by oral route. active Not Available Not Available No t Available alprazolam 0.25 mg tablet Take 1 tablet 3 times a day by oral route. active Not Available Not Available No t Available hydrochloro thiazide 12.5 mg capsule TAKE 1 CAPSULE DAILY active Not Available Not Available No t Available methylpredn isolone 4 mg tablets in a dose pack 06/30 completed Not Available Not Available Not Available mometasone 0.1 % topical cream APPLY TOPICALLY TO THE AFFECTED AREA DAILY active Not Available Not Available No t Available hydrochloro thiazide 12.5 mg tablet Take 1 tablet every day by oral route. 06/30 completed Not Available Not Available Not Available Paxlovid 300 mg (150 mg x 2)-100 mg tablets in a dose pack 06/30 completed Not Available Not Available Not Available Vitals Date Recorded Body height Body mass index (BMI) Body weight Respiratory rate Heart rate Oxygen saturation Oxygen saturation in Arterial blood by Pulse oximetry Systolic blood pressure Diastolic blood pressure Provider Name and Address Organization Details Last Updated DateTime 4 162.56 cm 36.7 kg/m2 40950.7 7 g 18 /min 78 /min 99 % 99 % 142 mm[Hg] 90 mm[Hg] John Mosquera MA [facility] 14:59:00 Date Recorded Systolic blood pressure Diastolic blood pressure Provider Name and Address Organization Details Last Updated DateTime 02/12/2024 160 mm[Hg] 78 mm[Hg] BRAYAN Doan Attn: [address] [place], [address], [facility] 02/12/2024 15:26:07 Date Recorded Body height Body mass index (BMI) Body weight Respiratory rate Oxygen saturation Oxygen saturation in Arterial blood by Pulse oximetry Heart rate Systolic blood pressure Diastolic blood pressure Provider Name and Address Organization Details Last Updated DateTime 4 162.56 cm 36.1 kg/m2 03807.5 4 g 18 /min 98 % 98 % 80 /min 142 mm[Hg] 88 mm[Hg] John Mosquera MA [facility] 12:01:43 Social History Question Answer Notes LastModified by Organizat ion Details LastModified Time Tobacco Smoking Status Never Smoker John Mosquera MA null, [facility] 02/12/2024 14:55:07 Do You Have An Advance Directive? Yes Information not available 06/30/2024 What Is Your Level Of Alcohol Consumption? Occasional Information not available 02/12/2024 Are You Blind Or Do You Have Difficulty Seeing? No Glasses Information not available 02/12/2024 What Is Your Level Of Caffeine Consumption? None Information not available 02/12/2024 In The 14 Days Before Symptom Onset, Have You Had Close Contact With A Laboratory-confir med COVID-19 While That Case Was Ill? No Information not available 02/12/2024 In The 14 Days Before Symptom Onset, Have You Had Close Contact With A Person Who Is Under Investigation For COVID-19 While That Person Was Ill? No Information not available 02/12/2024 Have You Been To An Area Known To Be High Risk For COVID-19? Yes Information not available 02/12/2024 Are You Currently Employed? Yes Information not available 02/12/2024 Are You Deaf Or Do You Have Serious Difficulty Hearing? No Information not available 02/12/2024 What Type Of Diet Are You Following? REGULAR Information not available 02/12/2024 What Is Your Occupation? [employer] Information not available 02/12/2024 Are There Any Guns Present In Your Home? No Information not available 02/12/2024 What Was The Date Of Your Most Recent Tobacco Screening? 06/30/2024 Information not available 06/30/2024 Do You Use Your Seat Belt Or Car Seat Routinely? Yes Information not available 02/12/2024 Do You Have Smoke And Carbon Monoxide Detectors In Your Home? Yes Information not available 02/12/2024 Do You Use Any Illicit Or Recreational Drugs? No Information not available 02/12/2024 Do You Use Sunscreen Routinely? Yes Information not available 02/12/2024 Has Tobacco Cessation Counseling Been Provided? No Information not available 02/12/2024 Do You Or Have You Ever Used Any Other Forms Of Tobacco Or Nicotine? No Information not available 02/12/2024 Sex: Female Functional Status Question Answer Note LastModified by Organizat ion Details LastModified Time Are you able to care for yourself? Yes Information not available 02/12/2024 What is your exercise level? Occasional walk Information not available 02/12/2024 Mental Status None recorded. Family History Nothing Reported. Medical History No medical history recorded. Gynecological History Statement/Question Response Menses Monthly N Current Control Method Menopause Obstetrics History GPAL:G 2 P 2 0 0 2 Type Value Multiple Births 0 Full Term 2 Induced 0 Spontaneous 0 Premature 0 Living 2 Ectopics 0 Total 2 Past Encounters Encounter ID Performer Location Encounter Start Date Encounter Closed Date Diagnosis/Indication Diagnosis SNOMED-CT Code Diagnosis ICD10 Code Diagnosis Note [id number] BRAYAN Doan [facility] [address] [place] [address] 02/12/2024 14:34:24 02/18/2024 11:17:04 Cholesterol screening 700758251 Z13.220 fasting lipids are due Diabetes m ellitus screening 235260377 Z13.1 a1c screening due Screening procedure 2012 5006 Z13.9 pt requests MMR titers and covid nucleocaps id ab labs Thyroid di sorder screening 007984985 Z13.29 routine thyroid panel due Anti-nucle ar factor detected 836324108 R76.8 noted on prior labs and pt is seeing specialist for evaluation . Benign ess ential hypertension 8234116 I10 Pt to monitor home blood pressure readings and give us an update on readings. she is on HCTZ 12.5mg daily at this time. she may need additional medication . [id number] BRAYAN Doan [facility] [address] [place] [address] 06/30/2024 11:50:18 06/30/2024 13:02:59 Pain of left knee joint 2584310903 78743 M25.562 Patient will be seeing Orthopedic s as needed for left knee pain Lower urin carlos enrique tract symptoms 361940599 R39.9 Check urine with culture Right lowe r quadrant pain 937458957 R10.[address] scan abdomen and pelvis with contrast to evaluate for colon, adnexa and appendix. Long-term drug therapy 672471616 Z79.899 Routine CBC and CMP are due Hyperlipidemia 57202313 E78.5 Fasting lipid panel is due, patient is trying to manage with diet Blood gluc ose outside reference range 848612695 R73.09 Following A1c with history of slight glucose elevation Adult heal th examination 298076669 Z00.01 Annual wellness exam complete. Labs are ordered Health Concerns Section Related Observation LastModified by Organization Detai ls LastModified Time None Recorded Concern Status LastModified by Organization Details LastModified Time None Recorded Advance Directives Directive Y: Payers Encounter Date Sequence Insurance Name Policy Number Policy Muhammad Covered Member ID Muhammad Member ID Guarantor Name 02/12/2024 1 [facility] [id number] Perla Delacruzee [id number] Perla Mendez 06/30/2024 1 [facility] [id number] [facility] [id number] Perla Mendez Notes Date Note Type Note Provider Name and Address Organization Details Recorded Time 02/12/2024 text/html Generic HPI TemplateReported bypatient.Notes:pt is here to re-establish. Her blood pressure is higher today . she is feeling fine without any symptoms. she has not had any excess caffeine or salt in diet. BRAYAN Doan Attn: [employer],[address] [facility], [place], [address], [place] [facility] 02/18/2024 08:48:23 06/30/2024 text/html Abdominal PainRe ported bypatient.Location:[facility] Quality:pain;dull Severity:moderate Duration:constant Onset/Timing:wax/wane Modifying Factors:nothing gives relief Associated Symptoms:no fever; no chills; no blood in the urine; no heartburn; no shortness of breath Other:denies possible Patient is here for annual wellness but does have some acute complaints BRAYAN Doan Attn: [employer] [facility], [place], [address], [facility] 07/08/2024 12:16:54 OBGyn Episode No OBEpisode recorded.
--- OUTSIDE RECORDS SUMMARY | 2025-01-13 07:30 | XMS_ITS | Encounter Summary ---
Author Organization [employer] [facility] Address 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
--- OUTSIDE RECORDS SUMMARY | 2025-01-13 07:30 | XMS_ITS | Encounter Summary ---
Author Organization [employer] [facility] Address [address] [place] [address] Care Team Providers Care Granulating Machine Operator Name Role Phone Tho Escobar MD Primary Care Provider [phone]- [phone] Encounter Details Date Type Department Care Team (Latest Contact Info) Description 08/13/1999 Outpatient Historical HIS [facility] Vivian Mackey MD NO ADDRESS ON FILE Nonspecific abnormal findings on radiological or other examinations of the breast (Primary Dx) Social History Tobacco Use Types Packs/Day Years Used Date Smoking Tobacco: Never Assessed Comments Unknown Sex and Gender Information Value Date Recorded Sex Assigned at Not on file 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
--- OUTSIDE RECORDS SUMMARY | 2025-01-13 07:30 | XMS_ITS | Clinical Summary ---
Author Organization [facility] Address [address] [place] [address] Phone Care Team Providers Care Underwriter Solicitation Director Name Role Phone Tho Escobar MD Primary Care Provider [phone]- [phone] Allergies Active Allergy Reactions Criticality Noted Date Comments Amoxicillin Rash Low 03/03/2017 Lisinopril Cough High 01/05/2020 Sulfa (Sulfonamide Antibiotics) Unknown 12/24 Medications biotin 1 mg Capsule Take by mouth. Active cetirizine HCl (ZYRTEC ORAL) Take by mouth. 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 Gender Identity Not on file Sexual Orientation Not on file Occupation Industry Job Start Date Job End Date Not on file Not on file Not on file Not on file Last Filed Vital Signs Vital Sign Reading Time Taken Comments Blood Pressure 134/80 02/08/2020 10:01 AM CDT Pulse - - Temperature - - Respiratory Rate - - Oxygen Saturation - - Inhaled Oxygen Concentration - - Weight 68 kg (150 lb) 01/06/2020 10:12 AM INDUSTRIAL MAINTENANCE MANAGER Height 162.6 cm (5' 4 ) 01/06/2020 10:12 AM INDUSTRIAL MAINTENANCE MANAGER Body Mass Index 25.75 01/06/2020 10:12 AM INDUSTRIAL MAINTENANCE MANAGER Plan of Treatment Health Maintenance Due Date Last Done Comments DTAP/TDAP/TD VACCINES (1 - Tdap) 1981 COLORECTAL SCREENING 2007 Colorectal Cancer Screening 2007 FIT-DNA Q 3 years 2007 FIT/FOBT Q 1 year 2007 Flex Sig/CT Colonography Q 5 years 2007 ZOSTER VACCINE (1 of 2) 2012 BREAST CANCER SCREENING 09/18/2022 09/18/20 21, 12/20/2019, 07/29/2018, Additional history exists CERVICAL CANCER SCREENING 01/06/2023 01/06/2020 INFLUENZA VACCINE (#1) 2024 08/18/2016 RSV VACCINE (60+ or ) (1 - 1-dose 75+ series) 2037 PNEUMOCOCCAL VACCINE 0-64 YEARS Aged Out No longer eligible based on patient's age to complete this topic Procedures Procedure Name Priority Date/Time Associated Diagnosis Comments MAMMO 3D JAS SCREEN BILAT W OR WO CAD Routine 09/18/2021 3:22 PM CDT Visit for screening mammogram CERV/VAG CYTO AGE BASED SCREEN PAP Routine 01/06/2020 10:45 AM INDUSTRIAL MAINTENANCE MANAGER Encounter for gynecological examination without abnormal finding from Last 3 Months or Most Recently Relevant to Health Maintenance Results * MAMMO SCRN BILAT 3D JAS W OR WO CAD (09/18/2021 3:22 PM CDT) Anatomical Region Laterality Modality Breast Bilateral Mammography 09/18/2021 3:22 PM CDT Impressions 09/19/2021 3:44 PM CDT IMPRESSION: Stable screening mammogram. Recommend routine followup. OVERALL FINAL ASSESSMENT: BI-RADS CATEGORY 1: Negative. DICTATION LOCATION: [facility] 09/19/2021 3:44 PM CDT DIGITAL SCREENING MAMMOGRAPHY WITH CAD WITH TOMOSYNTHESIS BILATERAL 09/18/2021 HISTORY: Visit for screening mammogram Comparison is made to multiple prior mammograms dating back to 04/13/2015. TECHNIQUE: A bilateral screening mammogram was performed. Low-dose full-field digital breast tomosynthesis examination was performed with 2D and 3D acquisitions. Examination is read in conjunction with computer aided detection. FINDINGS: The breast parenchyma has scattered fibroglandular densities. No new dominant masses, suspicious calcifications or areas of parenchymal asymmetry or distortion are identified. CAD was utilized. Procedure Note Miriam Zhang MD - 09/19/2021 DIGITAL SCREENING MAMMOGRAPHY WITH CAD WITH TOMOSYNTHESIS BILATERAL 09/18/2021 HISTORY: Visit for screening mammogram Comparison is made to multiple prior mammograms dating back to 04/13/2015. TECHNIQUE: A bilateral screening mammogram was performed. Low-dose full-field digital breast tomosynthesis examination was performed with 2D and 3D acquisitions. Examination is read in conjunction with computer aided detection. FINDINGS: The breast parenchyma has scattered fibroglandular densities. No new dominant masses, suspicious calcifications or areas of parenchymal asymmetry or distortion are identified. CAD was utilized. IMPRESSION: Stable screening mammogram. Recommend routine followup. OVERALL FINAL ASSESSMENT: BI-RADS CATEGORY 1: Negative. DICTATION LOCATION: [facility] us Tho Escobar MD MAMMO ORDERABLES Final Res ult * CERV/VAG CYTO AGE BASED SCREEN PAP (01/06/2020 10:45 AM INDUSTRIAL MAINTENANCE MANAGER) COMMENT (PAP): SEE COMMENT 0 8:29 AM INDUSTRIAL MAINTENANCE MANAGER [facility] Comment: This order for age-based cervical cancer and STI screening follows ACOG guidelines(PB 168, 140, TCF259). See individual assays for performing site location. CLINICAL INFORMATION Information not provided SCREENING 01/11/2020 8:29 AM INDUSTRIAL MAINTENANCE MANAGER [facility] LAST MENSTRUAL PERIOD INFORMATION NOT PROVIDED 01/11/2020 8:29 AM INDUSTRIAL MAINTENANCE MANAGER [facility] PREV PAP: INFORMATION NOT PROVIDED 01/11/2020 8:29 AM INDUSTRIAL MAINTENANCE MANAGER [facility] PREV BX: INFORMATION NOT PROVIDED 01/11/2020 8:29 AM INDUSTRIAL MAINTENANCE MANAGER [facility] SOURCE Endocervix 01/11/2020 8:29 AM INDUSTRIAL MAINTENANCE MANAGER [facility] ADEQUACY: SEE COMMENT 01/11/2020 8:29 AM INDUSTRIAL MAINTENANCE MANAGER [facility] Comment: Satisfactory for evaluation. Endocervical/transformation zone component present. Age and/or menstrual status not provided PAP INTERP Negative for intraepithelial lesion or malignancy. 01/11/2020 8:29 AM INDUSTRIAL MAINTENANCE MANAGER [facility] COMMENT SEE COMMENT 01/11/2020 8:29 AM INDUSTRIAL MAINTENANCE MANAGER [facility] Comment: This case could not be evaluated with computer assisted technology. The slide was manually screened according to routine procedures. PLANT MAINTENANCE SUPERVISOR: SEE COMMENT 2019 8:29 AM INDUSTRIAL MAINTENANCE MANAGER [facility] Comment: BLG, CT(ASCP) CT screening location: [place] [address] [place] [id number] EXPLANATORY NOTE SEE COMMENT 020 8:29 AM INDUSTRIAL MAINTENANCE MANAGER [facility] Comment: EXPLANATORY NOTE: The Pap is a screening test for cervical cancer. It is not a diagnostic test and is subject to false negative and false positive results. It is most reliable when a satisfactory sample, regularly obtained, is submitted with relevant clinical findings and history, and when the Pap result is evaluated along with historic and current clinical information. HPV E6/E7 Not Detected Not Detected 01/11/2020 8:29 AM INDUSTRIAL MAINTENANCE MANAGER [facility] Comment: This test was performed using the APTIMA HPV Assay ([employer] This assay detects E6/E7 viral messenger RNA (mRNA) from 14 high-risk HPV types (16,18,31,33,35,39,45,51,52,56,58,59,66,68). The analytical performance characteristics of this assay have been determined by [employer]. The modifications have not been cleared or approved by the FDA. This assay has been validated pursuant to the CLIA regulations and is used for clinical purposes. Genital SWAB OF ENDOCERVIX / Unknown Collection / Unknown 01/06/2020 10:45 AM INDUSTRIAL MAINTENANCE MANAGER 01/06/2020 6:35 PM INDUSTRIAL MAINTENANCE MANAGER Narrative [facility] - 01/11/2020 8:29 AM INDUSTRIAL MAINTENANCE MANAGER Performing Organization Information: Site ID: [id number] [facility] Address: [address] [address] Director: Rey Tran D.O., MPH Site ID: [id number] [facility] Address: [address] [address] Director: Gonzalo Barkley Sarah Torres MD PATHOLOGY/CYTOLOGY ORD ERABLES Final Result [facility] [phone] from Last 3 Months or Most Recently Relevant to Health Maintenance Insurance [employer] PPO Care Teams Underwriter Solicitation Director Relationship Specialty Start Date End Date Tho Escobar MD [address] [place] [address] PCP - General 10/02/15
[2025-01-13 08:10] LABS: Cholesterol 251 mg/dL (0-200); HDL Direct 65 mg/dL; Triglycerides 88 mg/dL (<150)
[2025-01-13 08:21] LABS: LDL Cholesterol Direct 149 mg/dL
[2025-01-13 09:14] LABS: Hemoglobin A1C 5.9 % (<5.7)
== END 2025-01-13 07:19 | disposition home or self-care (01) ==
LOC: ANHLAB 07:22
DX: E78.5 Hyperlipidemia, unspecified (principal); R73.9 Hyperglycemia, unspecified
CPT/HCPCS: 36415; 80061; 83036; 99212; G0463

== ENCOUNTER 2025-05-04 09:30 | Outpatient (RCR) | payer OTHER, SELFPAY ==
--- NOTE | 2025-04-10 14:18 | OTOPEVAL1 ---
Assessment and note entered by Boyd Miranda, DANIEL/Carlotta, CHT OT Evaluation Information 04/10/25 Assessment Status Evaluation Diagnosis M79.641, M79.642 Pain in both hands Subjective Information Patient has been experiencing bilateral hand pain for several years. She points to the IP joints of her fingers, noting Heberden's nodes have slowly been appearing and becoming more painful. 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 Difficulties with gripping/opening jars, picking up plates out of the cotton dispatcher, using scissors to cut something thick, opening a water bottle with a small lid. She has some adaptive equipment to help with opening containers/drinks. Reported Pain Level Pain Score 1: Self Report Additional Pain Score Comments Grossly bilateral hands are 1/10 pain. The left middle finger is the worst finger right now, and she reports this finger can get up to 4/10 at times. She reports pain if her hands/fingers are bumped. Assessment OT Clinical Summary Patient referred to OT with bilateral hand pain. 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 She presents with decreased ROM and acid conditioner strength as well as pain that limits every day use. Issued active ROM HEP and began educating on joint protection techniques and adaptive equipment. Continued follow up indicated for use of modalities, continued joint protection education, continued adaptive equipment teaching, and progression of her HEP. Plan of Care Interventions Therapeutic Exercise,Manual Therapy,Therapeutic Activities,Self-Care/Home Management,Paraffin OT Services Indicated Yes Treatment Frequency and 1x/week for 4 visits Duration These treatments will address the objective and functional deficits as defined above. The patient will be advanced safely and appropriately in order for the patient to progress towards his/her prior level of function. Additional exercises will be introduced and as well as a comprehensive home exercise program upon discharge, if needed, ?to ensure carryover of functional gains achieved in the clinic. This treatment plan has been reviewed and agreement upon by the patient.
--- NOTE | 2025-04-10 14:18 | OPREHPOC ---
Outpatient Therapy Plan of Care This is a Multidisciplinary Plan of Care that may contain components documented by all disciplines (PT, OT, and ST.) OT Problem 1 OT Problem #1 Knowledge Deficit OT Goal 1 Goal / Goal Update Patient to be independent with instructed materials. Target Visit 4 OT Problem 2 OT Problem #2 Impaired Flexibility OT Goal 1 Goal / Goal Update Patient to improve functional flexibility of bilateral hands as measured by improving to <1 cm gap with hook fist. Target Visit 4 OT Problem 3 OT Problem #3 Impaired Strength OT Goal 1 Goal / Goal Update Patient to improve bilateral rotor blade installer strengths by 5 lbs. to increase functional rotor blade installer strength for ADLs . Target Visit 4
--- NOTE | 2025-05-04 10:10 | OTOPDC ---
Assessment and note entered by Boyd Miranda, OTR/L, EDDIE OT D/C Summary 05/04/25 Assessment Status Discharge Diagnosis M79.641, M79.642 Pain in both hands Subjective Information Patient reports being very happy with her progress. She reports she has learned a lot of joint protection techniques that have helped her adjust how she uses her hands and overall has carried over into experiencing less daily pain. She reports improved functional use of her hands for opening jars, picking up plates out of the railroad passenger agent, using adapted scissors for cutting tasks. She reports she is more intentional with hand use, like how she holds the handle on her heavy measuring cup, turning on light switches, and gripping items. She also notes she feels more flexible. Reported Pain Level Pain Score 0/10 bilat. hands Additional Pain Score Comments Patient reports she has progressed to 0/10 at rest, just reporting some mild tightness. She reports at worst her left hand has gotten up to this week is 1/10, compared to 4/10 at the start of care. Assessment OT Clinical Summary Patient referred to OT with bilateral hand pain. She has made excellent progress with therapy and has been very compliant with her HEP and utilizing joint protection techniques. She is experiencing less pain, has improved ROM, as well as improved sfdc solution architect strength. (R) sfdc solution architect strength improved from 27 to 45 lbs. and (L) sfdc solution architect strength improved from 29 to 45 lbs. She demonstrates independence with all materials and is in agreement with discharge today . Thank you for this referral. OT Services Indicated No
--- NOTE | 2025-05-04 10:11 | OPREHPOC ---
Outpatient Therapy Plan of Care This is a Multidisciplinary Plan of Care that may contain components documented by all disciplines (PT, OT, and ST.) OT Problem 1 OT Problem #1 Knowledge Deficit OT Goal 1 Goal / Goal Update Patient to be independent with instructed materials. ---OT D/C 05/04/25--- Met Target Visit 4 Progress Met OT Problem 2 OT Problem #2 Impaired Flexibility OT Goal 1 Goal / Goal Update Patient to improve functional flexibility of bilateral hands as measured by improving to <1 cm gap with hook fist. ---OT D/C 05/04/25--- Met with the left hand, partially met with the right hand Target Visit 4 Progress Partially Met OT Problem 3 OT Problem #3 Impaired Strength OT Goal 1 Goal / Goal Update Patient to improve bilateral vp clinical strengths by 5 lbs. to increase functional vp clinical strength for ADLs . ---OT D/C 05/04/25--- Met Target Visit 4
== END 2025-05-04 11:22 | disposition home or self-care (01) ==
LOC: ANHOT 09:30
PROVIDERS: PCP Nurse Practitioner Family; Visit Provider Internal Medicine Rheumatology
DX: M79.641 Pain in right hand (principal); M79.642 Pain in left hand; M25.511 Pain in right shoulder
CPT/HCPCS: 97018; 97110; 97140; 97165

== ENCOUNTER 2025-05-19 13:00 | Outpatient (RCR) | payer OTHER, SELFPAY ==
--- NOTE | 2025-04-19 11:42 | OPREHPOC ---
Outpatient Therapy Plan of Care This is a Multidisciplinary Plan of Care that may contain components documented by all disciplines (PT, OT, and ST.) PT Problem 1 PT Problem #1 Knowledge Deficit PT Goal 1 Goal / Goal Update 1. Patient will perform independent HEP Target Visit 3 PT Problem 2 PT Problem #2 Impaired Strength PT Goal 1 Goal / Goal Update 1. Improve pelvic floor strength to 4/5 to reduce incontinence 2. Improve pelvic floor endurance to 10 seconds to reduce incontinence Target Visit 5 PT Problem 3 PT Problem #3 Impaired Functional ADLs PT Goal 1 Goal / Goal Update 1. Patient will report incontinence no more than 1 time per week 2. Patient will not need to modify daily routine due to incontinence Target Visit 5
--- NOTE | 2025-04-19 11:42 | PTOPEVAL1 ---
Assessment and note entered by Ana Lombardi DPT Evaluation Information Assessment Status Evaluation ICD-10 Condition Codes (PT) Weakness R53.1,Stress incontinence N39.3 Subjective Information Pt reports she has been diagnosed with a prolapse and has some incontinence. Incontinence has been for about 8 years. Occurs multiple times a day but is a small volume. Will sometimes wear pads or liners but has moved more to absorbent underwear. Voids 10-12 times a day and sometimes one time a night. Can hold urge to void up to 60 minutes. Denies pain with urination. BM 4-5 times a day and had her gall bladder removed a few years ago. 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 Denies fecal incontinence. Denies history of pelvic pain. History of uterine fibroids and removals. No other b/b history. and delivered 2 times, both vaginal and minor tearing with the second. Patient goal: not to worry about urinary incontinence or wearing pads. Sometimes changes her morning routine in particular to work around b /b schedule and will not go walk for exercise Returns to MD tomorrow for annual visit. Reported Pain Level Pain Score 0: Self Report Assessment PT Clinical Summary The patient is presenting to skilled therapy with a history of urinary incontinence and reports a diagnosis of prolapse. She presents with decreased pelvic floor strength and endurance, as well as decreased hip and abdominal strength, which are contributing to her daily incontinence and need to modify her daily routine. She will benefit from therapy to address her impairments in order to reduce incontinence and restore full function. Plan of Care Interventions Manual Therapy,Patient/Caregiver Education, Therapeutic Activities,Therapeutic Exercise PT Services Indicated Yes Treatment Frequency and 1 time a week for 5 visits Duration These treatments will address the objective and functional deficits as defined above. The patient will be advanced safely and appropriately in order for the patient to progress towards his/her prior level of function. Additional exercises will be introduced and as well as a comprehensive home exercise program upon discharge, if needed, ?to ensure carryover of functional gains achieved in the clinic. This treatment plan has been reviewed and agreement upon by the patient.
--- NOTE | 2025-05-19 13:46 | OPREHPOC ---
Outpatient Therapy Plan of Care This is a Multidisciplinary Plan of Care that may contain components documented by all disciplines (PT, OT, and ST.) PT Problem 1 PT Problem #1 Knowledge Deficit PT Goal 1 Goal / Goal Update 1. Patient will perform independent HEP Target Visit 3 Progress Met PT Problem 2 PT Problem #2 Impaired Strength PT Goal 1 Goal / Goal Update 1. Improve pelvic floor strength to 4/5 to reduce incontinence 2. Improve pelvic floor endurance to 10 seconds to reduce incontinence update 05/19/25 1. improved to 3/5 2. improved to 4 Target Visit 5 Progress Partially Met PT Problem 3 PT Problem #3 Impaired Functional ADLs PT Goal 1 Goal / Goal Update 1. Patient will report incontinence no more than 1 time per week 2. Patient will not need to modify daily routine due to incontinence update 05/19/25 1. less but still daily 2. met Target Visit 5 Progress Partially Met
--- NOTE | 2025-05-19 13:46 | PTOPDC ---
Assessment and note entered by Ana Lombardi DPT Evaluation Information Assessment Status Discharge ICD-10 Condition Codes (PT) Weakness R53.1,Stress incontinence N39.3 Subjective Information Pt reports improvements with therapy. Is voiding 8 times a day and has not gotten up in the night recently. Incontinence is not happening as frequently and is a smaller volume. Less pad and liner use and is also noticing her absorbent underwear is graphite pan drier tender. Reported Pain Level Pain Score 0: Self Report Assessment PT Clinical Summary The patient has made excellent progress in therapy . She reports decreased frequency of urinary incontinence and frequency. She also demonstrates improved hip and abdominal strength, as well as improved pelvic floor strength and endurance. Due to her progress, plan for discharge at this time. She has been educated to continue HEP and follow up with PT and/or MD as needed. Plan of Care PT Services Indicated No
== END 2025-05-19 15:22 | disposition home or self-care (01) ==
LOC: ANHPT 13:00
PROVIDERS: PCP Nurse Practitioner Family; Visit Provider Nurse Practitioner Family
DX: N39.3 Stress incontinence (female) (male) (principal)
CPT/HCPCS: 97112; 97161; 97530

== ENCOUNTER 2025-08-08 15:00 | Outpatient (RCR) | payer OTHER, SELFPAY ==
--- NOTE | 2025-05-23 15:57 | OTOPEVAL1 ---
Assessment and note entered by DANIEL Lovelace/Carlotta, CHT OT Evaluation Information Assessment Status Evaluation Diagnosis M25.511 Right shoulder pain Subjective Information Patient reports waking up with right shoulder pain ~3 months ago. Her PA prescribed Meloxicam and this has helped with the pain, but she doesn't want to be on the medication forever. She is right hand dominant. She notices pain when reaching back in her car with the right hand or even externally rotating the shoulder to reach her water in her cup hyman in the car causes shoulder pain. Reaching up high in a cabinet or reaching for hanging clothes bothers her too. Reported Pain Level Pain Score 1: Self Report Assessment OT Clinical Summary Patient referred to OT with dx of shoulder pain that limits her ability to reach back, externally rotate, or fully flex the shoulders without pain during ADLs. She presents with a forward rolled and elevated right shoulder with signs and symptoms of impingement. Issued stretches and gentle ROM. Educated on posture and it's role in shoulder pain diagnoses. Patient demonstrates excellent understanding of all materials. Continued follow up indicated to progress HEP, use of modalities, manual therapy, and postural education to facilitate reduced shoulder pain and improved (R) UE use for ADLs. Plan of Care Interventions Therapeutic Exercise,Manual Therapy,Neuro Re- education,Therapeutic Activities,Hot Pack/Cold Pack OT Services Indicated Yes Treatment Frequency and 1x/week for 5 visits Duration Patient and therapist discussed 1 vs 2 times a week. Patient reports she prefers 1x/week. She demonstrates excellent understanding of HEP and we discussed it would be appropriate to see her 1x/ week for HEP check in and progression. She also is not requiring hands on assist/instruction for body mechanics. These treatments will address the objective and functional deficits as defined above. The patient will be advanced safely and appropriately in order for the patient to progress towards his/her prior level of function. Additional exercises will be introduced and as well as a comprehensive home exercise program upon discharge, if needed, ?to ensure carryover of functional gains achieved in the clinic. This treatment plan has been reviewed and agreement upon by the patient.
--- NOTE | 2025-05-23 15:57 | OPREHPOC ---
Outpatient Therapy Plan of Care This is a Multidisciplinary Plan of Care that may contain components documented by all disciplines (PT, OT, and ST.) OT Problem 1 OT Problem #1 Knowledge Deficit OT Goal 1 Goal / Goal Update Patient to be independent with instructed materials. Target Visit 5 OT Problem 2 OT Problem #2 Pain OT Goal 1 Goal / Goal Update Patient to report reduced (R) shoulder pain to 1/ 10 or less with ADLs that involve reaching into a high cabinet or reaching for items in her car. Target Visit 5 OT Problem 3 OT Problem #3 Impaired Flexibility OT Goal 1 Goal / Goal Update Improve functional flexibility of the right shoulder for ADLs as measured by: 1. Increasing (R) internal rotation ROM to be symmetrical to the left. 2. Be able to progress to wall angels without pain . Target Visit 5 OT Problem 4 OT Problem #4 Impaired Strength OT Goal 1 Goal / Goal Update Improve functional strength of the right shoulder for reaching into overhead cabinets and her closet as measured by: 1. increasing (R) shoulder flexion and abduction strength to 4/5. 2. increasing (R) shoulder internal and external rotation strength to 4/5 Target Visit 5
--- NOTE | 2025-06-20 11:15 | OTOPEVAL1 ---
Assessment and note entered by Boyd Miranda, PATRICKR/Carlotta, CHT OT Progress Update 06/20/25 Diagnosis M25.511 Right shoulder pain Subjective Information Patient reports her right shoulder is making progress, noting no pain at rest. She reports her ROM into external rotation is improving, she can now reach for her water cup and reach into her back seat with better motion and less pain, but not pain free with these particular activities. Reaching up in a high cabinet or hanging up clothes is also better, but not pain free. She has been very compliant with her exercises and receptive to body mechanics education. Assessment OT Clinical Summary Patient referred to OT with dx of shoulder pain that limits her ability to reach back, externally rotate, or fully flex the shoulders without pain during ADLs. She has been completing HEP focused on reduced shoulder impingement - elise scapular strengthening with theraband, posterior capsule stretching, pec major/minor stretching, and improved scapular mechanics during ADLs. Patient is doing very well with her home program and all instructed materials. Patient's strength and function are improving. She is having less pain and progressed to no pain at rest. She continues to have impingement symptoms in the right shoulder with motion >90 and with external rotation. Continued skilled OT indicated to progress HEP, use of modalities, manual therapy, and postural education to facilitate reduced shoulder pain and improved (R) UE use for ADLs. Plan of Care Interventions Therapeutic Exercise,Manual Therapy,Neuro Re- education,Therapeutic Activities,Hot Pack/Cold Pack OT Services Indicated Yes Treatment Frequency and 1x/week for 5 visits Duration Patient and therapist discussed 1 vs 2 times a week. Patient reports she prefers 1x/week. She demonstrates excellent understanding of HEP and we discussed it would be appropriate to see her 1x/ week for HEP check in and progression. She also is not requiring hands on assist/instruction for body mechanics. These treatments will address the objective and functional deficits as defined above. The patient will be advanced safely and appropriately in order for the patient to progress towards his/her prior level of function. Additional exercises will be introduced and as well as a comprehensive home exercise program upon discharge, if needed, ?to ensure carryover of functional gains achieved in the clinic. This treatment plan has been reviewed and agreement upon by the patient.
--- NOTE | 2025-06-20 11:16 | OPREHPOC ---
Outpatient Therapy Plan of Care This is a Multidisciplinary Plan of Care that may contain components documented by all disciplines (PT, OT, and ST.) OT Problem 1 OT Problem #1 Knowledge Deficit OT Goal 1 Goal / Goal Update Patient to be independent with instructed materials. ---OT POC UPDATE 06/20/25--- Met, continue as HEP is progressed Target Visit 10 OT Problem 2 OT Problem #2 Pain OT Goal 1 Goal / Goal Update Patient to report reduced (R) shoulder pain to 1/ 10 or less with ADLs that involve reaching into a high cabinet or reaching for items in her car. ---OT POC UPDATE 06/20/25--- Progressing with pain during ADLs, continue goal Target Visit 10 OT Problem 3 OT Problem #3 Impaired Flexibility OT Goal 1 Goal / Goal Update Improve functional flexibility of the right shoulder for ADLs as measured by: 1. Increasing (R) internal rotation ROM to be symmetrical to the left. 2. Be able to progress to wall angels without pain . ---OT POC UPDATE 06/20/25--- 1. Progressing, continue goal 2. Progrsesing, continue goal Target Visit 10 OT Problem 4 OT Problem #4 Impaired Strength OT Goal 1 Goal / Goal Update Improve functional strength of the right shoulder for reaching into overhead cabinets and her closet as measured by: 1. increasing (R) shoulder flexion and abduction strength to 4/5. 2. increasing (R) shoulder internal and external rotation strength to 4/5 ---OT POC UPDATE 06/20/25--- 1. Met 2. Met Target Visit 5
--- NOTE | 2025-08-08 15:52 | OTOPDC ---
Assessment and note entered by DANIEL Lovelace/Carlotta, CHT Evaluation Information Assessment Status Discharge Diagnosis M25.511 Right shoulder pain Subjective Information Patient reports her right shoulder is making progress, noting no pain at rest. She reports her ROM into external rotation is improving, she can now reach for her water cup and reach into her back seat with better motion and less pain, but not pain free with these particular activities. Reaching up in a high cabinet or hanging up clothes is also better, but not pain free. She has been very compliant with her exercises and receptive to body mechanics education. Reported Pain Level Pain Score 2: Self Report Assessment OT Clinical Summary Patient referred to OT with dx of shoulder pain that limits her ability to reach back, externally rotate, or fully flex the shoulders without pain during ADLs. She has been completing HEP focused on reduced shoulder impingement - elise scapular strengthening with theraband, posterior capsule stretching, pec major/minor stretching, and improved scapular mechanics during ADLs. Patient is doing very well with her home program and all instructed materials. Patient's strength and function are improving. Her pain levels have been relatively unchanged, however she does note her function is improving. She continues to have reduced scapular mechanics with functional use. Reviewed all exercises and patient is independent with all materials. Discharging at this time with HEP. Plan of Care OT Services Indicated No
--- NOTE | 2025-08-08 15:53 | OPREHPOC ---
Outpatient Therapy Plan of Care This is a Multidisciplinary Plan of Care that may contain components documented by all disciplines (PT, OT, and ST.) OT Problem 1 OT Problem #1 Knowledge Deficit OT Goal 1 Goal / Goal Update Patient to be independent with instructed materials. ---OT POC UPDATE 06/20/25--- Met, continue as HEP is progressed ---OT D/C 08/08/25--- Met Target Visit 10 OT Problem 2 OT Problem #2 Pain OT Goal 1 Goal / Goal Update Patient to report reduced (R) shoulder pain to 1/ 10 or less with ADLs that involve reaching into a high cabinet or reaching for items in her car. ---OT POC UPDATE 06/20/25--- Progressing with pain during ADLs, continue goal ---OT D/C 08/08/25--- Not met Target Visit 10 OT Problem 3 OT Problem #3 Impaired Flexibility OT Goal 1 Goal / Goal Update Improve functional flexibility of the right shoulder for ADLs as measured by: 1. Increasing (R) internal rotation ROM to be symmetrical to the left. 2. Be able to progress to wall angels without pain . ---OT POC UPDATE 06/20/25--- 1. Progressing, continue goal 2. Progrsesing, continue goal ---OT D/C 08/08/25--- 1. Not met 2. Not met D/C with HEP Target Visit 10 OT Problem 4 OT Problem #4 Impaired Strength OT Goal 1 Goal / Goal Update Improve functional strength of the right shoulder for reaching into overhead cabinets and her closet as measured by: 1. increasing (R) shoulder flexion and abduction strength to 4/5. 2. increasing (R) shoulder internal and external rotation strength to 4/5 ---OT POC UPDATE 06/20/25--- 1. Met 2. Met Target Visit 5
== END 2025-08-09 13:01 | disposition home or self-care (01) ==
LOC: ANHGOSHOT 15:00
PROVIDERS: Visit Provider Physician Assistant
DX: M25.511 Pain in right shoulder (principal)
CPT/HCPCS: 97110; 97112; 97140; 97166

== ENCOUNTER 2025-09-06 13:34 | Outpatient (CLI) | payer OTHER, SELFPAY ==
--- NOTE | ~2025-09-06 | MM_ITS ---
EXAMINATION: MM screening [facility] BI w indira HISTORY: Screening TECHNIQUE: Craniocaudal and mediolateral oblique 3-D tomosynthesis images were obtained and synthetic 2-D images were generated. CAD analysis was submitted and interpreted. COMPARISON: 10/20/2022 BREAST PARENCHYMAL COMPOSITION: Not Dense: The breasts are almost entirely fatty. FINDINGS: There is no evidence of suspicious mass, calcification, or architectural distortion to suggest malignancy. There has been no suspicious interval change. IMPRESSION: 1. No mammographic evidence of malignancy. Recommend routine screening mammography in one year. BI-RADS Category 2: Benign finding(s) Reviewed, dictated and finalized at location Q. IMPRESSION: 1. No mammographic evidence of malignancy. Recommend routine screening mammogra phy in one year. BI-RADS Category 2: Benign finding(s)
== END 2025-09-06 13:35 | disposition home or self-care (01) ==
LOC: ANHFOHIMG 13:36
PROVIDERS: PCP Nurse Practitioner Family; Visit Provider Nurse Practitioner Family
DX: Z12.31 Encounter for screening mammogram for malignant neoplasm of breast (principal)
CPT/HCPCS: 77063; 77067